=== PATIENT | male | born 1960 | race African-American/Black ===

== ENCOUNTER 2016-06-23 16:53 | Emergency (ER) | payer MEDICARE, OTHER ==
[~2016-06-23] VITALS: Ht 175.3 cm; Wt 76.0 kg
[~2016-06-23 16:53] MED LIST: ASCO500C PO; GLUCTES27 XX; NOVOLOGP2 SQ; OMPR20CCR PO; PROP20 PO; SM A81CH CHEW; VITA20002 PO; VITA250L PO; [UNRECOGNIZED DRUG - CODE] PO
[2016-06-23 17:00] VITALS: BP 127/71; PULSE 78; RESP 16; TEMP 98.6; O2SAT 97
--- NOTE | 2016-06-23 17:09 | PD ---
Physical Exam Narrative GENERAL: WD/WN in nad SKIN: Warm and dry. HEAD: Atraumatic. Normocephalic. No racoon's eyes no feliciano's sign. No bruising nor abrasion. EYES: Pupils equal and round. No scleral icterus. No injection or drainage. ENT: No nasal bleeding or discharge. Mucous membranes pink and moist. NECK: Trachea midline. No JVD. CARDIOVASCULAR: Regular rate and rhythm. RESPIRATORY: No accessory muscle use. Clear to auscultation. Breath sounds equal bilaterally. GASTROINTESTINAL: Abdomen soft, non-tender, nondistended. Hepatic and splenic margins not palpable. MUSCULOSKELETAL: Extremities without clubbing, cyanosis, or edema. No obvious deformities. NEUROLOGICAL: Awake and alert. No obvious cranial nerve deficits. Motor grossly within normal limits. Five out of 5 muscle strength in the arms and legs. Normal speech. PSYCHIATRIC: Appropriate mood and affect; insight and judgment normal. Data Data Last Documented VS Vital Signs Date Time Temp Pulse Resp B/P Pulse Ox O2 Delivery O2 Flow Rate FiO2 06/23/16 18:00 78 17 124/70 95 Room Air 06/23/16 17:00 98.6 Orders Electrocardiogram (06/23/16 17:04) Complete Blood Count With Diff (06/23/16 17:04) Comprehensive Metabolic Panel (06/23/16 17:04) Magnesium (Mg) (06/23/16 17:04) Ckmb (Isoenzyme) Profile (06/23/16 17:04) Troponin I (06/23/16 17:04) Act Partial Throm Time (Ptt) (06/23/16 17:04) Prothrombin Time / Inr (Pt) (06/23/16 17:04) Chest, Single Ap (06/23/16 17:04) Ct Brain W/O Iv Contrast(Rout) (06/23/16 17:04) Ecg Monitoring (06/23/16 17:04) Iv Access Insert/Monitor (06/23/16 17:04) Oximetry (06/23/16 17:04) Ondansetron Inj (Zofran Inj) (06/23/16 17:15) Sodium Chloride 0.9% Flush (Ns Flush) (06/23/16 17:15) Ct Facial Bones W/O Iv Cont (06/23/16 17:04) Ct Cerv Spine W/O Contrast (06/23/16 ) CKMB (06/23/16 17:15) CKMB% (06/23/16 17:15) Oxycodone-Acetamin 5-325 Mg (Percocet (06/23/16 19:15) Labs Laboratory Tests Test 06/23/16 17:15 White Blood Count 6.5 TH/MM3 Red Blood Count 3.89 MIL/MM3 Hemoglobin 12.1 GM/DL Hematocrit 36.4 % Mean Corpuscular Volume 93.6 FL Mean Corpuscular Hemoglobin 31.1 PG Mean Corpuscular Hemoglobin 33.3 % Concent Red Cell Distribution Width 15.5 % Platelet Count 120 TH/MM3 Mean Platelet Volume 10.3 FL Neutrophils (%) (Auto) 33.8 % Lymphocytes (%) (Auto) 39.8 % Monocytes (%) (Auto) 22.9 % Eosinophils (%) (Auto) 2.5 % Basophils (%) (Auto) 1.0 % Neutrophils # (Auto) 2.2 TH/MM3 Lymphocytes # (Auto) 2.6 TH/MM3 Monocytes # (Auto) 1.5 TH/MM3 Eosinophils # (Auto) 0.2 TH/MM3 Basophils # (Auto) 0.1 TH/MM3 CBC Comment DIFF FINAL Differential Comment Prothrombin Time 13.1 SEC Prothromb Time International 1.2 RATIO Ratio Activated Partial 34.4 SEC Thromboplast Time Sodium Level 139 MEQ/L Potassium Level 4.1 MEQ/L Chloride Level 107 MEQ/L Carbon Dioxide Level 23.3 MEQ/L Anion Gap 9 MEQ/L Blood Urea Nitrogen 15 MG/DL Creatinine 2.38 MG/DL Estimat Glomerular Filtration 34 ML/MIN Rate Random Glucose 104 MG/DL Calcium Level 8.2 MG/DL Magnesium Level 1.7 MG/DL Total Bilirubin 0.8 MG/DL Aspartate Amino Transf 84 U/L (AST/SGOT) Alanine Aminotransferase 34 U/L (ALT/SGPT) Alkaline Phosphatase 189 U/L Total Creatine Kinase 725 U/L Creatine Kinase MB 3.5 NG/ML Creatine Kinase MB % 0.5 % Troponin I LESS THAN 0.02 NG/ML Total Protein 6.9 GM/DL Albumin 2.5 GM/DL [facility] Supervised Visit with GARIMA: Yes Differential Diagnosis Patient care assumed from Howie Reid PA-C at 1710. Patient was on ambulance wall and now has a room in the emergency Department and I will be assuming primary care of this patient. Patient has had a syncopal episode after a coughing fit while smoking. No SOB, chest pain nor anemia. Imaging negative. Labs reassuring. He is feeling well at this time, requests discharge. Smoking cessation counseling. Discussed need for follow up with PCP. Diagnosis Primary Impression: Closed head injury Qualified Code: S09.90XA - Closed head injury, initial encounter Additional Impression: Syncope Disposition: 01 DISCHARGE HOME Condition: Stable Isaias De Leon MD Jun 23, 2016 17:09
[2016-06-23] MEDS ORDERED: ONDANSETRON HCL 4 MG/2 ML VIAL IVP ONE (17:15)
[2016-06-23] MEDS ORDERED: SODIUM CHLORIDE 0.9% FLUSH 5 ML FLUSH IVF PRN (17:15)
[2016-06-23 17:31] LABS: AUTOMATED NEUTROPHIL # 2.2 TH/MM3 (1.8-7.7); BASOPHIL # 0.1 TH/MM3 (0-0.2); EOSINOPHIL # 0.2 TH/MM3 (0-0.4); EOSINOPHIL % 2.5 % (0.0-4.0); HEMATOCRIT 36.4 % (39.0-51.0); HEMO FLAGS DIFF FINAL; LYMPH % 39.8 % (9.0-44.0); LYMPHOCYTE # 2.6 TH/MM3 (1.0-4.8); MEAN CELL VOLUME 93.6 FL (80.0-100.0); MEAN CORPUSCULAR HEMOGLOBIN 31.1 PG (27.0-34.0); MEAN CORPUSCULAR HGB CONC 33.3 % (32.0-36.0); MONO % 22.9 % (0.0-8.0); NEUT % 33.8 % (16.0-70.0); PLATELET COUNT 120 TH/MM3 (150-450); RED BLOOD COUNT 3.89 MIL/MM3 (4.50-5.90); RED CELL DISTRIBUTION WIDTH 15.5 % (11.6-17.2); WHITE BLOOD COUNT 6.5 TH/MM3 (4.0-11.0)
--- NOTE | 2016-06-23 17:31 | RADRPT ---
EXAM DATE/TIME: 06/23/2016 17:13 [facility] COMPARISON: CHEST SINGLE AP, January 09, 2016, 3:14. INDICATIONS : Palpitations MEDICAL HISTORY : Hypertension. Hepatitis C. Chronic obstructive pulmonary disease. Myocardial infarction. Coronary artery disease. SURGICAL HISTORY : None. ENCOUNTER: Initial ACUITY: 1 day PAIN SCORE: 0/10 LOCATION: Bilateral chest FINDINGS: A single view of the chest demonstrates the lungs to be symmetrically aerated without evidence of mas s, infiltrate or effusion. The cardiomediastinal contours are unremarkable. Osseous structures are intact. CONCLUSION: No acute disease. Domingo Nelson MD on June 23, 2016 at 17:29 Board Certified Radiologist. This report was verified electronically.
[2016-06-23 17:44] LABS: APTT (PATIENT) 34.4 SEC (24.3-30.1); INTERNATIONAL NORMALIZED RATIO 1.2 RATIO; PROTHROMBIN TIME - PATIENT 13.1 SEC (9.8-11.6)
--- NOTE | 2016-06-23 17:47 | RADRPT ---
EXAM DATE/TIME: 06/23/2016 17:25 [facility] COMPARISON: No previous studies available for comparison. INDICATIONS : Syncopal episode. RADIATION DOSE: 56.35 CTDIvol (mGy) IF STROKE ALERT - check box below MEDICAL HISTORY : Hypertension. SURGICAL HISTORY : None. ENCOUNTER: Initial ACUITY: 1 day PAIN SCALE: 0/10 LOCATION: cranial TECHNIQUE: Multiple contiguous axial images were obtained of the head. Using automated exposure control and adj ustment of the mA and/or kV according to patient size, radiation dose was kept as low as reasonably a chievable to obtain optimal diagnostic quality images. FINDINGS: CEREBRUM: The ventricles are normal for age. No evidence of midline shift, mass lesion, hemorrhage or acute in farction. No extra-axial fluid collections are seen. POSTERIOR FOSSA: The cerebellum and brainstem are intact. The 4th ventricle is midline. The cerebellopontine angle i s unremarkable. EXTRACRANIAL: The visualized portion of the orbits is intact. There is a posterior left parietal scalp injury. SKULL: The calvaria is intact. No evidence of skull fracture. CONCLUSION: 1. No intracranial abnormality. 2. Left posterior parietal scalp swelling. Domingo Nelson MD on June 23, 2016 at 17:45 Board Certified Radiologist. This report was verified electronically.
--- NOTE | 2016-06-23 17:49 | RADRPT ---
EXAM DATE/TIME: 06/23/2016 17:25 [facility] COMPARISON: No previous studies available for comparison. INDICATIONS : Trauma; fall. RADIATION DOSE: 54.68 CTDIvol (mGy) MEDICAL HISTORY : Hypertension. Renal failure, chronic. SURGICAL HISTORY : None. ENCOUNTER: Initial ACUITY: 1 day PAIN SCORE: 5/10 LOCATION: facial TECHNIQUE: Volumetric scanning of the facial bones was performed. Using automated exposure control and adjustme nt of the mA and/or kV according to patient size, radiation dose was kept as low as reasonably achiev able to obtain optimal diagnostic quality images. FINDINGS: ORBITS: The orbital and infraorbital osseous structures are intact. The retroconal structures have a normal configuration. No radiopaque foreign bodies are seen. NASAL BONE: The nasal bone and maxillary spine are intact ZYGOMATIC ARCHES: Symmetric without evidence of fracture. SINUSES: There is minimal bilateral maxillary, right frontal and right ethmoid sinus disease. NASAL CAVITY: The nasal septum is intact and midline. The lacrimal ducts are intact. SOFT TISSUES: No radiopaque foreign bodies seen. No soft-tissue swelling is seen. INTRACRANIAL: No intracranial air seen. CRIBIFORM PLATE: Grossly intact. CONCLUSION: 1. No fracture seen. 2. Mild sinus disease. Domingo Nelson MD on June 23, 2016 at 17:46 Board Certified Radiologist. This report was verified electronically.
[2016-06-23 18:00] VITALS: BP 124/70; PULSE 78; RESP 17; O2SAT 95
--- NOTE | 2016-06-23 18:00 | RADRPT ---
EXAM DATE/TIME: 06/23/2016 17:25 [facility] COMPARISON: CT CERVICAL SPINE W/O CONTRAST, May 14, 2015, 13:23. INDICATIONS : Trauma; fall. RADIATION DOSE: 23.64 CTDIvol (mGy) MEDICAL HISTORY : Hypertension. Renal failure, chronic. SURGICAL HISTORY : None. ENCOUNTER: Initial ACUITY: 1 day PAIN SCALE: 5/10 LOCATION: Neck TECHNIQUE: Volumetric scanning of the cervical spine was performed. Multiplanar reconstructions i n the sagittal, coronal and oblique axial planes were performed. Using automated exposure control a nd adjustment of the mA and/or kV according to patient size, radiation dose was kept as low as reason ably achievable to obtain optimal diagnostic quality images. FINDINGS: The craniovertebral junction is normal. The C1 ring is intact. There is some widening of the anteri or C1-C2 distance measuring 4 mm. Typically it measures 2 mm. However, this appearance is completel y unchanged from the prior examination. The dens is intact. The cervical vertebral bodies demonstra te some loss of height at C3 through this C6. This configuration is unchanged. There is sclerosis a t the C3 through C6 regions. This is unchanged. The cervical vertebral bodies are normally aligned. C2-C3: The disc space is grossly intact. Significant spinal stenosis is not appreciated. There is right-sided facet hypertrophy. The left-sided facet appears normal. C3-C4: The disc space is narrowed. There is minimal bulging. Significant stenosis is not appreciat ed. There is prominent anterior hypertrophic change and spurring. The neural foramina are grossly n ormal. C4-C5: The disc space is narrowed. There is mild posterior bulging and osteophytic ridging. There is prominent anterior hypertrophic change and spurring. The neural foramina are normal. Significant stenosis is not appreciated. C5-C6: The disc space is narrowed. A significant impression on the thecal sac is not seen. Promine nt anterior hypertrophic change and spurring is present. The neural foramina are normal. C6-C7: There is posterior osteophytic ridging causing a mild impression on the anterior left side of the thecal sac. There is narrowing of the left neural foramen. The right neural foramen appears in tact. C7-T1: Intact. CONCLUSION: Chronic change throughout the cervical spine as described above. These findings are stable. No new or acute abnormality is seen. Domingo Nelson MD on June 23, 2016 at 17:48 Board Certified Radiologist. This report was verified electronically.
[2016-06-23 18:03] LABS: ALKALINE PHOSPHATASE 189 U/L (45-117); ALT (GPT) 34 U/L (12-78); ANION GAP 9 MEQ/L (5-15); AST (GOT) 84 U/L (15-37); BICARBONATE 23.3 MEQ/L (21.0-32.0); BLOOD UREA NITROGEN 15 MG/DL (7-18); CHLORIDE 107 MEQ/L (98-107); CREATINE KINASE 725 U/L (39-308); GLOMERULAR FILTRATION RATE 34 ML/MIN (>89); MAGNESIUM 1.7 MG/DL (1.5-2.5); SODIUM (NA) 139 MEQ/L (136-145); TOTAL BILIRUBIN ADULT 0.8 MG/DL (0.2-1.0)
[2016-06-23 18:07] LABS: POTASSIUM 4.1 MEQ/L (3.5-5.1)
[2016-06-23 18:20] LABS: CKMB 3.5 NG/ML (0.5-3.6)
[2016-06-23] MEDS ORDERED: VITA500T4 PO (18:29)
[2016-06-23] MEDS ORDERED: [UNRECOGNIZED DRUG - CODE] TOPICAL (18:29)
[2016-06-23] MEDS ORDERED: PROP20TA3 PO (18:29)
[2016-06-23] MEDS ORDERED: ASPI1TAB69 PO (18:29)
[2016-06-23] MEDS ORDERED: MIRTA15 PO (18:29)
[2016-06-23] MEDS ORDERED: PERC5TAB12 PO (18:29)
[2016-06-23] MEDS ORDERED: VITATAB56 PO (18:29)
[2016-06-23] MEDS ORDERED: HYDR-3534 PO (18:29)
[2016-06-23] MEDS ORDERED: VITA500T PO (18:29)
[2016-06-23] MEDS ORDERED: ATOR40TA16 PO (18:29)
[2016-06-23] MEDS ORDERED: NATU400T PO (18:29)
[2016-06-23] MEDS ORDERED: MEGE40SU PO (18:29)
[2016-06-23] MEDS ORDERED: LISI10TA3 PO (18:29)
[2016-06-23] MEDS ORDERED: NOVOLOGP2 SQ (18:29)
[2016-06-23] MEDS ORDERED: OMEP20TA PO (18:29)
[2016-06-23] MEDS ORDERED: oxyCODONE/ACETAMINOPHEN 5 MG/325 MG TAB PO ONE (19:15)
--- NOTE | 2016-06-24 17:18 | EKG ---
Date Performed: 06/23/2016 Time Performed: 17:08:37 PTAGE: 55 years EKG: Sinus rhythm Compared to prior tracing no significant change NORMAL ECG PREVIOUS TRACING : 02/06/2016 07.18 DOCTOR: Jak Kovacs Interpretating Date/Time 06/24/2016 17:16:33
--- NOTE | 2016-06-28 11:08 | PD ---
HPI Chief Complaint: Syncope/Near-Syncope Time Seen by Provider: 11:07 Travel History International Travel<30 days: No Contact w/Intl Traveler<30days: No Traveled to known affect area: No History of Present Illness HPI 56-year-old Afro-[place] male brought in by ambulance status post syncopal episode with question of head injury and LOC. Patient states he was walking down the street, when he had a sudden onset coughing fit. The patient then woke up in the middle of the street with someone asked him if he was okay. Patient is complaining of a headache and has a large bruise to the back of his head. There is no open wound. Patient is complaining of headache and left jaw pain just below the ear. He denies dental injury. He has no complaints of pain in the neck or thorax or abdomen or extremities. Patient is a diabetic, and has renal insufficiency. Patient was not hypoglycemic per EMS. Patient has no history of seizure disorder. Patient has history of MRSA allergies to Cetirizine, and shellfish. The patient is seen in the ambulance lee and is awaiting bed placement. PFSH Past Medical History Hx Anticoagulant Therapy: Yes Cancer: No Cardiovascular Problems: Yes ([place]) Diabetes: Yes (IDDM) Patient Takes Glucophage: Yes Endocrine: Yes Gastrointestinal Disorders: Yes (GERD) GERD: Yes Genitourinary: No Hepatitis: Yes (C) Hiatal Hernia: No Hypertension: Yes Immune Disorder: No Musculoskeletal: Yes ( ARTHRITIS IN SHOULDERS & BACK & NECK) Neurologic: No Psychiatric: No Respiratory: Yes (SLEEP APNEA) Migraines: Yes Myocardial Infarction: Yes (X 2) Thyroid Disease: No Past Surgical History Abdominal Surgery: No AICD: No Body Medical Devices: AV FISTULA TO RUE, VAS CATH TO RIGHT CHEST Cardiac Surgery: No Ear Surgery: No Endocrine Surgery: No Genitourinary Surgery: No Joint Replacement: Yes (SCREW PLACED/REMOVED) Pacemaker: No Thoracic Surgery: No Other Surgery: Yes (AV FISTULA R ARM) Social History Alcohol Use: No Tobacco Use: Yes (1/2 PPD) Substance Use: Yes (POT) Allergies-Medications (Allergen,Severity, Reaction): Coded Allergies: Cetirizine (Verified Allergy, Severe, RASH, 03/05/16) Shellfish (Verified Allergy, Intermediate, 03/05/16) fish and shellfish *MDRO Multi-Drug Resistant Organism (Verified Allergy, Unknown, 8/9/16) MRSA 2006, 2012 & 2013 Reported Meds & Prescriptions Reported Meds & Active Scripts Active Reported Novolog Inj (Insulin Aspart) 1,000 Unit/10 Ml Vial 0 SQ DIRECTED Sliding Scale as directed. Lortab (Hydrocodone-Acetaminophen) 7.5-325 Mg Tab 1 Tab PO Q4H PRN Megestrol Liq (Megestrol Acetate) 40 Mg/Ml Susp 400 Mg PO BID Percocet (Oxycodone-Acetaminophen) 5-325 mg Tab 1 Tab PO Q4H PRN Mirtazapine 15 Mg Tab 15 Mg PO HS Vitamin E 400 Unit Tab 400 Units PO DAILY Vitamin D-400 (Cholecalciferol) 400 Unit Tab 800 Units PO BID Vitamin C (Ascorbic Acid) 500 Mg Tab 500 Mg PO DAILY Vitamin B-12 (Cyanocobalamin) 500 Mcg Tab 500 Mcg PO DAILY Propranolol (Propranolol HCl) 20 Mg Tab 20 Mg PO BID Protopic Topical (Tacrolimus Topical) 0.03 % Oint 1 Applic TOPICAL BID Lisinopril 10 Mg Tab 10 Mg PO BID ON HOLD Aspirin 81 Mg Tabdr 81 Mg PO DAILY ON HOLD Omeprazole 20 Mg Tab 20 Mg PO BID Atorvastatin (Atorvastatin Calcium) 40 Mg Tab 40 Mg PO HS Review of Systems Except as stated in HPI: all other systems reviewed are Neg General / Constitutional: No: Fever Eyes: No: Diploplia, Blurred Vision, Photophobia, Drainage, Redness, Foreign Body Sensation, Pain, Tearing, Blind Spots, Visual changes, Blindness HENT: Positive: Headaches, No: Vertigo, Lightheadedness, Sore Throat, Rhinitis , Rhinorrhea, Neck Stiffness, Neck Pain Cardiovascular: No: Chest Pain or Discomfort Respiratory: No: Cough, Shortness of Breath, Wheezing Gastrointestinal: No: Nausea, Vomiting, Diarrhea, Abdominal Pain Genitourinary: No: Dysuria Musculoskeletal: No: Pain Skin: No Rash Neurologic: Positive: Syncope (see history present illness), Headache (see history present illness), No: Weakness Psychiatric: No: Depression Endocrine: No: Polydipsia Hematologic/Lymphatic: No: Easy Bruising Physical Exam Narrative GENERAL: Patient appears in no acute distress. SKIN: Warm and dry. Normal color. Normal turgor. No diaphoresis. Patient has a large hematoma to the posterior scalp without abrasion or open wound. HEAD: Atraumatic. Normocephalic. See skin. EYES: Pupils equal and round. No scleral icterus. No injection or drainage. ENT: No nasal bleeding or discharge. Mucous membranes pink and moist. No obvious dental injury. Patient has tenderness with palpation at the left jaw above the ramus, without obvious deformity or crepitus appreciated. Patient has pain with trying to open his jaw fully. NECK: Trachea midline. No JVD. No bony tenderness or step-off. Neck is supple throughout range of motion. C-spine is cleared based on Nexus criteria. CARDIOVASCULAR: Regular rate and rhythm. RESPIRATORY: No accessory muscle use. Clear to auscultation. Breath sounds equal bilaterally. GASTROINTESTINAL: Abdomen soft, non-tender, nondistended. Hepatic and splenic margins not palpable. MUSCULOSKELETAL: Extremities without clubbing, cyanosis, or edema. No obvious deformities. NEUROLOGICAL: Awake and alert. No obvious cranial nerve deficits. Motor grossly within normal limits. Five out of 5 muscle strength in the arms and legs. Normal speech. PSYCHIATRIC: Appropriate mood and affect; insight and judgment normal. Data Data Orders Electrocardiogram (06/23/16 17:04) Complete Blood Count With Diff (06/23/16 17:04) Comprehensive Metabolic Panel (06/23/16 17:04) Magnesium (Mg) (06/23/16 17:04) Ckmb (Isoenzyme) Profile (06/23/16 17:04) Troponin I (06/23/16 17:04) Act Partial Throm Time (Ptt) (06/23/16 17:04) Prothrombin Time / Inr (Pt) (06/23/16 17:04) Chest, Single Ap (06/23/16 17:04) Ct Brain W/O Iv Contrast(Rout) (06/23/16 17:04) Ecg Monitoring (06/23/16 17:04) Iv Access Insert/Monitor (06/23/16 17:04) Oximetry (06/23/16 17:04) Ondansetron Inj (Zofran Inj) (06/23/16 17:15) Sodium Chloride 0.9% Flush (Ns Flush) (06/23/16 17:15) Ct Facial Bones W/O Iv Cont (06/23/16 17:04) Ct Cerv Spine W/O Contrast (06/23/16 ) CKMB (06/23/16 17:15) CKMB% (06/23/16 17:15) Oxycodone-Acetamin 5-325 Mg (Percocet (06/23/16 19:15) MDM Medical Decision Making Medical Screen Exam Complete: Yes Emergency Medical Condition: Yes Differential Diagnosis Syncopal episode. Vasovagal episode. Head injury. Possible jaw fracture. Narrative Course Patient is medically stable at time of exam. Labs ordered including CBC, CMP and cardiac panel per protocol, PT PTT and INR. Chest x-ray is ordered as well as head CT, CT of the maxillofacial bones, CT of the and cervical spine. IV access is ordered. Patient is awaiting medical bed placement. Patient is moved to [facility] upon and patient care is assumed by Dr. De Leon. Please see his note for disposition. Diagnosis Primary Impression: Closed head injury Qualified Code: S09.90XA - Closed head injury, initial encounter Additional Impression: Syncope Patient Instructions: General Instructions, Narcotic given in the ED, Syncope ( ED), Concussion (ED) Departure Forms: Tests/Procedures Disposition: 01 DISCHARGE HOME Condition: Stable Howie Reid Jun 28, 2016 11:08
== END 2016-06-23 19:30 | disposition home or self-care (01) ==
LOC: NEPA 16:53
DX: S09.90XA Unspecified injury of head, initial encounter (principal); R55 Syncope and collapse; X58.XXXA Exposure to other specified factors, initial encounter; Y93.01 Activity, walking, marching and hiking; Y92.410 Unspecified street and highway as the place of occurrence of the external cause
CPT/HCPCS: 70450; 70486; 71010; 72125; 80053; 82550; 82552; 83735; 84484; 85025; 85610; 85730; 93005

== ENCOUNTER 2017-03-03 05:34 | Inpatient (IN) | payer MEDICARE, OTHER ==
[~2017-03-03] VITALS: Ht 175.3 cm; Wt 77.5 kg
[2017-03-03] VITALS (7 sets, daily range): BP systolic 97–125; BP diastolic 55–78; PULSE 73–110; RESP 16–18; TEMP 98.2–99.5; O2SAT 97–99
[~2017-03-03 05:34] MED LIST changes: -ASCO500C PO; +ASPI1TAB69 PO; +ATOR40TA16 PO; -GLUCTES27 XX; +HYDR-3534 PO; +LISI10TA3 PO; +MEGE40SU PO; +MIRTA15 PO; +NATU400T PO; +OMEP20TA PO; -OMPR20CCR PO; +PERC5TAB12 PO; -PROP20 PO; +PROP20TA3 PO; -SM A81CH CHEW; -VITA20002 PO; -VITA250L PO; +VITA500T PO; +VITA500T4 PO; +VITATAB56 PO; -[UNRECOGNIZED DRUG - CODE] PO; +[UNRECOGNIZED DRUG - CODE] TOPICAL
[2017-03-03] MEDS ORDERED: CLINDAMYCIN INJ 900 MG in SODIUM CHLORIDE 0.9% INJ 100 ML IV ONE (06:00)
--- NOTE | 2017-03-03 06:04 | PD ---
HPI Chief Complaint: Hip Injury Time Seen by Provider: 05:58 Travel History International Travel<30 days: No Contact w/Intl Traveler<30days: No Traveled to known affect area: No History of Present Illness HPI 56-year-old male presents to the emergency department complaining of progressive worsening left buttock cheek pain and swelling 2 weeks. Patient denies fever chills. Patient has history of chronic kidney disease. Patient denies any injury or fall. Patient rates his pain as 10 over 10 in intensity. PFSH Past Medical History Narrative Medical [place] diabetes hypertension renal failure right AV fistula GERD hepatitis C tobacco use; nursing notes reviewed Hx Anticoagulant Therapy: Yes Cancer: No Cardiovascular Problems: Yes ([place]) Diabetes: Yes (IDDM) Patient Takes Glucophage: No Diminished Hearing: No Endocrine: Yes Gastrointestinal Disorders: Yes (GERD) GERD: Yes Genitourinary: No Hepatitis: Yes (C) Hiatal Hernia: No Hypertension: Yes Immune Disorder: No Musculoskeletal: Yes ( ARTHRITIS IN SHOULDERS & BACK & NECK) Neurologic: No Psychiatric: No Respiratory: Yes (SLEEP APNEA) Migraines: Yes Myocardial Infarction: Yes (X 2) Thyroid Disease: No Tetanus Vaccination: < 5 Years Past Surgical History Abdominal Surgery: No AICD: No Body Medical Devices: AV FISTULA TO RUE, VAS CATH TO RIGHT CHEST Cardiac Surgery: No Ear Surgery: No Endocrine Surgery: No Genitourinary Surgery: No Joint Replacement: Yes (SCREW PLACED/REMOVED in left knee) Pacemaker: No Thoracic Surgery: No Other Surgery: Yes (AV FISTULA R ARM) Social History Alcohol Use: No Tobacco Use: Yes (1/2 PPD) Substance Use: No Allergies-Medications (Allergen,Severity, Reaction): Coded Allergies: cetirizine (Unverified Allergy, Severe, RASH, 01/14/17) shellfish derived (Unverified Allergy, Intermediate, 01/14/17) fish and shellfish *MDRO Multi-Drug Resistant Organism (Verified Allergy, Unknown, 01/09/16) MRSA 2006, 2012 & 2013 Reported Meds & Prescriptions Reported Meds & Active Scripts Active Reported Novolog Inj (Insulin Aspart) 1,000 Unit/10 Ml Vial 0 SQ DIRECTED Sliding Scale as directed. Lortab (Hydrocodone-Acetaminophen) 7.5-325 Mg Tab 1 Tab PO Q4H PRN Megestrol Liq (Megestrol Acetate) 40 Mg/Ml Susp 400 Mg PO BID Percocet (Oxycodone-Acetaminophen) 5-325 mg Tab 1 Tab PO Q4H PRN Mirtazapine 15 Mg Tab 15 Mg PO HS Vitamin E 400 Unit Tab 400 Units PO DAILY Vitamin D-400 (Cholecalciferol) 400 Unit Tab 800 Units PO BID Vitamin C (Ascorbic Acid) 500 Mg Tab 500 Mg PO DAILY Vitamin B-12 (Cyanocobalamin) 500 Mcg Tab 500 Mcg PO DAILY Propranolol (Propranolol HCl) 20 Mg Tab 20 Mg PO BID Protopic Topical (Tacrolimus Topical) 0.03 % Oint 1 Applic TOPICAL BID Lisinopril 10 Mg Tab 10 Mg PO BID ON HOLD Aspirin 81 Mg Tabdr 81 Mg PO DAILY ON HOLD Omeprazole 20 Mg Tab 20 Mg PO BID Atorvastatin (Atorvastatin Calcium) 40 Mg Tab 40 Mg PO HS Review of Systems Except as stated in HPI: all other systems reviewed are Neg General / Constitutional: No: Fever, Chills HENT: No: Congestion Cardiovascular: No: Chest Pain or Discomfort Gastrointestinal: No: Nausea, Vomiting, Abdominal Pain Genitourinary: No: Flank Pain Musculoskeletal: Positive: Pain (left buttock) Skin: Positive Lumps, No Rash Neurologic: No: Weakness (left buttock) Psychiatric: No: Anxiety Hematologic/Lymphatic: No: Lymph Node Enlargement Physical Exam Narrative Well-developed well-developed well-nourished male in no acute distress no respiratory distress GENERAL: SKIN: Warm and dry. HEAD: Normocephalic. EYES: No scleral icterus. No injection or drainage. NECK: Supple, trachea midline. No JVD or lymphadenopathy. CARDIOVASCULAR: Regular rate and rhythm without murmurs, gallops, or rubs. RESPIRATORY: Breath sounds equal bilaterally. No accessory muscle use. GASTROINTESTINAL: Abdomen soft, non-tender, nondistended. Hepatic: MUSCULOSKELETAL: No cyanosis, or edema. BACK: Nontender without obvious deformity; left buttock cheek medial aspect induration center fluctuance with crepitus no eschar no pointing no spontaneous drainage; spares perineum. No CVA tenderness. Data Data Last Documented VS Vital Signs Date Time Temp Pulse Resp B/P (MAP) Pulse Ox O2 Delivery O2 Flow Rate FiO2 03/03/17 05:53 95 18 125/66 (85) 99 03/03/17 05:36 99.2 Orders Orders Basic Metabolic Panel (Bmp) (03/03/17 05:58) Complete Blood Count With Diff (03/03/17 05:58) Blood Culture (03/03/17 05:58) Wound Culture And Gram Stain (03/03/17 05:58) Iv Access Insert/Monitor (03/03/17 05:58) Clindamycin Inj (Cleocin Inj) (03/03/17 06:00) Ct Pelvis W Iv Contrast(Rout) (03/03/17 ) Lactic Acid (03/03/17 05:58) Ct Abd/Pel W/O Iv Contrast (03/03/17 ) Labs Laboratory Tests Test 03/03/17 06:15 White Blood Count 18.8 TH/MM3 Red Blood Count 4.21 MIL/MM3 Hemoglobin 12.6 GM/DL Hematocrit 38.0 % Mean Corpuscular Volume 90.3 FL Mean Corpuscular Hemoglobin 29.9 PG Mean Corpuscular Hemoglobin Concent 33.1 % Red Cell Distribution Width 14.1 % Platelet Count 216 TH/MM3 Mean Platelet Volume 7.8 FL Neutrophils (%) (Auto) 69.4 % Lymphocytes (%) (Auto) 12.4 % Monocytes (%) (Auto) 17.6 % Eosinophils (%) (Auto) 0.3 % Basophils (%) (Auto) 0.3 % Neutrophils # (Auto) 13.0 TH/MM3 Lymphocytes # (Auto) 2.3 TH/MM3 Monocytes # (Auto) 3.3 TH/MM3 Eosinophils # (Auto) 0.1 TH/MM3 Basophils # (Auto) 0.1 TH/MM3 CBC Comment AUTO DIFF Differential Comment AUTO DIFF CONFIRMED Blood Urea Nitrogen 25 MG/DL Creatinine 3.14 MG/DL Random Glucose 149 MG/DL Calcium Level 8.3 MG/DL Sodium Level 125 MEQ/L Potassium Level 4.9 MEQ/L Chloride Level 96 MEQ/L Carbon Dioxide Level 17.6 MEQ/L Anion Gap 11 MEQ/L Estimat Glomerular Filtration Rate 25 ML/MIN Lactic Acid Level 3.5 mmol/L [facility] Medical Decision Making Medical Screen Exam Complete: Yes Emergency Medical Condition: Yes Medical Record Reviewed: Yes Differential Diagnosis Cellulitis, abscess, fistula Narrative Course IV access obtained specimens collected and sent for resulting; patient administered clindamycin Care signed over to Dr Finney @ [id number] Liliam Mchugh MD Mar 03, 2017 06:04
[2017-03-03 06:24] LABS: BASOPHIL # 0.1 TH/MM3 (0-0.2); BASOPHIL % 0.3 % (0.0-2.0); EOSINOPHIL # 0.1 TH/MM3 (0-0.4); EOSINOPHIL % 0.3 % (0.0-4.0); LYMPH % 12.4 % (9.0-44.0); LYMPHOCYTE # 2.3 TH/MM3 (1.0-4.8); MEAN CELL VOLUME 90.3 FL (80.0-100.0); MEAN CORPUSCULAR HEMOGLOBIN 29.9 PG (27.0-34.0); MEAN CORPUSCULAR HGB CONC 33.1 % (32.0-36.0); MONO % 17.6 % (0.0-8.0); NEUT % 69.4 % (16.0-70.0); PLATELET COUNT 216 TH/MM3 (150-450); RED BLOOD COUNT 4.21 MIL/MM3 (4.50-5.90); RED CELL DISTRIBUTION WIDTH 14.1 % (11.6-17.2); WHITE BLOOD COUNT 18.8 TH/MM3 (4.0-11.0)
[2017-03-03 06:29] LABS: HEMO FLAGS AUTO DIFF
[2017-03-03 06:54] LABS: BICARBONATE 17.6 MEQ/L (21.0-32.0); POTASSIUM 4.9 MEQ/L (3.5-5.1)
[2017-03-03 07:00] LABS: SCAN/DIFF AUTO DIFF CONFIRMED
[2017-03-03] MEDS ORDERED: SODIUM CHLOR 0.9% 1000 ML INJ 1,000 ML IV ONE (07:15)
--- NOTE | 2017-03-03 07:29 | RADRPT ---
EXAM DATE/TIME: 03/03/2017 07:06 [facility] COMPARISON: No previous studies available for comparison. INDICATIONS : Left buttock pain. ORAL CONTRAST: No oral contrast ingested. RADIATION DOSE: 8.29 CTDIvol (mGy) MEDICAL HISTORY : Cardiovascular disease. Hypertension. Hepatitis C. SURGICAL HISTORY : None. ENCOUNTER: Initial ACUITY: 1 day PAIN SCALE: 5/10 LOCATION: Left pelvis TECHNIQUE: Volumetric scanning of the pelvis was performed. Using automated exposure control and adjustment of the mA and/or kV according to patient size, radiation dose was kept as low as reasonably achievable t o obtain optimal diagnostic quality images. DICOM format image data is available electronically for review and comparison. FINDINGS: BOWEL/MESENTERY: There is bilateral perirectal abscess seen within the posterior perineal soft tissues larger on the l eft measuring 6.2 x 7.2 cm. There is air and stool within the abscess bilaterally. The one on the lef t measures 6.2 x 7.0 cm. One on the right measures 2.6 x 4.9 cm. Small amount of pelvic ascites. BLADDER: There is no wall thickening or mass. There is air in the bladder. RETROPERITONEUM: There is no aneurysm or lymphadenopathy. REPRODUCTIVE: Within normal limits. INGUINAL: There is no lymphadenopathy or hernia. MUSCULOSKELETAL: Within normal limits for patient age. CONCLUSION: 1. Bilateral perirectal abscess these seen within the posterior soft tissue. The one of the left is l arger measuring 6.2 x 7.0 cm. 2. Small amount of pelvic ascites. 3. Air in the urinary bladder to be iatrogenic versus less likely infection or fistula formation. Cecil Tavares MD on March 03, 2017 at 7:23 Board Certified Radiologist. This report was verified electronically.
[2017-03-03] MEDS ORDERED: D5-1/2 NS + KCL 20 MEQ INJ 1,000 ML IV SCH (09:45)
--- NOTE | 2017-03-03 09:57 | PD ---
Physical Exam Narrative Received sign out from previous provider to follow up with CT scan and reevaluate. 56yo M with left sided buttock pain and swelling for 2 weeks. Pt saw a doctor 2 weeks ago but cant remember his name. Denies any fever, trauma, IVDA. Labs reviewed, leukocytosis at 18.8. Elevated lactic acid at 3.5. BUN/creatinine elevated at 25/3.14 which is mildly increased from baseline of creatinine of 2.38. CT pelvis showed bilateral perirectal abscess, larger on left with some air. Pt was given clindamycin by previous team. I gave him NS IVF. I discussed with colorectal surgeon Dr. Wong and he said that he knows him and to keep him NPO and give maintenance fluid and he will take him to the OR for I& D. I discussed with hospitalist Dr. Mills and pt is accepted to his service. Data Data Last Documented VS Vital Signs Date Time Temp Pulse Resp B/P (MAP) Pulse Ox O2 Delivery O2 Flow Rate FiO2 03/03/17 05:53 95 18 125/66 (85) 99 03/03/17 05:36 99.2 Orders Orders Basic Metabolic Panel (Bmp) (03/03/17 05:58) Complete Blood Count With Diff (03/03/17 05:58) Blood Culture (03/03/17 05:58) Wound Culture And Gram Stain (03/03/17 05:58) Iv Access Insert/Monitor (03/03/17 05:58) Clindamycin Inj (Cleocin Inj) (03/03/17 06:00) Lactic Acid (03/03/17 05:58) Ct Pelvis W/O Iv Contrast (03/03/17 ) Sodium Chlor 0.9% 1000 Ml Inj (Ns 1000 M (03/03/17 07:15) D5-1/2 Ns + Kcl 20 Meq Inj (D5-1/2 Ns + (03/03/17 09:45) NPO (03/03/17 09:37) Prothrombin Time / Inr (Pt) (03/03/17 09:39) Act Partial Throm Time (Ptt) (03/03/17 09:39) Type And Screen (03/03/17 09:39) Admit Order (Ed Use Only) (03/03/17 09:49) Labs Laboratory Tests Test 03/03/17 06:15 White Blood Count 18.8 TH/MM3 Red Blood Count 4.21 MIL/MM3 Hemoglobin 12.6 GM/DL Hematocrit 38.0 % Mean Corpuscular Volume 90.3 FL Mean Corpuscular Hemoglobin 29.9 PG Mean Corpuscular Hemoglobin Concent 33.1 % Red Cell Distribution Width 14.1 % Platelet Count 216 TH/MM3 Mean Platelet Volume 7.8 FL Neutrophils (%) (Auto) 69.4 % Lymphocytes (%) (Auto) 12.4 % Monocytes (%) (Auto) 17.6 % Eosinophils (%) (Auto) 0.3 % Basophils (%) (Auto) 0.3 % Neutrophils # (Auto) 13.0 TH/MM3 Lymphocytes # (Auto) 2.3 TH/MM3 Monocytes # (Auto) 3.3 TH/MM3 Eosinophils # (Auto) 0.1 TH/MM3 Basophils # (Auto) 0.1 TH/MM3 CBC Comment AUTO DIFF Differential Comment AUTO DIFF CONFIRMED Blood Urea Nitrogen 25 MG/DL Creatinine 3.14 MG/DL Random Glucose 149 MG/DL Calcium Level 8.3 MG/DL Sodium Level 125 MEQ/L Potassium Level 4.9 MEQ/L Chloride Level 96 MEQ/L Carbon Dioxide Level 17.6 MEQ/L Anion Gap 11 MEQ/L Estimat Glomerular Filtration Rate 25 ML/MIN Lactic Acid Level 3.5 mmol/L [facility] Supervised Visit with GARIMA: No Diagnosis Primary Impression: Perirectal abscess Admitting Information Admitting Physician Requests: Admit Octavia Finney DO Mar 03, 2017 09:57
[2017-03-03] MEDS ORDERED: ACETAMINOPHEN 325 MG TAB PO PRN ×2 (10:15→16:30)
[2017-03-03] MEDS ORDERED: MAGNESIUM HYDROXIDE SUSP 30 ML CUP PO PRN (10:15)
[2017-03-03] MEDS ORDERED: NALOXONE HCL 0.4 MG/ML AMP IV PUSH PRN (10:15)
[2017-03-03] MEDS ORDERED: LACTULOSE SYRUP 20 GM/30 ML CUP PO PRN (10:15)
[2017-03-03] MEDS ORDERED: MORPHINE SULFATE 4 MG/ML INJ IV PUSH PRN ×2 (10:15)
[2017-03-03] MEDS ORDERED: SODIUM CHLORIDE 0.9% FLUSH 10 ML FLUSH IV FLUSH PRN (10:15)
[2017-03-03] MEDS ORDERED: BISACODYL 10 MG SUPP RECTAL PRN (10:15)
[2017-03-03] MEDS ORDERED: SENNOSIDES 8.6 MG TAB PO PRN (10:15)
[2017-03-03] MEDS ORDERED: ONDANSETRON HCL 4 MG/2 ML VIAL IVP PRN (10:15)
[2017-03-03 10:32] LABS: APTT (PATIENT) 44.4 SEC (24.3-30.1); INTERNATIONAL NORMALIZED RATIO 1.5 RATIO; PROTHROMBIN TIME - PATIENT 16.7 SEC (9.8-11.6)
[2017-03-03] MEDS ORDERED: SODIUM CHLOR 0.9% 1000 ML INJ 1,000 ML IV SCH (11:00)
[2017-03-03] MEDS ORDERED: GLYCOPYRROLATE 1 MG/5 ML SYRINGE IV PUSH ONE (12:00)
[2017-03-03] MEDS ORDERED: NEOSTIGMINE 3 MG/3 ML SYR IV ONE (12:00)
[2017-03-03] MEDS ORDERED: LIDOCAINE HCL 1% PF 5 ML AMPULE OTHER ONE (12:00)
[2017-03-03] MEDS ORDERED: ONDANSETRON HCL 4 MG/2 ML VIAL IV PUSH ONE (12:00)
[2017-03-03] MEDS ORDERED: metroNIDAZOLE 500 MG INJ 100 ML IV SCH (12:00)
[2017-03-03] MEDS ORDERED: PROPOFOL 200 MG/20 ML AMP IV ONE (12:00)
[2017-03-03] MEDS ORDERED: MIDAZOLAM HCL 2 MG/2 ML VIAL IV ONE (12:00)
[2017-03-03] MEDS ORDERED: ceFAZolin INJ 1,000 MG VIAL IV ONE ×2 (12:00→15:40)
[2017-03-03] MEDS ORDERED: ESMOLOL HCL 100 MG/10 ML VIAL IV ONE (12:00)
[2017-03-03] MEDS ORDERED: SODIUM CHLORIDE 0.9% FLUSH 5 ML FLUSH IVF PRN (16:30)
[2017-03-03] MEDS ORDERED: POTASSIUM CHLOR 40 MEQ PREMIX 100 ML IV PRN (16:30)
[2017-03-03] MEDS ORDERED: BENZOCAINE 6 MG/MENTHOL 10 MG LOZENGE BUCCAL PRN (16:30)
[2017-03-03] MEDS ORDERED: POTASSIUM CHLOR 20 MEQ PREMIX 100 ML IV PRN (16:30)
[2017-03-03] MEDS ORDERED: ACETAMINOPHEN/HYDROcodone 325 MG/5 MG TAB PO PRN ×2 (16:30)
[2017-03-03] MEDS ORDERED: NALOXONE HCL 0.4 MG/ML AMP IV PRN (16:30)
[2017-03-03] MEDS ORDERED: ENALAPRILAT 1.25 MG/ML VIAL IV PRN (16:30)
[2017-03-03] MEDS ORDERED: ONDANSETRON HCL 4 MG/2 ML VIAL IV PRN (16:30)
[2017-03-03] MEDS ORDERED: KETOROLAC TROMETHAMINE 30 MG/ML (IVP) VIAL IVP PRN (16:30)
[2017-03-03] MEDS: PCA - TOTAL MG MORPHINE DELIVERED PER SHIFT SCH ×2 (16:30→23:34)
[2017-03-03] MEDS ORDERED: ENALAPRILAT 2.5 MG/2 ML VIAL IV PRN (16:30)
[2017-03-03] MEDS ORDERED: MORPHINE SULFATE 30 MG/30 ML PCA IV SCH (16:30)
[2017-03-03] MEDS ORDERED: Post-op Orders (for Pharmacy) MISC XX ONE (16:30)
[2017-03-03] MEDS ORDERED: SUGAMMADEX SODIUM 200 MG/2 ML VIAL IV PUSH ONE ×2 (16:31)
--- NOTE | 2017-03-03 16:35 | HHI.PR ---
Immediate Post Op Note Procedure Date: Mar 03, 2017 Pre Op Diagnosis: Rectal abscess Post Op Diagnosis: same Surgeon: Howie Wong Technical Agronomist(s): None Procedure: EUA, drainage horseshoe abscess Findings: Large horseshow abscess. extending up to pelvis floor on left Very little tissue Complications: None Specimen(s) removed: Pus Estimated blood loss: 50cc Anesthesia: General Drains: Other IVF Patient to: PACU Patient Condition: Good Howie Wong MD Mar 03, 2017 16:35
[2017-03-03] MEDS: D5-NS + KCL 20 MEQ INJ 1,000 ML IV SCH ×2 (17:00→23:31)
--- NOTE | 2017-03-03 17:28 | HHI.HP ---
HPI Service [facility] Primary Care Physician Domingo Batres, Admission Diagnosis Perirectal abscess Diagnoses: Chief Complaint: left side buttock pain Travel History International Travel<30 Days: No Contact w/Intl Traveler <30 Da: No Traveled to Known Affected Are: No Sepsis Criteria SIRS Criteria (2 or more): Heart rate over 90, WBC > 35897, < 4000 or > 10% bands Sepsis Criteria (SIRS+source): Infect source susp/known Severe Sepsis (+one): Organ Dysfunction, Lactate >2 Criteria Outcome: Meets severe sepsis criteria History of Present Illness This is a 56-year-old male with past medical history significant for insulin- dependent diabetes mellitus, hypertension who presents to [facility] complaining of left-sided buttock pain and swelling for 2 weeks. The patient is status post surgical station and drainage and cannot give very good history at this moment. History obtained from medical records. The patient states that he saw 2 weeks ago but he could not remember his name. The patient however denies any fevers or chills, patient as per records has history of chronic kidney disease, denies any injury or fall. Denies any chest pain, short of breath, denies nausea, denies vomiting, denies abdominal pain, denies dysuria. Review of Systems As per history of present illness, other systems reviewed by me and negative. 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 Sleep apnea ID 2 Past Surgical History AV fistula to right upper extremity, Vas-Cath to the right chest. Patient had a screws placed and removed in the left knee Bilateral cataract surgery. Reported Medications Reported Meds & Active Scripts Active Reported Novolog Inj (Insulin Aspart) 1,000 Unit/10 Ml Vial 0 SQ DIRECTED Sliding Scale as directed. Percocet (Oxycodone-Acetaminophen) 5-325 mg Tab 1 Tab PO Q4H PRN Mirtazapine 15 Mg Tab 15 Mg PO HS Vitamin D-400 (Cholecalciferol) 400 Unit Tab 800 Units PO BID Vitamin B-12 (Cyanocobalamin) 500 Mcg Tab 500 Mcg PO DAILY Propranolol (Propranolol HCl) 20 Mg Tab 20 Mg PO BID Protopic Topical 0.03% (Tacrolimus Topical 0.03%) 0.03 % Oint 1 Applic TOPICAL BID Lisinopril 10 Mg Tab 10 Mg PO BID ON HOLD Omeprazole 20 Mg Tab 20 Mg PO BID Atorvastatin (Atorvastatin Calcium) 40 Mg Tab 40 Mg PO HS Allergies: Coded Allergies: cetirizine (Unverified Allergy, Severe, RASH, 01/14/17) shellfish derived (Unverified Allergy, Intermediate, 01/14/17) fish and shellfish *MDRO Multi-Drug Resistant Organism (Verified Allergy, Unknown, 01/09/16) MRSA 2006, 2012 & 2013 Active Ordered Medications Current Medications Medications (Trade) Dose Ordered Sig/Damir Route Start Time Stop Time Status Last Admin (Estrellita-Colace) 1 tab BID PO 03/03/17 21:00 (Milk Of Magnesia Liq) 30 ml Q12H PRN PO 03/03/17 10:15 (Senokot) 17.2 mg Q12H PRN PO 03/03/17 10:15 (Dulcolax Supp) 10 mg DAILY PRN RECTAL 03/03/17 10:15 (Lactulose Liq) 30 ml DAILY PRN PO 03/03/17 10:15 Ciprofloxacin/ Dextrose 200 ml @ 200 mls/hr Q24H IV 03/03/17 11:00 Potassium Chloride/Dextrose/ Sod Cl 1,000 ml @ 175 mls/hr Q5H43M IV 03/03/17 17:00 03/03/17 17:00 (NS Flush) 2 ml UNSCH PRN IVF 03/03/17 16:30 (NS Flush) 2 ml BID IVF 03/03/17 21:00 Cefazolin Sodium 1000 mg/Sodium Chloride 100 ml @ 200 mls/hr Q8H IV 03/04/17 00:00 03/04/17 16:29 Metronidazole 100 ml @ 200 mls/hr Q8H IV 03/03/17 22:00 03/04/17 14:29 ([place] 5-325 Mg) 1 tab Q4H PRN PO 03/03/17 16:30 ([place] 5-325 Mg) 2 tab Q4H PRN PO 03/03/17 16:30 (Tylenol) 650 mg Q4H PRN PO 03/03/17 16:30 (Protonix Inj) 40 mg DAILY IVP 03/04/17 09:00 (Protonix) 40 mg DAILY PO 03/04/17 09:00 (Zofran Inj) 4 mg Q6H PRN IV 03/03/17 16:30 (Vasotec Inj) 1.25 mg Q4H PRN IV 03/03/17 16:30 (Vasotec Inj) 2.5 mg Q6H PRN IV 03/03/17 16:30 (Chloraseptic Jorge) 1 lozenge UNSCH PRN BUCCAL 03/03/17 16:30 Potassium Chloride 100 ml @ 50 mls/hr UNSCH PRN IV 03/03/17 16:30 Potassium Chloride 100 ml @ 25 mls/hr UNSCH PRN IV 03/03/17 16:30 (Narcan Inj) 0.4 mg UNSCH PRN IV 03/03/17 16:30 (Morphine 1 Mg/ ml PHOTO MASK INSPECTOR) 30 mg UNSCH IV 03/03/17 16:30 03/03/17 17:17 PHOTO MASK INSPECTOR Dosage Infused (Pha) 1 Q8HR .XX 03/03/17 16:30 Family History Patient states his mother from a cancer, but he cannot recall what the primary origin of the cancer was. Social History The patient states his smokes half a pack per day. Denies alcohol or illicit substance use. Physical Exam Vital Signs Vital Signs Date Time Temp Pulse Resp B/P (MAP) Pulse Ox O2 Delivery O2 Flow Rate FiO2 03/03/17 17:17 16 03/03/17 12:00 98.4 73 16 97/55 (69) 97 03/03/17 11:25 03/03/17 11:14 99.5 83 18 110/60 (77) 98 03/03/17 05:53 95 18 125/66 (85) 99 03/03/17 05:36 99.2 110 18 125/74 (91) 97 Physical Exam GENERAL: This is a well-nourished, well-developed patient, in no apparent distress. SKIN: No rashes, ecchymoses or lesions. Cool and dry. HEAD: Atraumatic. Normocephalic. No temporal or scalp tenderness. EYES: Pupils equal round and reactive. Extraocular motions intact. No scleral icterus. No injection or drainage. ENT: Nose without bleeding, purulent drainage or septal hematoma. Throat without erythema, tonsillar hypertrophy or exudate. Uvula midline. Airway patent. Patient has several teeth missing. NECK: Trachea midline. No JVD or lymphadenopathy. Supple, nontender, no meningeal signs. CARDIOVASCULAR: Regular rate and rhythm without murmurs, gallops, or rubs. RESPIRATORY: Clear to auscultation. Breath sounds equal bilaterally. No wheezes , rales, or rhonchi. GASTROINTESTINAL: Abdomen soft, non-tender, nondistended. No hepato-splenomegaly , or palpable masses. No guarding. MUSCULOSKELETAL: Extremities without clubbing, cyanosis, or edema. No joint tenderness, effusion, or edema noted. No calf tenderness. Negative Homans sign bilaterally. NEUROLOGICAL: Awake and alert. Cranial nerves II through XII intact. Motor and sensory grossly within normal limits. Five out of 5 muscle strength in all muscle groups. Normal speech. There is a dressing covering the incision and drainage in the left buttock which has some serous drainage. Laboratory Laboratory Tests Test 03/03/17 06:15 03/03/17 10:05 White Blood Count 18.8 Red Blood Count 4.21 Hemoglobin 12.6 Hematocrit 38.0 Mean Corpuscular Volume 90.3 Mean Corpuscular Hemoglobin 29.9 Mean Corpuscular Hemoglobin Concent 33.1 Red Cell Distribution Width 14.1 Platelet Count 216 Mean Platelet Volume 7.8 Neutrophils (%) (Auto) 69.4 Lymphocytes (%) (Auto) 12.4 Monocytes (%) (Auto) 17.6 Eosinophils (%) (Auto) 0.3 Basophils (%) (Auto) 0.3 Neutrophils # (Auto) 13.0 Lymphocytes # (Auto) 2.3 Monocytes # (Auto) 3.3 Eosinophils # (Auto) 0.1 Basophils # (Auto) 0.1 CBC Comment AUTO DIFF Differential Comment AUTO DIFF CONFIRMED Blood Urea Nitrogen 25 Creatinine 3.14 Random Glucose 149 Calcium Level 8.3 Sodium Level 125 Potassium Level 4.9 Chloride Level 96 Carbon Dioxide Level 17.6 Anion Gap 11 Estimat Glomerular Filtration Rate 25 Lactic Acid Level 3.5 Prothrombin Time 16.7 Prothromb Time International Ratio 1.5 Activated Partial Thromboplast Time 44.4 Date/Time Source Procedure Growth Status 03/03/17 06:15 Blood Peripheral Aerobic Blood Culture Pending Received 03/03/17 06:15 Blood Peripheral Anaerobic Blood Culture Pending Received Result Diagram: 03/03/17 0615 03/03/17 0615 Imaging Last Impressions Pelvis CT 03/03/17 0000 Signed Impressions: Service Date/Time: Friday, March 03, 2017 07:06 - CONCLUSION: 1. Bilateral perirectal abscess these seen within the posterior soft tissue. The one of the left is larger measuring 6.2 x 7.0 cm. 2. Small amount of pelvic ascites. 3. Air in the urinary bladder to be iatrogenic versus less likely infection or fistula formation. Cecil Tavares MD Reviewed by me. Septic Shock Reassessment Heart: Regular rate and rhythm Lungs: Clear Skin: Warm Peripheral Pulses: Bounding Right Radial Bounding Left Radial Capillary Refill: <2 seconds Caprini VTE Risk Assessment Caprini VTE Risk Assessment: No/Low Risk (score <= 1) Caprini Risk Assessment Model Point Value = 1 Point Value = 2 Point Value = 3 Point Value = 5 Age 41-60 Minor surgery BMI > 25 kg/m2 Swollen legs Varicose veins or History of unexplained or recurrent spontaneous Oral contraceptives or hormone replacement Sepsis (< 1 month) Serious lung disease, including pneumonia (< 1 month) Abnormal pulmonary function Acute myocardial infarction Congestive heart failure (< 1 month) History of inflammatory bowel disease Medical patient at bed rest Age 61-74 Arthroscopic surgery Major open surgery (> 45 min) Laparoscopic surgery (> 45 min) Malignancy Confined to bed (> 72 hours) Immobilizing plaster cast Central venous access Age >= 75 History of VTE Family history of VTE Factor V Leiden Prothrombin [id number] Lupus anticoagulant Anticardiolipin antibodies Elevated serum homocysteine Heparin-induced thrombocytopenia Other congenital or acquired thrombophilia Stroke (< 1 month) Elective arthroplasty Hip, pelvis, or leg fracture Acute spinal cord injury (< 1 month) Prophylaxis Regimen Total Risk Factor Score Risk Level Prophylaxis Regimen 0-1 Low Early ambulation 2 Moderate Order ONE of the following: *Sequential Compression Device (SCD) *Heparin 5000 units SQ BID 3-4 Higher Order ONE of the following medications: *Heparin 5000 units SQ TID *Enoxaparin/Lovenox 40 mg SQ daily (WT < 150 kg, CrCl > 30 mL/min) *Enoxaparin/Lovenox 30 mg SQ daily (WT < 150 kg, CrCl > 10-29 mL/min) *Enoxaparin/Lovenox 30 mg SQ BID (WT < 150 kg, CrCl > 30 mL/min) AND/OR *Sequential Compression Device (SCD) 5 or more Highest Order ONE of the following medications: *Heparin 5000 units SQ TID (Preferred with Epidurals) *Enoxaparin/Lovenox 40 mg SQ daily (WT < 150 kg, CrCl > 30 mL/min) *Enoxaparin/Lovenox 30 mg SQ daily (WT < 150 kg, CrCl > 10-29 mL/min) *Enoxaparin/Lovenox 30 mg SQ BID (WT < 150 kg, CrCl > 30 mL/min) AND *Sequential Compression Device (SCD) Assessment and Plan Problem List: (1) Severe sepsis ICD Code: A41.9 - Sepsis, unspecified organism; R65.20 - Severe sepsis without septic shock Status: Acute Plan: Severe sepsis present on admission patient with leukocytosis, tachycardia Patient is status post I&D by colorectal surgery. Admitted to the medical floor Placed the patient on IV ciprofloxacin and IV Flagyl, the patient was given IV clindamycin emergency department IV fluids Monitor vital signs and CBC (2) Left buttock abscess ICD Code: L02.31 - Abscess of left buttock Status: Acute Plan: As above. (3) Diabetes mellitus ICD Code: E11.9 - Type 2 diabetes mellitus without complications Status: Chronic Plan: I will place the patient on SSI with insulin NovoLog and monitor Accu- Cheks per Blood sugar seems to be stable. (4) Hypertension ICD Code: I10 - Essential (primary) hypertension Status: Chronic Plan: BP stable. Keep off antihypertensive medications for now. Will resume his blood pressure started trending up. (5) Hyperlipidemia ICD Code: E78.5 - Hyperlipidemia Status: Chronic Plan: Continue statin (6) Hyponatremia ICD Code: E87.1 - Hypo-osmolality and hyponatremia Plan: Likely due to hypovolemic hyponatremia. Started on IV fluids in the form of normal saline and monitor BMP. (7) VIJAYA (acute kidney injury) ICD Code: N17.9 - Acute kidney failure, unspecified Plan: Likely prerenal azotemia. Will give IV fluids and monitor BMP. (8) CKD (chronic kidney disease), stage III ICD Code: N18.3 - Chronic kidney disease, stage 3 (moderate) Plan: Upper review of records the patient has a paced and creatinine of 2.3. Creatinine on admission is 3.14, suspect prerenal azotemia from dehydration, sepsis, possible ATN. I will give IV fluids and monitor BUN/creatinine, avoid nephrotoxins, monitor strict I's and O's. Assessment and Plan GI prophylaxis: Continue PPI that the patient second for GERD at home. DVT prophylaxis: Patient is low risk, will place on SCDs. Code Status Full code Discussed Condition With Patient, ED physician. Physician Certification 2 Midnight Certification Type: Admission for Inpatient Services Order for Inpatient Services The services are ordered in accordance with Medicare regulations or non- Medicare payer requirements, as applicable. In the case of services not specified as inpatient-only, they are appropriately provided as inpatient services in accordance with the 2-midnight benchmark. Estimated LOS (days): 2 days is the estimated time the patient will need to remain in the hospital, assuming treatment plan goals are met and no additional complications. Post-Hospital Plan: Not yet determined Problem Qualifiers (1) Diabetes mellitus: (2) Hypertension: Qualified Codes: I10 - Essential (primary) hypertension (3) Hyperlipidemia: Qualified Codes: E78.5 - Hyperlipidemia, unspecified Tre Aleman MD Mar 03, 2017 17:28
[2017-03-03] MEDS: CIPROFLOXACIN 400 MG PREMIX 200 ML IV SCH (18:10)
[2017-03-03] MEDS ORDERED: DO NOT ADM ANY ANTICOAGULANT DRUGS PRN (18:30)
[2017-03-03] MEDS: ATORVASTATIN 40 MG TAB PO SCH (20:42)
[2017-03-03] MEDS: PROPRANOLOL HCL 20 MG TAB PO SCH (20:42)
[2017-03-03] MEDS: MIRTAZAPINE 15 MG TAB PO SCH (20:42)
[2017-03-03] MEDS: DOCUSATE SODIUM 50 MG/SENNA 8.6 MG TAB PO SCH (20:43)
[2017-03-03] MEDS: SODIUM CHLORIDE 0.9% FLUSH 5 ML FLUSH IVF SCH (20:55)
[2017-03-03] MEDS ORDERED: NON-FORMULARY DRUG (Omeprazole 20 MG) PO SCH (21:00)
[2017-03-03] MEDS ORDERED: TACROLIMUS TOPICAL SCH (21:00)
[2017-03-03] MEDS ORDERED: SODIUM CHLORIDE 0.9% FLUSH 10 ML FLUSH IV FLUSH SCH (21:00)
[2017-03-03] MEDS ORDERED: TACROLIMUS 0.03% TOPICAL SCH (21:00)
[2017-03-03] MEDS: metroNIDAZOLE 500 MG INJ 100 ML IV SCH (23:30)
[2017-03-04] VITALS (7 sets, daily range): BP systolic 95–112; BP diastolic 58–72; PULSE 75–83; RESP 14–19; TEMP 97.1–99.5; O2SAT 94–97
[2017-03-04] MEDS: metroNIDAZOLE 500 MG INJ 100 ML IV SCH ×2 (05:24→16:15)
[2017-03-04] MEDS: PCA - TOTAL MG MORPHINE DELIVERED PER SHIFT SCH ×3 (05:27→22:08)
[2017-03-04 07:55] LABS: AUTOMATED NEUTROPHIL # 10.6 TH/MM3 (1.8-7.7); BASOPHIL # 0.1 TH/MM3 (0-0.2); BASOPHIL % 0.3 % (0.0-2.0); EOSINOPHIL # 0.1 TH/MM3 (0-0.4); EOSINOPHIL % 0.7 % (0.0-4.0); HEMATOCRIT 27.4 % (39.0-51.0); LYMPH % 16.7 % (9.0-44.0); LYMPHOCYTE # 2.7 TH/MM3 (1.0-4.8); MEAN CELL VOLUME 89.5 FL (80.0-100.0); MEAN CORPUSCULAR HEMOGLOBIN 29.7 PG (27.0-34.0); MEAN CORPUSCULAR HGB CONC 33.2 % (32.0-36.0); MONO % 17.5 % (0.0-8.0); NEUT % 64.8 % (16.0-70.0); PLATELET COUNT 182 TH/MM3 (150-450); RED BLOOD COUNT 3.06 MIL/MM3 (4.50-5.90); WHITE BLOOD COUNT 16.4 TH/MM3 (4.0-11.0)
[2017-03-04 08:06] LABS: HEMO FLAGS AUTO DIFF
--- NOTE | 2017-03-04 08:12 | EKG ---
Date Performed: 03/03/2017 Time Performed: 14:48:45 PTAGE: 56 years EKG: Sinus rhythm LOW QRS VOLTAGE IN EXTREMITY LEADS BORDERLINE ECG Compared to prior tracing no significant change PREVIOUS TRACING : 06/23/2016 17.08 DOCTOR: Doris Prather Interpretating Date/Time 03/04/2017 08:10:47
[2017-03-04 08:31] LABS: BICARBONATE 16.8 MEQ/L (21.0-32.0); CALCIUM-PROTEIN CORRECTED 8.1 MG/DL (8.5-10.1); POTASSIUM 5.1 MEQ/L (3.5-5.1); TOTAL BILIRUBIN ADULT 1.3 MG/DL (0.2-1.0)
[2017-03-04] MEDS ORDERED: D5-NS + KCL 20 MEQ INJ 1,000 ML IV SCH (08:45)
[2017-03-04] MEDS: D5-NS + KCL 20 MEQ INJ 1,000 ML IV SCH ×2 (08:52→12:10)
[2017-03-04] MEDS: PANTOPRAZOLE SODIUM 40 MG VIAL IVP SCH (08:54)
[2017-03-04] MEDS: PROPRANOLOL HCL 20 MG TAB PO SCH ×2 (08:54→21:00)
[2017-03-04] MEDS: PANTOPRAZOLE SOD 40 MG DELAYED RELEASE TAB PO SCH (08:54)
[2017-03-04 08:55] LABS: BANDS 17 % (0-6); DOHLE BODIES PRESENT (NONE SEEN); NEUTROPHIL # MANUAL DIFF 14.1 TH/MM3 (1.8-7.7); POLYS (SEG NEUTROPHILS) 69 % (16-70); WBC DIFF SAMPLE 100
[2017-03-04] MEDS: DOCUSATE SODIUM 50 MG/SENNA 8.6 MG TAB PO SCH ×2 (08:55→22:08)
[2017-03-04 08:56] LABS: CRENATED RBCS 1+ (NORMAL)
[2017-03-04 08:57] LABS: SCAN/DIFF FINAL DIFF MANUAL
[2017-03-04] MEDS: SODIUM CHLORIDE 0.9% FLUSH 5 ML FLUSH IVF SCH ×2 (09:00→22:10)
[2017-03-04] MEDS ORDERED: INFLUENZA VIRUS VACCINE (QUADRIVALENT) 0.5 ML SYR IM ONE (10:00)
[2017-03-04] MEDS ORDERED: PNEUMOCOCCAL POLYVALENT INJ 25 MCG/0.5 ML SYR IM ONE (10:00)
[2017-03-04] MEDS: CIPROFLOXACIN 400 MG PREMIX 200 ML IV SCH (10:19)
[2017-03-04] MEDS ORDERED: SODIUM CHLOR 0.9% 1000 ML INJ 1,000 ML IV SCH (15:30)
[2017-03-04] MEDS: VANCOMYCIN INJ 1,000 MG in SODIUM CHLOR 0.9% 250 ML INJ 250 ML IV SCH (16:00)
[2017-03-04] MEDS ORDERED: PIPERACIL-TAZO 2.25 GM PREMIX 50 ML IV SCH (16:00)
[2017-03-04] MEDS: PIPERACIL-TAZO 2.25 GM PREMIX 50 ML IV SCH (17:00)
--- NOTE | 2017-03-04 18:09 | HHI.PR ---
Subjective Remarks C/R Surg POD # 1 afebrile, VSS little appet UO good Objective - Vital Signs Date Time Temp Pulse Resp B/P (MAP) Pulse Ox O2 Delivery O2 Flow Rate FiO2 03/04/17 14:00 18 03/04/17 12:00 98.2 75 108/72 (84) 95 03/03/17 17:30 Room Air Result Diagram: 03/04/17 0704 03/04/17 0704 Objective Remarks PE alert Abd - soft, wound clean, irrigated, repacked A/P Assessment and Plan Imp: stable post-op OOB irrigate wounds, repack reg diet hep lock IVF Howie Wong MD Mar 04, 2017 18:09
[2017-03-04] MEDS ORDERED: RESP: ALBUTEROL 2.5 MG/IPRATROPIUM 0.5 MG NEB (PRN) NEB (18:15)
[2017-03-04] MEDS ORDERED: RESP: ALBUTEROL 2.5 MG/IPRATROPIUM 0.5 MG NEB (SCH) NEB ONE (18:15)
[2017-03-04] MEDS: RESP: ALBUTEROL 2.5 MG/IPRATROPIUM 0.5 MG NEB (SCH) NEB (20:00)
--- NOTE | 2017-03-04 20:26 | RADRPT ---
EXAM DATE/TIME: 03/04/2017 19:36 [facility] COMPARISON: CHEST SINGLE AP, June 23, 2016, 17:13. INDICATIONS : Wheezing. MEDICAL HISTORY : Cardiovascular disease. Hypertension. Hepatitis C. SURGICAL HISTORY : None. ENCOUNTER: Subsequent ACUITY: 2 weeks PAIN SCORE: 0/10 LOCATION: Bilateral chest FINDINGS: A single view of the chest demonstrates the lungs to be symmetrically aerated without evidence of mas s, infiltrate or effusion. The cardiomediastinal contours are unremarkable. Osseous structures are intact. CONCLUSION: No acute disease. Domingo Nelson MD on March 04, 2017 at 20:25 Board Certified Radiologist. This report was verified electronically.
[2017-03-04] MEDS: INSULIN DETEMIR 100 UNITS/ML VIAL SQ SCH (22:08)
[2017-03-04] MEDS: MIRTAZAPINE 15 MG TAB PO SCH (22:08)
[2017-03-04] MEDS: ATORVASTATIN 40 MG TAB PO SCH (22:08)
[2017-03-04] MEDS: predniSONE 50 MG TAB PO SCH (22:10)
--- NOTE | 2017-03-04 23:13 | HHI.PR ---
Subjective Remarks late entry - patient seen at 18:[address] Wong at bedside changing packing of wound patient c/o pain in buttocks denies fevers/chills denies cp/sob Objective Vitals Vital Signs Date Time Temp Pulse Resp B/P (MAP) Pulse Ox O2 Delivery O2 Flow Rate FiO2 03/04/17 22:08 18 03/04/17 16:00 97.1 82 14 112/65 (81) 94 03/04/17 14:00 18 03/04/17 12:00 98.2 75 16 108/72 (84) 95 03/04/17 08:00 98.9 80 16 105/65 (78) 97 03/04/17 05:27 18 03/04/17 04:35 99.5 83 17 95/72 (80) 96 03/04/17 00:20 99.3 81 19 102/68 (79) 97 03/04/17 00:00 80 03/03/17 23:34 17 I/O 03/03/17 03/03/17 03/03/17 03/04/17 03/04/17 03/04/17 07:00 15:00 23:00 07:00 15:00 23:00 Intake Total 1106 ml 400 ml 25 ml 100 ml 1260 ml Output Total 225 ml 450 ml Balance 1106 ml 175 ml -425 ml 100 ml 1260 ml Intake Oral 25 ml 960 ml IV Total 1106 ml 100 ml 300 ml Other 400 ml Output Urine Total 150 ml 450 ml Estimated Blood Loss 75 ml # Voids 4 # Bowel Movements 1 Result Diagram: 03/04/17 0704 03/04/17 0704 Imaging Last Impressions Pelvis CT 03/03/17 0000 Signed Impressions: Service Date/Time: Friday, March 03, 2017 07:06 - CONCLUSION: 1. Bilateral perirectal abscess these seen within the posterior soft tissue. The one of the left is larger measuring 6.2 x 7.0 cm. 2. Small amount of pelvic ascites. 3. Air in the urinary bladder to be iatrogenic versus less likely infection or fistula formation. Cecil Tavares MD Objective Remarks AAox3 BL expiratory wheezing on lung exam S1S2 RRR, no MRG Wounds being packed - no purulent discharge observed abdomen is soft, non tender, non distended Procedures Incision and drainage of perirectal abscesses under anesthesia. Medications and IVs Current Medications Medications (Trade) Dose Ordered Sig/Damir Route Start Time Stop Time Status Last Admin (Estrellita-Colace) 1 tab BID PO 03/03/17 21:00 03/04/17 22:08 (Milk Of Magnesia Liq) 30 ml Q12H PRN PO 03/03/17 10:15 (Senokot) 17.2 mg Q12H PRN PO 03/03/17 10:15 (Lactulose Liq) 30 ml DAILY PRN PO 03/03/17 10:15 (NS Flush) 2 ml UNSCH PRN IVF 03/03/17 16:30 (NS Flush) 2 ml BID IVF 03/03/17 21:00 ([place] 5-325 Mg) 1 tab Q4H PRN PO 03/03/17 16:30 ([place] 5-325 Mg) 2 tab Q4H PRN PO 03/03/17 16:30 (Tylenol) 650 mg Q4H PRN PO 03/03/17 16:30 (Protonix Inj) 40 mg DAILY IVP 03/04/17 09:00 03/04/17 08:54 (Protonix) 40 mg DAILY PO 03/04/17 09:00 03/04/17 08:54 (Zofran Inj) 4 mg Q6H PRN IV 03/03/17 16:30 (Vasotec Inj) 1.25 mg Q4H PRN IV 03/03/17 16:30 (Vasotec Inj) 2.5 mg Q6H PRN IV 03/03/17 16:30 (Chloraseptic Jorge) 1 lozenge UNSCH PRN BUCCAL 03/03/17 16:30 Potassium Chloride 100 ml @ 50 mls/hr UNSCH PRN IV 03/03/17 16:30 Potassium Chloride 100 ml @ 25 mls/hr UNSCH PRN IV 03/03/17 16:30 (Narcan Inj) 0.4 mg UNSCH PRN IV 03/03/17 16:30 (Morphine 1 Mg/ ml [employer]) 30 mg UNSCH IV 03/03/17 16:30 03/03/17 17:17 [employer] Dosage Infused (Pha) 1 Q8HR .XX 03/03/17 16:30 03/04/17 22:08 (Lipitor) 40 mg HS PO 03/03/17 21:00 03/04/17 22:08 (Remeron) 15 mg HS PO 03/03/17 21:00 03/04/17 22:08 (Inderal) 20 mg BID PO 03/03/17 21:00 03/04/17 08:54 Patient Own Medication PT OWN MED: PROTOPIC(TACROLIMIS) CREAM APPLY TOP BID BID TOPICAL 03/03/17 21:00 Future Hold Vancomycin HCl 1000 mg/Sodium Chloride 250 ml @ 250 mls/hr Q12H IV 03/04/17 16:00 Sodium Chloride 1,000 ml @ 100 mls/hr Q10H IV 03/04/17 15:30 (Levemir Inj) 5 units Q12HR SQ 03/04/17 21:00 03/04/17 22:08 Piperacillin Sod/ Tazobactam Sod 50 ml @ 100 mls/hr Q8H IV 03/04/17 17:00 (Duoneb Neb) 1 ampule Q4HR WHILE AWAKE NEB NEB 03/04/17 20:00 03/04/17 20:00 (Duoneb Neb) 1 ampule Q2HR NEB PRN NEB 03/04/17 18:15 (Deltasone) 50 mg DAILY PO 03/04/17 18:15 03/04/17 22:10 Urinary Catheter: No Vascular Central Line Catheter: No A/P Problem List: (1) Severe sepsis ICD Code: A41.9 - Sepsis, unspecified organism; R65.20 - Severe sepsis without septic shock Status: Acute Plan: Severe sepsis present on admission patient with leukocytosis, tachycardia Patient is status post I&D by colorectal surgery. Admitted to the medical floor Placed the patient on IV ciprofloxacin and IV Flagyl, the patient was given IV clindamycin emergency department IV fluids Monitor vital signs and CBC 03/04 sepsis improving with improving leukocytosis. Blood cultures growing gram positive cocci in pairs and clusters. Wound cultures growing gram negative rods. Consult ID, Will DC Ciprofloxacin and Cefazolin and start IV zosyn and Vancomycin. (2) Left buttock abscess ICD Code: L02.31 - Abscess of left buttock Status: Acute Plan: As above. Wound care as per Dr Wong. (3) Diabetes mellitus ICD Code: E11.9 - Type 2 diabetes mellitus without complications Status: Chronic Plan: Blood sugars elevated and uncontrolled. 03/04 Dc IV fluids with D5. Will start on Levemir and continue SSI with insulin Novolog. (4) Hypertension ICD Code: I10 - Essential (primary) hypertension Status: Chronic Plan: BP stable. Keep off antihypertensive medications for now. Will resume his blood pressure started trending up. (5) Hyperlipidemia ICD Code: E78.5 - Hyperlipidemia Status: Chronic Plan: Continue statin (6) Hyponatremia ICD Code: E87.1 - Hypo-osmolality and hyponatremia Plan: Likely due to hypovolemic hyponatremia. Started on IV fluids in the form of normal saline and monitor BMP. 10 Sodium is improving and trending up from 125 to 130. (7) VIJAYA (acute kidney injury) ICD Code: N17.9 - Acute kidney failure, unspecified Plan: Likely prerenal azotemia. Creatinine trending down. Continue IV fluids and monitor BMP. (8) CKD (chronic kidney disease), stage III ICD Code: N18.3 - Chronic kidney disease, stage 3 (moderate) Plan: Upper review of records the patient has a paced and creatinine of 2.3. Creatinine on admission is 3.14, suspect prerenal azotemia from dehydration, sepsis, possible ATN. I will give IV fluids and monitor BUN/creatinine, avoid nephrotoxins, monitor strict I's and O's. (9) Hypocalcemia ICD Code: E83.51 - Hypocalcemia Plan: Replace with IV Calcium Chloride. Monitor Calcium levels. Problem Qualifiers (1) Diabetes mellitus: Qualified Codes: E11.8 - Type 2 diabetes mellitus with unspecified complications (2) Hypertension: Qualified Codes: I10 - Essential (primary) hypertension (3) Hyperlipidemia: Qualified Codes: E78.5 - Hyperlipidemia, unspecified Tre Aleman MD Mar 04, 2017 23:13
[2017-03-05] VITALS (7 sets, daily range): BP systolic 89–115; BP diastolic 51–78; PULSE 65–91; RESP 17–20; TEMP 96–98.2; O2SAT 95–98
[2017-03-05] MEDS: PIPERACIL-TAZO 2.25 GM PREMIX 50 ML IV SCH ×2 (00:27→09:00)
[2017-03-05] MEDS: VANCOMYCIN INJ 1,000 MG in SODIUM CHLOR 0.9% 250 ML INJ 250 ML IV SCH (03:24)
[2017-03-05] MEDS: PCA - TOTAL MG MORPHINE DELIVERED PER SHIFT SCH (06:00)
[2017-03-05] MEDS: RESP: ALBUTEROL 2.5 MG/IPRATROPIUM 0.5 MG NEB (SCH) NEB ×4 (07:56→21:02)
[2017-03-05 08:05] LABS: AUTOMATED NEUTROPHIL # 15.5 TH/MM3 (1.8-7.7); BASOPHIL % 0.1 % (0.0-2.0); HEMATOCRIT 29.5 % (39.0-51.0); HEMO FLAGS DIFF FINAL; LYMPH % 2.9 % (9.0-44.0); LYMPHOCYTE # 0.5 TH/MM3 (1.0-4.8); MEAN CELL VOLUME 90.4 FL (80.0-100.0); MEAN CORPUSCULAR HEMOGLOBIN 29.6 PG (27.0-34.0); MEAN CORPUSCULAR HGB CONC 32.8 % (32.0-36.0); MONO % 2.1 % (0.0-8.0); NEUT % 94.9 % (16.0-70.0); PLATELET COUNT 195 TH/MM3 (150-450); RED BLOOD COUNT 3.26 MIL/MM3 (4.50-5.90); RED CELL DISTRIBUTION WIDTH 14.1 % (11.6-17.2); WHITE BLOOD COUNT 16.3 TH/MM3 (4.0-11.0)
[2017-03-05 08:34] LABS: BICARBONATE 15.7 MEQ/L (21.0-32.0)
[2017-03-05 08:37] LABS: CALCIUM-PROTEIN CORRECTED 8.1 MG/DL (8.5-10.1); POTASSIUM 6.6 MEQ/L (3.5-5.1); TOTAL BILIRUBIN ADULT 1.2 MG/DL (0.2-1.0)
[2017-03-05] MEDS: SODIUM CHLORIDE 0.9% FLUSH 5 ML FLUSH IVF SCH ×2 (08:58→21:31)
[2017-03-05] MEDS: predniSONE 50 MG TAB PO SCH (08:59)
[2017-03-05] MEDS: PANTOPRAZOLE SODIUM 40 MG VIAL IVP SCH (08:59)
[2017-03-05] MEDS: PANTOPRAZOLE SOD 40 MG DELAYED RELEASE TAB PO SCH (08:59)
[2017-03-05] MEDS: DOCUSATE SODIUM 50 MG/SENNA 8.6 MG TAB PO SCH ×2 (09:00→21:28)
[2017-03-05] MEDS: PROPRANOLOL HCL 20 MG TAB PO SCH ×2 (09:00→21:24)
[2017-03-05] MEDS: INSULIN DETEMIR 100 UNITS/ML VIAL SQ SCH ×2 (09:00→21:34)
--- NOTE | 2017-03-05 09:53 | PD.CONS ---
History of Present Illness Service Infectious disease Consult Requested By Dr Mills Reason for Consult Evaluate patient with positive blood culture, perirectal abscess Primary Care Physician Domingo Batres, Diagnoses: History of Present Illness Patient seen and examined. Records reviewed. Patient is a 56-year-old male, presented to the hospital for further evaluation of worsening pain in his buttocks. Patient stated his problems started about 2 weeks ago when he started having some problem with hemorrhoids. He felt several lumps and he's had previous problem with hemorrhoids.. Lately he noted a lump on his left buttock and it started getting worse. He saw his primary care doctor, and some workup was ordered, however patient couldn't stand the pain, so he presented to the hospital for further evaluation and treatment. He also had some vomiting. He had some subjective fevers, and some chills. He has not had any respiratory complaint, abdominal pain, diarrhea or constipation. He also denies any urinary complaints. Patient since admission has not had any fever. His WBC is elevated. Colorectal surgery saw the patient , and patient underwent surgery for IND of buttock abscess, perirectal abscess. He had 2 blood cultures done on admission, and 1 blood culture is growing coag -negative staph. Culture from surgery has Escherichia coli, AFB and fungal cultures are still pending. Patient still complains of pain in the left buttock mostly, but it's better compared to when he first presented. Infectious disease consultation has been requested to evaluate the patient. Review of Systems Constitutional: DENIES: Fever, Chills Eyes: DENIES: Eye pain Ears, nose, mouth, throat: DENIES: Nasal discharge, Oral lesions, Throat pain, Ear Pain, Running Nose Respiratory: DENIES: Cough, Shortness of breath Cardiovascular: DENIES: Chest pain Gastrointestinal: DENIES: Abdominal pain, Diarrhea, Nausea, Vomiting, Difficulty Swallowing Genitourinary: DENIES: Hematuria, Dysuria Musculoskeletal: DENIES: Joint pain, Joint Swelling Integumentary: DENIES: Rash Hematologic/lymphatic: DENIES: Bruising Immunologic/allergic: DENIES: Urticaria Neurologic: DENIES: Headache, Localized weakness Psychiatric: DENIES: Confusion, Hallucinations Past Family Social History Allergies: Coded Allergies: Penicillins (Verified Allergy, Severe, Throat closes up, 03/05/17) cetirizine (Unverified Allergy, Severe, RASH, 01/14/17) shellfish derived (Unverified Allergy, Intermediate, 01/14/17) fish and shellfish Past Medical History CAD Diabetes Hypertension Chronic kidney disease, was on HD at one point GERD Tobacco use Arthritis in shoulders back and neck. Sleep apnea [place] 2 hemorrhoids Past Surgical History AV fistula to right upper extremity, Vas-Cath to the right chest. Patient had a screws placed and removed in the left knee Bilateral cataract surgery. Reported Medications I attest that I obtained, updated or reviewed the home and current medications. Reported Meds & Active Scripts Active Reported Novolog Inj (Insulin Aspart) 1,000 Unit/10 Ml Vial 0 SQ DIRECTED Sliding Scale as directed. Percocet 5-325 mg Tab 1 Tab PO Q4H PRN Mirtazapine 15 Mg Tab 15 Mg PO HS Vitamin D-400 400 Unit Tab 800 Units PO BID Vitamin B-12 500 Mcg Tab 500 Mcg PO DAILY Propranolol 20 Mg Tab 20 Mg PO BID Protopic Topical 0.03% (Tacrolimus Topical 0.03%) 0.03 % Oint 1 Applic TOPICAL BID Lisinopril 10 Mg Tab 10 Mg PO BID Omeprazole 20 Mg Tab 20 Mg PO BID Atorvastatin 40 Mg Tab 40 Mg PO HS Active Ordered Medications Tylenol prn [place] prn Albuterol prn Lipitor Vasotec prn Levemir Lactulose prn Zosyn IV vancomycin IV MOM prn magnesium Morphine prn Zofran prn Protonix Potassium Prednisone Inderal Pericolace prn Senokot prn Na bicarb Family History Patient states his mother from a cancer Social History Smokes 1/2 ppd Denies ETOH abuse Denies illicit drugs Physical Exam Vital Signs Vital Signs Date Time Temp Pulse Resp B/P (MAP) Pulse Ox O2 Delivery O2 Flow Rate FiO2 03/05/17 08:00 96.0 65 18 89/55 (66) 95 03/05/17 07:58 98 21 03/05/17 06:00 18 03/05/17 04:30 98.2 77 18 95/51 (66) 95 03/05/17 00:35 97.9 77 17 101/60 (74) 97 03/04/17 22:08 18 03/04/17 20:00 97.9 76 18 101/58 (72) 95 03/04/17 16:00 97.1 82 14 112/65 (81) 94 03/04/17 14:00 18 03/04/17 12:00 98.2 75 16 108/72 (84) 95 Physical Exam GENERAL: Patient is a well-nourished, well-developed male, awake and alert, not in respiratory distress. SKIN: Warm and dry. No generalized rash, no ecchymoses and no evidence of embolic lesions. HEAD: Atraumatic. Normocephalic. No temporal wasting, or tenderness. EYES: Ada conjunctiva. No petechia or hemorrhage. Pupils equal, round and reactive to light. Extraocular movements full and intact. No scleral icterus. No injection or drainage. EARS, NOSE AND THROAT: Nose without bleeding or purulent nasal discharge. No sinus tenderness. Mucous membranes pink and moist. He is edentulous, no oral lesions noted. NECK: Trachea midline. Supple and not tender, no meningeal signs CARDIOVASCULAR: Regular rate and rhythm. No murmurs, rubs or gallops heard RESPIRATORY: Clear to auscultation. Breath sounds equal bilaterally. No rales , wheezing or rhonchi ABDOMEN: Soft, non-tender, nondistended. Bowel sounds present and normoactive. No guarding. No rebound. No organomegaly. BACK: Has 2 incisions one in each buttock, with packing, the one on the L still with significant induration and erythema as well as tenderness EXTREMITIES: No clubbing, cyanosis, or edema. No joint effusion, has good ROM. No calf tenderness. Well perfused and warm. AVF R arm with good thrill NEUROLOGICAL: Awake and alert. Cranial nerves grossly intact. Motor grossly within normal limits. PSYCHIATRIC: Normal affect, calm and cooperative. LINE: No evidence of infection Laboratory Laboratory Tests Test 03/05/17 07:33 White Blood Count 16.3 Red Blood Count 3.26 Hemoglobin 9.7 Hematocrit 29.5 Mean Corpuscular Volume 90.4 Mean Corpuscular Hemoglobin 29.6 Mean Corpuscular Hemoglobin Concent 32.8 Red Cell Distribution Width 14.1 Platelet Count 195 Mean Platelet Volume 7.4 Neutrophils (%) (Auto) 94.9 Lymphocytes (%) (Auto) 2.9 Monocytes (%) (Auto) 2.1 Eosinophils (%) (Auto) 0.0 Basophils (%) (Auto) 0.1 Neutrophils # (Auto) 15.5 Lymphocytes # (Auto) 0.5 Monocytes # (Auto) 0.3 Eosinophils # (Auto) 0.0 Basophils # (Auto) 0.0 CBC Comment DIFF FINAL Differential Comment Blood Urea Nitrogen 21 Creatinine 2.71 Random Glucose 261 Total Protein 5.9 Albumin 1.6 Calcium Level 7.4 Phosphorus Level 2.7 Magnesium Level 2.0 Alkaline Phosphatase 122 Aspartate Amino Transf (AST/SGOT) 28 Alanine Aminotransferase (ALT/SGPT) 9 Total Bilirubin 1.2 Sodium Level 131 Potassium Level 6.6 Chloride Level 109 Carbon Dioxide Level 15.7 Anion Gap 6 Estimat Glomerular Filtration Rate 30 Protein Corrected Calcium 8.1 Date/Time Source Procedure Growth Status 03/03/17 06:15 Blood Peripheral Aerobic Blood Culture - Preliminary NO GROWTH IN 1 DAY Resulted 03/03/17 06:15 Blood Peripheral Anaerobic Blood Culture - Preliminary NO GROWTH IN 1 DAY Resulted 03/03/17 00:00 Wound Buttock Fungal Smear - Final NO FUNGAL ELEMENTS SEEN. Resulted 03/03/17 00:00 Wound Buttock Fungal Culture Pending Resulted Result Diagram: 03/05/17 0733 03/05/17 0733 Imaging RADIOLOGY STUDIES/FILMS REVIEWED Last Impressions Chest X-Ray 03/04/17 0000 Signed Impressions: Service Date/Time: Saturday, March 04, 2017 19:36 - CONCLUSION: No acute disease. Domingo Nelson MD Pelvis CT 03/03/17 0000 Signed Impressions: Service Date/Time: Friday, March 03, 2017 07:06 - CONCLUSION: 1. Bilateral perirectal abscess these seen within the posterior soft tissue. The one of the left is larger measuring 6.2 x 7.0 cm. 2. Small amount of pelvic ascites. 3. Air in the urinary bladder to be iatrogenic versus less likely infection or fistula formation. Cecil Tavares MD Assessment and Plan Assessment and Plan IMPRESSION [place] buttock abscess, rectal abscess S/P I and D One (+) BC C/W contamination CKD States severe reaction to PCN (throat swelling and difficulty breathing), has tolerated several doses of Zosyn RECOMMENDATION Change Abx to Levaquin and Flagyl No Rx needed for the (+) BC Wound care per CRS Monitor response to Rx Should be able to change to oral Abx when ready for D/C, and plan art least 14 days Abx on discharge I will follow along with you Thank you for this consultation Emi Henning MD Mar 05, 2017 09:53
[2017-03-05] MEDS ORDERED: DEXTROSE 50% IN WATER 50 ML VIAL(D50) IV PUSH PRN (10:00)
[2017-03-05] MEDS ORDERED: GLUCAGON 1 MG/ML VIAL OTHER PRN (10:00)
[2017-03-05] MEDS ORDERED: INSULIN HUMAN REGULAR 1,000 UNITS/10 ML VIAL IV PUSH ONE (10:00)
[2017-03-05] MEDS ORDERED: SODIUM CHLOR 0.9% 1000 ML INJ 1,000 ML IV ONE (10:00)
[2017-03-05] MEDS ORDERED: metroNIDAZOLE 500 MG INJ 100 ML IV SCH ×2 (11:00→17:00)
[2017-03-05] MEDS ORDERED: SODIUM BICARBONATE 8.4% INJ 75 MEQ in SODIUM CHLOR 0.45% 1000 ML INJ 1,000 ML IV SCH (11:00)
[2017-03-05] MEDS ORDERED: CALCIUM GLUCONATE INJ 2 GM in SODIUM CHLORIDE 0.9% INJ 100 ML IV ONE (11:00)
[2017-03-05] MEDS ORDERED: LEVOFLOXACIN 750 MG PREMIX INJ 150 ML IV SCH ×2 (11:00→16:00)
--- NOTE | 2017-03-05 11:14 | RADRPT ---
EXAM DATE/TIME: 03/05/2017 10:07 [place] COMPARISON: CT PELVIS W/O CONTRAST, March 03, 2017, 7:06. INDICATIONS : Increased BUN/creatinine. MEDICAL HISTORY : Myocardial infarction. Arthritis. Hepatitis C. Migraines. Coronary artery disease. Hyperlipidemia. HT N. COPD. GERD. Sleep apnea. Renal disease. Diabetes. MRSA. Anticoagulant therapy. SURGICAL HISTORY : Reattached retina. Dialysis. Orthopedic surgery, left knee. AV Fistula right arm. ENCOUNTER: Initial ACUITY: 1 day PAIN SCORE: 3/10 LOCATION: Bilateral flank MEASUREMENTS: RIGHT KIDNEY: 9.5 x 4.1 x 4.7 cm LEFT KIDNEY: 9.3 x 5.3 x 4.8 cm FINDINGS: RIGHT KIDNEY: Renal cortex is normal in thickness and echotexture. No hydronephrosis, stone, or mass. LEFT KIDNEY: Renal cortex is normal in thickness and echotexture. No hydronephrosis, stone, or mass. BLADDER: Decompressed with Rodgers catheter present. Free fluid is noted in the pelvis CONCLUSION: Kidneys are unremarkable. Bladder is decompressed with Rodgers. There is free fluid in the pelvis. Domingo Britton MD on March 05, 2017 at 11:11 Board Certified Radiologist. This report was verified electronically.
[2017-03-05] MEDS: INSULIN ASPART 1,000 UNITS/10 ML VIAL SQ SCH ×2 (12:00→18:31)
[2017-03-05] MEDS: INSULIN ASPART SUPPLEMENTAL SCALE SQ SCH ×3 (12:00→21:23)
--- NOTE | 2017-03-05 13:02 | HHI.PR ---
Subjective Remarks denies cp/sob denies fevers/chills Objective Vitals Vital Signs Date Time Temp Pulse Resp B/P (MAP) Pulse Ox O2 Delivery O2 Flow Rate FiO2 03/05/17 08:00 96.0 65 18 89/55 (66) 95 03/05/17 07:58 98 21 03/05/17 06:00 18 03/05/17 04:30 98.2 77 18 95/51 (66) 95 03/05/17 00:35 97.9 77 17 101/60 (74) 97 03/04/17 22:08 18 03/04/17 20:00 97.9 76 18 101/58 (72) 95 03/04/17 16:00 97.1 82 14 112/65 (81) 94 03/04/17 14:00 18 I/O 03/04/17 03/04/17 03/04/17 03/05/17 03/05/17 03/05/17 07:00 15:00 23:00 07:00 15:00 23:00 Intake Total 25 ml 100 ml 1260 ml 480 ml Output Total 450 ml 775 ml Balance -425 ml 100 ml 1260 ml -295 ml Intake Oral 25 ml 960 ml 480 ml IV Total 100 ml 300 ml Output Urine Total 450 ml 775 ml # Voids 4 1 # Bowel Movements 1 Result Diagram: 03/05/1773203/05/17 0733 Objective Remarks AAox3 BL expiratory wheezing on lung exam S1S2 RRR, no MRG Wounds being packed - no purulent discharge observed abdomen is soft, non tender, non distended Procedures Incision and drainage of perirectal abscesses under anesthesia. A/P Problem List: (1) Severe sepsis ICD Code: A41.9 - Sepsis, unspecified organism; R65.20 - Severe sepsis without septic shock Status: Acute Plan: Severe sepsis present on admission patient with leukocytosis, tachycardia Patient is status post I&D by colorectal surgery. Admitted to the medical floor Placed the patient on IV ciprofloxacin and IV Flagyl, the patient was given IV clindamycin emergency department IV fluids Monitor vital signs and CBC 03/05 Stable WBC. Blood cultures growing gram positive cocci in pairs and clusters. Wound cultures growing gram negative rods. Appreciate ID recommendations. Switched antibiotics to po levaquin and Flagyl. (2) Left buttock abscess ICD Code: L02.31 - Abscess of left buttock Status: Acute Plan: As above. sp Wound packed nby Dr Wong (3) Diabetes mellitus ICD Code: E11.9 - Type 2 diabetes mellitus without complications Status: Chronic Plan: Blood sugars elevated and uncontrolled. 03/05 Will start on Basal bolus therapy with insulin Levemir and insulin Novolog. (4) Hypertension ICD Code: I10 - Essential (primary) hypertension Status: Chronic Plan: BP stable. Antihypertensive medications not started since bp stable. Continue to monitor bp off antihypertensive medications. (5) Hyperlipidemia ICD Code: E78.5 - Hyperlipidemia Status: Chronic Plan: Continue statin (6) Hyponatremia ICD Code: E87.1 - Hypo-osmolality and hyponatremia Plan: Likely due to hypovolemic hyponatremia. Started on IV fluids in the form of normal saline and monitor BMP. 03/05 sodium slowly trending up. 134 today. (7) VIJAYA (acute kidney injury) ICD Code: N17.9 - Acute kidney failure, unspecified Plan: Likely prerenal azotemia. Creatinine trending down. Continue IV fluids and monitor BMP. 03/05 Continue to monitor bun/creatinine, will consult nephrology - renal us shows unremarkable kidneys. (8) CKD (chronic kidney disease), stage III ICD Code: N18.3 - Chronic kidney disease, stage 3 (moderate) Plan: Upper review of records the patient has a paced and creatinine of 2.3. Creatinine on admission is 3.14, suspect prerenal azotemia from dehydration, sepsis, possible ATN. I will give IV fluids and monitor BUN/creatinine, avoid nephrotoxins, monitor strict I's and O's. (9) Hypocalcemia ICD Code: E83.51 - Hypocalcemia Plan: Replace with IV Calcium Chloride. Monitor Calcium levels. 03/05 corrected calcium still low at 8.1. Will replace with IV calcium chloride (10) Hyperkalemia ICD Code: E87.5 - Hyperkalemia Status: Acute Plan: K 6.6. Likely due to VIJAYA and hyperglycemia. Ordered D5 + insulin IV. EKG reviewed by me shows normal sinus rythm and no changes consistent with hyperkalemia. Continue to monitor bmp (11) Metabolic acidosis ICD Code: E87.2 - Acidosis Plan: Due to VIJAYA 0 will start on 1/2 ns + sodium bicarbonate. Assessment and Plan Gi prophylaxis - PPI DVT prophylaxis - SCD's Problem Qualifiers (1) Diabetes mellitus: Qualified Codes: E11.8 - Type 2 diabetes mellitus with unspecified complications (2) Hypertension: Qualified Codes: I10 - Essential (primary) hypertension (3) Hyperlipidemia: Qualified Codes: E78.5 - Hyperlipidemia, unspecified Tre Aleman MD Mar 05, 2017 13:02
--- NOTE | 2017-03-05 13:54 | PD.CONS ---
HPI Service Nephrology Consult Requested By Dr. Mills Reason for Consult Chronic kidney disease Primary Care Physician Domingo Batres, DO History of Present Illness Patient is a 56-year-old male with history of chronic kidney disease and he had acute injury last year and developed renal failure requiring hemodialysis however he did recover his kidney functions came off the dialysis he has underlying hepatitis C, liver dysfunction, diabetes and hypertension, he was in the office a few months ago and his GFR was above 40, upon this admission he has acute kidney injury and his GFR was less and today he developed hyperkalemia as well, with a GFR of 30 he is passing urine creatinine is around 2.7, potassium was 6.6 this was treated with calcium, D50 insulin and he is on vancomycin and Zosyn for perirectal/buttock abscesses Review of Systems Constitutional: COMPLAINS OF: Fatigue Gastrointestinal: COMPLAINS OF: Nausea Musculoskeletal: COMPLAINS OF: Joint pain, Back pain Psychiatric: COMPLAINS OF: Anxiety Past Family Social History Allergies: Coded Allergies: Penicillins (Verified Allergy, Severe, Throat closes up, 03/05/17) cetirizine (Unverified Allergy, Severe, RASH, 01/14/17) shellfish derived (Unverified Allergy, Intermediate, 01/14/17) fish and shellfish Past Medical History Acute renal failure Chronic kidney disease Diabetes Hypertension Hepatitis C Chronic liver disease Past Surgical History He has AV fistula right arm Eye surgery Left knee surgery Reported Medications Reported Meds & Active Scripts Active Reported Novolog Inj (Insulin Aspart) 1,000 Unit/10 Ml Vial 0 SQ DIRECTED Sliding Scale as directed. Percocet (Oxycodone-Acetaminophen) 5-325 mg Tab 1 Tab PO Q4H PRN Mirtazapine 15 Mg Tab 15 Mg PO HS Vitamin D-400 (Cholecalciferol) 400 Unit Tab 800 Units PO BID Vitamin B-12 (Cyanocobalamin) 500 Mcg Tab 500 Mcg PO DAILY Propranolol (Propranolol HCl) 20 Mg Tab 20 Mg PO BID Protopic Topical 0.03% (Tacrolimus Topical 0.03%) 0.03 % Oint 1 Applic TOPICAL BID Lisinopril 10 Mg Tab 10 Mg PO BID ON HOLD Omeprazole 20 Mg Tab 20 Mg PO BID Atorvastatin (Atorvastatin Calcium) 40 Mg Tab 40 Mg PO HS Active Ordered Medications Current Medications Medications (Trade) Dose Ordered Sig/Damir Route Start Time Stop Time Status Last Admin (Estrellita-Colace) 1 tab BID PO 03/03/17 21:00 03/05/17 09:00 (Milk Of Magnesia Liq) 30 ml Q12H PRN PO 03/03/17 10:15 (Senokot) 17.2 mg Q12H PRN PO 03/03/17 10:15 (Lactulose Liq) 30 ml DAILY PRN PO 03/03/17 10:15 (NS Flush) 2 ml UNSCH PRN IVF 03/03/17 16:30 (NS Flush) 2 ml BID IVF 03/03/17 21:00 ([place] 5-325 Mg) 1 tab Q4H PRN PO 03/03/17 16:30 ([place] 5-325 Mg) 2 tab Q4H PRN PO 03/03/17 16:30 (Tylenol) 650 mg Q4H PRN PO 03/03/17 16:30 (Protonix Inj) 40 mg DAILY IVP 03/04/17 09:00 03/05/17 08:59 (Protonix) 40 mg DAILY PO 03/04/17 09:00 03/05/17 08:59 (Zofran Inj) 4 mg Q6H PRN IV 03/03/17 16:30 (Vasotec Inj) 1.25 mg Q4H PRN IV 03/03/17 16:30 (Vasotec Inj) 2.5 mg Q6H PRN IV 03/03/17 16:30 (Chloraseptic Jorge) 1 lozenge UNSCH PRN BUCCAL 03/03/17 16:30 Potassium Chloride 100 ml @ 50 mls/hr UNSCH PRN IV 03/03/17 16:30 Potassium Chloride 100 ml @ 25 mls/hr UNSCH PRN IV 03/03/17 16:30 (Narcan Inj) 0.4 mg UNSCH PRN IV 03/03/17 16:30 (Morphine 1 Mg/ ml ENVIRONMENTAL HEALTH MANAGER) 30 mg UNSCH IV 03/03/17 16:30 03/03/17 17:17 ENVIRONMENTAL HEALTH MANAGER Dosage Infused (Pha) 1 Q8HR .XX 03/03/17 16:30 03/05/17 06:00 (Lipitor) 40 mg HS PO 03/03/17 21:00 03/04/17 22:08 (Remeron) 15 mg HS PO 03/03/17 21:00 03/04/17 22:08 (Inderal) 20 mg BID PO 03/03/17 21:00 03/04/17 08:54 Patient Own Medication PT OWN MED: PROTOPIC(TACROLIMIS) CREAM APPLY TOP BID BID TOPICAL 03/03/17 21:00 Future Hold (Duoneb Neb) 1 ampule Q4HR WHILE AWAKE NEB NEB 03/04/17 20:00 03/05/17 11:37 (Duoneb Neb) 1 ampule Q2HR NEB PRN NEB 03/04/17 18:15 (Deltasone) 50 mg DAILY PO 03/04/17 18:15 03/05/17 08:59 Sodium Bicarbonate 75 meq/Sodium Chloride 1,075 ml @ 100 mls/hr [id number] IV 03/05/17 11:00 Levofloxacin/ Dextrose 150 ml @ 100 mls/hr Q48H IV 03/05/17 11:00 Metronidazole 100 ml @ 100 mls/hr Q8H IV 03/05/17 11:00 (D50w (Vial) Inj) 50 ml UNSCH PRN IV PUSH 03/05/17 10:00 (Glucagon Inj) 1 mg UNSCH PRN OTHER 03/05/17 10:00 (NovoLOG SUPPLEMENTAL SCALE) 1 ACHS SLIDING SCALE SQ 03/05/17 12:00 (Levemir Inj) 10 units Q12HR SQ 03/05/17 21:00 (NovoLOG INJ) 3 units TIDAC SQ 03/05/17 12:00 Family History Noncontributory Social History Used to smoke half pack per day for several years stopped, history of alcohol use in the past Physical Exam Vital Signs Vital Signs Date Time Temp Pulse Resp B/P (MAP) Pulse Ox O2 Delivery O2 Flow Rate FiO2 03/05/17 08:00 96.0 65 18 89/55 (66) 95 03/05/17 07:58 98 21 03/05/17 06:00 18 03/05/17 04:30 98.2 77 18 95/51 (66) 95 03/05/17 00:35 97.9 77 17 101/60 (74) 97 03/04/17 22:08 18 03/04/17 20:00 97.9 76 18 101/58 (72) 95 03/04/17 16:00 97.1 82 14 112/65 (81) 94 03/04/17 14:00 18 Physical Exam GENERAL: Well-nourished, well-developed patient. SKIN: Warm and dry. HEAD: Normocephalic. EYES: No scleral icterus. No injection or drainage. NECK: Supple, trachea midline. No JVD or lymphadenopathy. CARDIOVASCULAR: Regular rate and rhythm without murmurs, gallops, or rubs. RESPIRATORY: Breath sounds equal bilaterally. No accessory muscle use. GASTROINTESTINAL: Abdomen soft, non-tender, nondistended. EXTREMITIES: No cyanosis, or edema. AV fistula right NEUROLOGICAL: Awake, alert, and oriented x 3. Non-focal. Laboratory Laboratory Tests Test 03/05/17 07:33 White Blood Count 16.3 Red Blood Count 3.26 Hemoglobin 9.7 Hematocrit 29.5 Mean Corpuscular Volume 90.4 Mean Corpuscular Hemoglobin 29.6 Mean Corpuscular Hemoglobin Concent 32.8 Red Cell Distribution Width 14.1 Platelet Count 195 Mean Platelet Volume 7.4 Neutrophils (%) (Auto) 94.9 Lymphocytes (%) (Auto) 2.9 Monocytes (%) (Auto) 2.1 Eosinophils (%) (Auto) 0.0 Basophils (%) (Auto) 0.1 Neutrophils # (Auto) 15.5 Lymphocytes # (Auto) 0.5 Monocytes # (Auto) 0.3 Eosinophils # (Auto) 0.0 Basophils # (Auto) 0.0 CBC Comment DIFF FINAL Differential Comment Blood Urea Nitrogen 21 Creatinine 2.71 Random Glucose 261 Total Protein 5.9 Albumin 1.6 Calcium Level 7.4 Phosphorus Level 2.7 Magnesium Level 2.0 Alkaline Phosphatase 122 Aspartate Amino Transf (AST/SGOT) 28 Alanine Aminotransferase (ALT/SGPT) 9 Total Bilirubin 1.2 Sodium Level 131 Potassium Level 6.6 Chloride Level 109 Carbon Dioxide Level 15.7 Anion Gap 6 Estimat Glomerular Filtration Rate 30 Protein Corrected Calcium 8.1 Date/Time Source Procedure Growth Status 03/03/17 06:15 Blood Peripheral Aerobic Blood Culture - Preliminary NO GROWTH IN 2 DAYS Resulted 03/03/17 06:15 Blood Peripheral Anaerobic Blood Culture - Preliminary NO GROWTH IN 2 DAYS Resulted 03/03/17 00:00 Wound Buttock Fungal Smear - Final NO FUNGAL ELEMENTS SEEN. Resulted 03/03/17 00:00 Wound Buttock Fungal Culture Pending Resulted Result Diagram: 03/05/17 0733 03/05/17 0733 Imaging Last Impressions Chest X-Ray 03/04/17 0000 Signed Impressions: Service Date/Time: Saturday, March 04, 2017 19:36 - CONCLUSION: No acute disease. Domingo Nelson MD Pelvis CT 03/03/17 0000 Signed Impressions: Service Date/Time: Friday, March 03, 2017 07:06 - CONCLUSION: 1. Bilateral perirectal abscess these seen within the posterior soft tissue. The one of the left is larger measuring 6.2 x 7.0 cm. 2. Small amount of pelvic ascites. 3. Air in the urinary bladder to be iatrogenic versus less likely infection or fistula formation. Cecil Tavares MD Assessment and Plan Problem List: (1) VIJAYA (acute kidney injury) ICD Codes: N17.9 - Acute kidney failure, unspecified Plan: This is gradually improving hydrate, avoid nephrotoxin and GFR is around 30 Avoid high potassium foods Controlled diabetes Avoid dye studies Follow BMP (2) CKD (chronic kidney disease), stage III ICD Codes: N18.3 - Chronic kidney disease, stage 3 (moderate) Plan: Patient has resolved acute renal failure and off dialysis (3) Left buttock abscess ICD Codes: L02.31 - Abscess of left buttock Status: Acute Plan: On vancomycin and Zosyn (4) Hypertension ICD Codes: I10 - Essential (primary) hypertension Status: Chronic Plan: Continue to monitor (5) Diabetes mellitus ICD Codes: E11.9 - Type 2 diabetes mellitus without complications Status: Chronic Plan: Monitor blood glucose (6) Acidosis, metabolic ICD Codes: E87.2 - Acidosis Plan: Started on bicarbonate drip he has anion gap 6 It is mainly on non-anion gap acidosis Lactic acid was elevated at 3.5 (7) Hyperkalemia ICD Codes: E87.5 - Hyperkalemia Plan: Patient potassium intake should be limited he has been treated for hyperkalemia Problem Qualifiers (1) Hypertension: Qualified Codes: I10 - Essential (primary) hypertension (2) Diabetes mellitus: Qualified Codes: E11.8 - Type 2 diabetes mellitus with unspecified complications Silverio Mcfarlane MD Mar 05, 2017 13:54
--- NOTE | 2017-03-05 14:13 | EKG ---
Date Performed: 03/05/2017 Time Performed: 09:28:15 PTAGE: 56 years EKG: Sinus rhythm NORMAL ECG PREVIOUS TRACING : 03/03/2017 14.48 DOCTOR: Kamran Koehler Interpretating Date/Time 03/05/2017 14:11:07
[2017-03-05] MEDS ORDERED: PANTOPRAZOLE SODIUM 40 MG VIAL IVP PRN (16:30)
[2017-03-05] MEDS ORDERED: ALUMINUM/MAGNESIUM/SIMETH 30 ML CUP PO PRN (17:30)
--- NOTE | 2017-03-05 19:37 | HHI.PR ---
Subjective Remarks C/R Surg POD # 2 afebrile, VSS appet better UO good Objective - Vital Signs Date Time Temp Pulse Resp B/P (MAP) Pulse Ox O2 Delivery O2 Flow Rate FiO2 03/05/17 16:00 96.3 76 20 115/78 (90) 96 03/05/17 07:58 21 03/03/17 17:30 Room Air Result Diagram: 03/05/17 0733 03/05/17 0733 Objective Remarks PE alert Abd - soft, wound clean, irrigated, repacked A/P Assessment and Plan Imp: OOB irrigate wounds, repack reg diet hep lock IVF dc plans Howie Wong MD Mar 05, 2017 19:37
[2017-03-05] MEDS: ATORVASTATIN 40 MG TAB PO SCH (21:24)
[2017-03-05] MEDS: MIRTAZAPINE 15 MG TAB PO SCH (21:25)
[2017-03-06] VITALS (7 sets, daily range): BP systolic 99–122; BP diastolic 61–75; PULSE 65–79; RESP 16–21; TEMP 96.1–97.2; O2SAT 98–100
--- NOTE | 2017-03-06 06:26 | MP ---
cc: MISHA WADE M.D. DATE OF PROCEDURE March 03, 2017 PREOPERATIVE DIAGNOSIS Very large ischial rectal abscesses. PROCEDURE Exam under anesthesia with drainage of large ischiorectal horseshoe abscess. POSTOPERATIVE DIAGNOSIS Very large ischial rectal abscesses. SURGEON Dr. Wade PROCEDURE The patient was placed in the supine position. After adequate general anesthesia his legs were placed in the [place] stirrups and supported appropriately. The perineum was then prepped with Betadine solution and draped in the usual sterile fashion. Initially a rectal exam was performed identifying a fairly empty rectum. The anal canal was dilated and a half-meadows retractor inserted. There did appear to be an opening in the posterior midline consistent with an internal opening. The left ischiorectal space was extremely hard and distended, indurated. The right retroperitoneal space posteriorly was also hard and indurated. First a radial incision was made over the left ischiorectal space entering a very large cavity full of copious amounts of foul-smelling pus. The incision was opened and extended so that digitalization of the cavity could be undertaken and extended for quite a distance along the rectum, up toward the pubis and pelvic floor. A counterincision was then made over the right ischiorectal space posteriorly and a similar cavity was entered in the ischiorectal space draining additional purulent fluid. These two spaces connected posteriorly in the region of the midline crypt. The cavities were irrigated copiously with normal saline. Adequate hemostasis was achieved. After further debridement of some necrotic fat, hemostasis was achieved, both cavities packed loosely with large Kerlix dressings and fluff dressings externally. The patient tolerated the procedure quite well and was brought to the recovery room in stable condition. MD DAVIDE Matta/TANYA /7:40 PM /6:17 AM
--- NOTE | 2017-03-06 07:49 | HHI.PR ---
Subjective Remarks C/R Surg POD # 3 afebrile, VSS appet better UO good Objective - Vital Signs Date Time Temp Pulse Resp B/P (MAP) Pulse Ox O2 Delivery O2 Flow Rate FiO2 03/06/17 04:00 96.5 79 16 106/64 (78) 98 03/05/17 07:58 21 03/03/17 17:30 Room Air Result Diagram: 03/05/17 0733 03/05/17 0733 Objective Remarks PE alert Abd - soft, wound clean, irrigated, repacked A/P Assessment and Plan Imp: OOB irrigate wounds, repack reg diet hep lock PAUL brody dc plans Howie Wong MD Mar 06, 2017 07:49
[2017-03-06] MEDS: RESP: ALBUTEROL 2.5 MG/IPRATROPIUM 0.5 MG NEB (SCH) NEB ×3 (07:55→20:00)
[2017-03-06] MEDS: INSULIN DETEMIR 100 UNITS/ML VIAL SQ SCH ×2 (09:00→20:32)
[2017-03-06] MEDS: PANTOPRAZOLE SOD 40 MG DELAYED RELEASE TAB PO SCH (09:00)
[2017-03-06] MEDS: PROPRANOLOL HCL 20 MG TAB PO SCH ×2 (09:00→20:06)
[2017-03-06] MEDS: SODIUM CHLORIDE 0.9% FLUSH 5 ML FLUSH IVF SCH ×2 (09:00→20:05)
[2017-03-06] MEDS ORDERED: predniSONE 20 MG TAB PO SCH (09:00)
[2017-03-06] MEDS ORDERED: PANTOPRAZOLE SODIUM 40 MG VIAL IVP PRN (09:00)
[2017-03-06] MEDS: DOCUSATE SODIUM 50 MG/SENNA 8.6 MG TAB PO SCH ×2 (09:22→20:03)
[2017-03-06] MEDS: INSULIN ASPART 1,000 UNITS/10 ML VIAL SQ SCH ×3 (09:28→17:12)
[2017-03-06] MEDS: INSULIN ASPART SUPPLEMENTAL SCALE SQ SCH ×4 (09:28→20:33)
[2017-03-06 11:18] LABS: AUTOMATED NEUTROPHIL # 23.8 TH/MM3 (1.8-7.7); BASOPHIL # 0.1 TH/MM3 (0-0.2); BASOPHIL % 0.2 % (0.0-2.0); EOSINOPHIL % 0.1 % (0.0-4.0); HEMATOCRIT 31.6 % (39.0-51.0); HEMO FLAGS DIFF FINAL; LYMPH % 7.4 % (9.0-44.0); MEAN CELL VOLUME 90.8 FL (80.0-100.0); MEAN CORPUSCULAR HEMOGLOBIN 29.7 PG (27.0-34.0); MEAN CORPUSCULAR HGB CONC 32.7 % (32.0-36.0); MONO % 4.8 % (0.0-8.0); NEUT % 87.5 % (16.0-70.0); PLATELET COUNT 218 TH/MM3 (150-450); RED BLOOD COUNT 3.48 MIL/MM3 (4.50-5.90); RED CELL DISTRIBUTION WIDTH 14.3 % (11.6-17.2); WHITE BLOOD COUNT 27.2 TH/MM3 (4.0-11.0)
[2017-03-06 11:49] LABS: ALKALINE PHOSPHATASE 163 U/L (45-117); ALT (GPT) 10 U/L (12-78); ANION GAP 9 MEQ/L (5-15); AST (GOT) 30 U/L (15-37); BICARBONATE 18.3 MEQ/L (21.0-32.0); BLOOD UREA NITROGEN 22 MG/DL (7-18); CHLORIDE 107 MEQ/L (98-107); GLOMERULAR FILTRATION RATE 31 ML/MIN (>89); POTASSIUM 5.7 MEQ/L (3.5-5.1); SODIUM (NA) 134 MEQ/L (136-145); TOTAL BILIRUBIN ADULT 0.9 MG/DL (0.2-1.0)
--- NOTE | 2017-03-06 13:14 | HHI.NPPN ---
Subjective History of Present Illness Hx of CKD DM, Estrellita rectal abscess Additional Remarks c/o severe heart burn Review of Systems General Constitutional: Fatigue Gastrointestinal Gastrointestinal: Heartburn Objective Data Data Vital Signs Date Time Temp Pulse Resp B/P (MAP) Pulse Ox O2 Delivery O2 Flow Rate FiO2 03/06/17 11:18 99 03/06/17 08:58 96.7 73 20 99/62 (74) 98 03/06/17 04:00 96.5 79 16 106/64 (78) 98 03/06/17 00:00 96.9 77 17 108/75 (86) 98 03/05/17 21:03 96 03/05/17 20:00 97.0 91 18 103/64 (77) 98 03/05/17 16:00 96.3 76 20 115/78 (90) 96 -: 03/06/17 1031 03/06/17 1031 Microbiology 03/05/17 Aerobic Blood Culture - Preliminary, Resulted NO GROWTH IN 1 DAY 03/05/17 Anaerobic Blood Culture - Preliminary, Resulted NO GROWTH IN 1 DAY 03/05/17 Aerobic Blood Culture - Preliminary, Resulted NO GROWTH IN 1 DAY 03/05/17 Anaerobic Blood Culture - Preliminary, Resulted NO GROWTH IN 1 DAY Physical Exam General Appearance: Well Developed Throat Throat Exam: Oral Mucosa [place] & Moist Neck Neck Exam: Neck Supple Pulmonary Resp Exam: Clear Bilaterally, Breath Sounds Equal Cardiology CV Exam: Regular, Normal Sinus Rhythm Gastrointestinal/Abdomen GI Exam: Soft, Bowel Sounds Present Extremeties Extremities Exam: No Edema Assessment/Plan Problem List: (1) VIJAYA (acute kidney injury) ICD Codes: N17.9 - Acute kidney failure, unspecified Plan: Cr 2.5 K 5.7 stop Prednisone he is diabetic with infection and CKD I do not see an indication for this c/o severe heart burn stop K supplements give Kayexalate Avoid high potassium foods Control diabetes Avoid dye studies Follow BMP (2) CKD (chronic kidney disease), stage III ICD Codes: N18.3 - Chronic kidney disease, stage 3 (moderate) Plan: Patient has resolved acute renal failure and off dialysis (3) Left buttock abscess ICD Codes: L02.31 - Abscess of left buttock Status: Acute Plan: On vancomycin and Zosyn (4) Hypertension ICD Codes: I10 - Essential (primary) hypertension Status: Chronic Plan: Continue to monitor (5) Diabetes mellitus ICD Codes: E11.9 - Type 2 diabetes mellitus without complications Status: Chronic Plan: Monitor blood glucose (6) Acidosis, metabolic ICD Codes: E87.2 - Acidosis Plan: Started on bicarbonate drip he has anion gap 6 It is mainly on non-anion gap acidosis Lactic acid was elevated at 3.5 (7) Hyperkalemia ICD Codes: E87.5 - Hyperkalemia Plan: Patient potassium intake should be limited he has been treated for hyperkalemia Problem Qualifiers (1) Hypertension: Qualified Codes: I10 - Essential (primary) hypertension (2) Diabetes mellitus: Qualified Codes: E11.8 - Type 2 diabetes mellitus with unspecified complications Silverio Mcfarlane MD Mar 06, 2017 13:14
[2017-03-06] MEDS ORDERED: SODIUM POLYSTYRENE SULFONATE SUSP 15 GM/60 ML CUP PO ONE (13:15)
--- NOTE | 2017-03-06 17:15 | HHI.PR ---
Subjective Remarks Denies fevers and chills Denies cp/sob K still elevated Objective Vitals Vital Signs Date Time Temp Pulse Resp B/P (MAP) Pulse Ox O2 Delivery O2 Flow Rate FiO2 03/06/17 16:54 96.1 68 19 113/69 (84) 100 03/06/17 12:31 97.2 65 19 122/72 (89) 98 03/06/17 11:18 99 03/06/17 08:58 96.7 73 20 99/62 (74) 98 03/06/17 04:00 96.5 79 16 106/64 (78) 98 03/06/17 00:00 96.9 77 17 108/75 (86) 98 03/05/17 21:03 96 03/05/17 20:00 97.0 91 18 103/64 (77) 98 I/O 03/05/17 03/05/17 03/05/17 03/06/17 03/06/17 03/06/17 07:00 15:00 23:00 07:00 15:00 23:00 Intake Total 480 ml 750 ml 1620 ml 200 ml Output Total 775 ml Balance -295 ml 750 ml 1620 ml 200 ml Intake Oral 480 ml 1000 ml 200 ml IV Total 750 ml 620 ml Output Urine Total 775 ml # Voids 1 3 2 Result Diagram: 03/06/17 1031 03/06/17 1031 Imaging Last Impressions Renal Ultrasound 03/05/17 0000 Signed Impressions: Service Date/Time: Sunday, March 05, 2017 10:07 - CONCLUSION: Kidneys are unremarkable. Bladder is decompressed with Rodgers. There is free fluid in the pelvis. Domingo Britton MD Chest X-Ray 03/04/17 0000 Signed Impressions: Service Date/Time: Saturday, March 04, 2017 19:36 - CONCLUSION: No acute disease. Domingo Nelson MD Pelvis CT 03/03/17 0000 Signed Impressions: Service Date/Time: Friday, March 03, 2017 07:06 - CONCLUSION: 1. Bilateral perirectal abscess these seen within the posterior soft tissue. The one of the left is larger measuring 6.2 x 7.0 cm. 2. Small amount of pelvic ascites. 3. Air in the urinary bladder to be iatrogenic versus less likely infection or fistula formation. Cecil Tavares MD Objective Remarks AAox3 BL expiratory wheezing on lung exam S1S2 RRR, no MRG wound in buttock with dressing C/D/I abdomen is soft, non tender, non distended Procedures Incision and drainage of perirectal abscesses under anesthesia. Medications and IVs Current Medications Medications (Trade) Dose Ordered Sig/Damir Route Start Time Stop Time Status Last Admin (Estrellita-Colace) 1 tab BID PO 03/03/17 21:00 03/06/17 20:03 (Milk Of Magnesia Liq) 30 ml Q12H PRN PO 03/03/17 10:15 (Senokot) 17.2 mg Q12H PRN PO 03/03/17 10:15 (NS Flush) 2 ml UNSCH PRN IVF 03/03/17 16:30 (NS Flush) 2 ml BID IVF 03/03/17 21:00 03/06/17 20:05 ([place] 5-325 Mg) 1 tab Q4H PRN PO 03/03/17 16:30 ([place] 5-325 Mg) 2 tab Q4H PRN PO 03/03/17 16:30 (Tylenol) 650 mg Q4H PRN PO 03/03/17 16:30 (Protonix) 40 mg DAILY PO 03/04/17 09:00 03/05/17 08:59 (Zofran Inj) 4 mg Q6H PRN IV 03/03/17 16:30 (Vasotec Inj) 1.25 mg Q4H PRN IV 03/03/17 16:30 (Vasotec Inj) 2.5 mg Q6H PRN IV 03/03/17 16:30 (Chloraseptic Jorge) 1 lozenge UNSCH PRN BUCCAL 03/03/17 16:30 (Lipitor) 40 mg HS PO 03/03/17 21:00 03/06/17 20:04 (Remeron) 15 mg HS PO 03/03/17 21:00 03/06/17 20:01 (Inderal) 20 mg BID PO 03/03/17 21:00 03/05/17 21:24 Patient Own Medication PT OWN MED: PROTOPIC(TACROLIMIS) CREAM APPLY TOP BID BID TOPICAL 03/03/17 21:00 Future Hold (Duoneb Neb) 1 ampule Q4HR WHILE AWAKE NEB NEB 03/04/17 20:00 03/06/17 11:16 (Duoneb Neb) 1 ampule Q2HR NEB PRN NEB 03/04/17 18:15 (D50w (Vial) Inj) 50 ml UNSCH PRN IV PUSH 03/05/17 10:00 (Glucagon Inj) 1 mg UNSCH PRN OTHER 03/05/17 10:00 (NovoLOG SUPPLEMENTAL SCALE) 1 ACHS SLIDING SCALE SQ 03/05/17 12:00 03/06/17 20:33 (Protonix Inj) 40 mg DAILY PRN IVP 03/06/17 09:00 (Mag-Al Plus Susp Liq) 30 ml Q6H PRN PO 03/05/17 17:30 03/05/17 18:30 (NovoLOG INJ) 5 units TIDAC SQ 03/06/17 17:00 03/06/17 17:12 (Levemir Inj) 15 units Q12HR SQ 03/06/17 21:00 A/P Problem List: (1) Severe sepsis ICD Code: A41.9 - Sepsis, unspecified organism; R65.20 - Severe sepsis without septic shock Status: Acute (2) Left buttock abscess ICD Code: L02.31 - Abscess of left buttock Status: Acute (3) Diabetes mellitus ICD Code: E11.9 - Type 2 diabetes mellitus without complications Status: Chronic (4) Hypertension ICD Code: I10 - Essential (primary) hypertension Status: Chronic (5) Hyperlipidemia ICD Code: E78.5 - Hyperlipidemia Status: Chronic (6) Hyponatremia ICD Code: E87.1 - Hypo-osmolality and hyponatremia (7) VIJAYA (acute kidney injury) ICD Code: N17.9 - Acute kidney failure, unspecified (8) CKD (chronic kidney disease), stage III ICD Code: N18.3 - Chronic kidney disease, stage 3 (moderate) (9) Hypocalcemia ICD Code: E83.51 - Hypocalcemia Assessment and Plan (1) Severe sepsis ICD Code: A41.9 - Sepsis, unspecified organism; R65.20 - Severe sepsis without septic shock Status: Acute Plan: Severe sepsis present on admission patient with leukocytosis, tachycardia Patient is status post I&D by colorectal surgery. Admitted to the medical floor Placed the patient on IV ciprofloxacin and IV Flagyl, the patient was given IV clindamycin emergency department IV fluids Monitor vital signs and CBC 03/05 Stable WBC. Blood cultures growing gram positive cocci in pairs and clusters. Wound cultures growing gram negative rods. Appreciate ID recommendations. Switched antibiotics to po levaquin and Flagyl. 03/06 Worsening leukocytosis however patient looks stable clinically. Antibiotics discontinued as per Dr Wong. Will keep monitoring for fever and signs of infection and repeat a cbc. Continue to monitor cbc. Also discussed with ID. (2) Left buttock abscess Plan: As above. sp Wound care as per Dr Wong (3) Diabetes mellitus Plan: Blood sugars elevated and uncontrolled. 03/05 Will start on Basal bolus therapy with insulin Levemir and insulin Novolog. 03/06 Blood sugars ans still very elevated in the 200's. Will increase Levemir dose to 15 mg SQ BID and increase insulin novolog from 3 units TIDAC. (4) Hypertension ICD Code: I10 - Essential (primary) hypertension Status: Chronic Plan: BP stable. Antihypertensive medications not started since bp stable. Continue to monitor bp off antihypertensive medications. (5) Hyperlipidemia ICD Code: E78.5 - Hyperlipidemia Status: Chronic Plan: Continue statin (6) Hyponatremia ICD Code: E87.1 - Hypo-osmolality and hyponatremia Plan: Likely due to hypovolemic hyponatremia. Started on IV fluids in the form of normal saline and monitor BMP. 03/05 sodium slowly trending up. 134 today. 03/06 NA 135 (7) VIJAYA (acute kidney injury) ICD Code: N17.9 - Acute kidney failure, unspecified Plan: Likely prerenal azotemia. Creatinine trending down. Continue IV fluids and monitor BMP. 03/05 Continue to monitor bun/creatinine, will consult nephrology - renal us shows unremarkable kidneys. 03/06 Creatinine trending down today 1.5. Appreciate nephrology recommendations. (8) CKD (chronic kidney disease), stage III ICD Code: N18.3 - Chronic kidney disease, stage 3 (moderate) Plan: Uppon review of records the patient has a paced and creatinine of 2.3. Creatinine on admission is 3.14, suspect prerenal azotemia from dehydration, sepsis, possible ATN. I will give IV fluids and monitor BUN/creatinine, avoid nephrotoxins, monitor strict I's and O's. (9) Hypocalcemia ICD Code: E83.51 - Hypocalcemia Plan: Replace with IV Calcium Chloride. Monitor Calcium levels. 10/ corrected calcium still low at 8.1. Will replace with IV calcium chloride 10.5 Resolved. Continue ot monitor and replace as needed. (10) Hyperkalemia ICD Code: E87.5 - Hyperkalemia Status: Acute Plan: K 6.6. Likely due to VIJAYA and hyperglycemia. Ordered D5 + insulin IV. EKG reviewed by me shows normal sinus rythm and no changes consistent with hyperkalemia. Continue to monitor bmp 10/5 K still elevated but improving. Kayexalate ordered by nephrology. Continue IV fluids. (11) Metabolic acidosis ICD Code: E87.2 - Acidosis Plan: Due to VIJAYA - Improving, continue 1/2 NS + sodium bicarbonate. Assessment and Plan Gi prophylaxis - PPI DVT prophylaxis - SCD's Problem Qualifiers (1) Diabetes mellitus: Qualified Codes: E11.8 - Type 2 diabetes mellitus with unspecified complications (2) Hypertension: Qualified Codes: I10 - Essential (primary) hypertension (3) Hyperlipidemia: Qualified Codes: E78.5 - Hyperlipidemia, unspecified Tre Aleman MD Mar 06, 2017 17:15
[2017-03-06 18:07] LABS: AUTOMATED NEUTROPHIL # 19.4 TH/MM3 (1.8-7.7); BASOPHIL % 0.1 % (0.0-2.0); HEMO FLAGS DIFF FINAL; LYMPH % 6.6 % (9.0-44.0); LYMPHOCYTE # 1.5 TH/MM3 (1.0-4.8); MEAN CORPUSCULAR HEMOGLOBIN 30.4 PG (27.0-34.0); MEAN CORPUSCULAR HGB CONC 33.8 % (32.0-36.0); NEUT % 88.3 % (16.0-70.0); PLATELET COUNT 202 TH/MM3 (150-450); RED BLOOD COUNT 3.23 MIL/MM3 (4.50-5.90); RED CELL DISTRIBUTION WIDTH 14.3 % (11.6-17.2)
[2017-03-06 18:32] LABS: ALT (GPT) 13 U/L (12-78); ANION GAP 7 MEQ/L (5-15); AST (GOT) 33 U/L (15-37); BICARBONATE 18.7 MEQ/L (21.0-32.0); BLOOD UREA NITROGEN 24 MG/DL (7-18); CHLORIDE 109 MEQ/L (98-107); GLOMERULAR FILTRATION RATE 35 ML/MIN (>89); POTASSIUM 5.5 MEQ/L (3.5-5.1); SODIUM (NA) 135 MEQ/L (136-145)
[2017-03-06 18:35] LABS: ALKALINE PHOSPHATASE 145 U/L (45-117); TOTAL BILIRUBIN ADULT 0.8 MG/DL (0.2-1.0)
[2017-03-06] MEDS: MIRTAZAPINE 15 MG TAB PO SCH (20:01)
[2017-03-06] MEDS: ATORVASTATIN 40 MG TAB PO SCH (20:04)
[2017-03-07] VITALS (8 sets, daily range): BP systolic 98–109; BP diastolic 58–71; PULSE 69–81; RESP 15–21; TEMP 96.3–97.9; O2SAT 96–100
[2017-03-07 07:01] LABS: AUTOMATED NEUTROPHIL # 17.8 TH/MM3 (1.8-7.7); BASOPHIL % 0.1 % (0.0-2.0); EOSINOPHIL % 0.1 % (0.0-4.0); HEMATOCRIT 32.7 % (39.0-51.0); HEMO FLAGS DIFF FINAL; LYMPH % 11.3 % (9.0-44.0); LYMPHOCYTE # 2.5 TH/MM3 (1.0-4.8); MEAN CELL VOLUME 90.7 FL (80.0-100.0); MEAN CORPUSCULAR HEMOGLOBIN 29.6 PG (27.0-34.0); MEAN CORPUSCULAR HGB CONC 32.6 % (32.0-36.0); MONO % 8.5 % (0.0-8.0); PLATELET COUNT 253 TH/MM3 (150-450); RED CELL DISTRIBUTION WIDTH 14.5 % (11.6-17.2); WHITE BLOOD COUNT 22.2 TH/MM3 (4.0-11.0)
[2017-03-07] MEDS: INSULIN DETEMIR 100 UNITS/ML VIAL SQ SCH ×2 (09:00→20:51)
--- NOTE | 2017-03-07 09:32 | HHI.IDPN ---
Subjective Subjective Remarks Patient is a 56-year-old male, presented to the hospital for further evaluation of worsening pain in his buttocks. Patient stated his problems started about 2 weeks ago when he started having some problem with hemorrhoids. He felt several lumps and he's had previous problem with hemorrhoids.. Lately he noted a lump on his left buttock and it started getting worse. He saw his primary care doctor, and some workup was ordered, however patient couldn't stand the pain, so he presented to the hospital for further evaluation and treatment. He also had some vomiting. He had some subjective fevers, and some chills. He has not had any respiratory complaint, abdominal pain, diarrhea or constipation. He also denies any urinary complaints. Patient since admission has not had any fever. His WBC is elevated. Colorectal surgery saw the patient , and patient underwent surgery for IND of buttock abscess, perirectal abscess. He had 2 blood cultures done on admission, and 1 blood culture is growing coag -negative staph. Culture from surgery has Escherichia coli, AFB and fungal cultures are still pending. Patient still complains of pain in the left buttock mostly, but it's better compared to when he first presented. 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 Sleep apnea [place] 2 hemorrhoids Allergies: Coded Allergies: Penicillins (Verified Allergy, Severe, Throat closes up, 03/05/17) cetirizine (Unverified Allergy, Severe, RASH, 01/14/17) shellfish derived (Unverified Allergy, Intermediate, 01/14/17) fish and shellfish Objective . Vital Signs Date Time Temp Pulse Resp B/P (MAP) Pulse Ox O2 Delivery O2 Flow Rate FiO2 03/07/17 08:31 96.3 79 19 98/58 (71) 99 03/07/17 07:45 100 03/07/17 06:00 96.7 69 15 109/71 (84) 100 03/07/17 00:00 97.8 81 21 109/70 (83) 98 03/06/17 20:00 96.7 74 21 102/61 (75) 100 03/06/17 16:54 96.1 68 19 113/69 (84) 100 03/06/17 12:31 97.2 65 19 122/72 (89) 98 03/06/17 11:18 99 . Laboratory Tests Test 03/06/17 10:31 03/06/17 17:26 03/07/17 06:23 White Blood Count 27.2 TH/MM3 22.0 TH/MM3 22.2 TH/MM3 Red Blood Count 3.48 MIL/MM3 3.23 MIL/MM3 3.60 MIL/MM3 Hemoglobin 10.3 GM/DL 9.8 GM/DL 10.7 GM/DL Hematocrit 31.6 % 29.0 % 32.7 % Mean Corpuscular Volume 90.8 FL 90.0 FL 90.7 FL Mean Corpuscular Hemoglobin 29.7 PG 30.4 PG 29.6 PG Mean Corpuscular Hemoglobin Concent 32.7 % 33.8 % 32.6 % Red Cell Distribution Width 14.3 % 14.3 % 14.5 % Platelet Count 218 TH/MM3 202 TH/MM3 253 TH/MM3 Mean Platelet Volume 7.7 FL 7.7 FL 7.4 FL Neutrophils (%) (Auto) 87.5 % 88.3 % 80.0 % Lymphocytes (%) (Auto) 7.4 % 6.6 % 11.3 % Monocytes (%) (Auto) 4.8 % 5.0 % 8.5 % Eosinophils (%) (Auto) 0.1 % 0.0 % 0.1 % Basophils (%) (Auto) 0.2 % 0.1 % 0.1 % Neutrophils # (Auto) 23.8 TH/MM3 19.4 TH/MM3 17.8 TH/MM3 Lymphocytes # (Auto) 2.0 TH/MM3 1.5 TH/MM3 2.5 TH/MM3 Monocytes # (Auto) 1.3 TH/MM3 1.1 TH/MM3 1.9 TH/MM3 Eosinophils # (Auto) 0.0 TH/MM3 0.0 TH/MM3 0.0 TH/MM3 Basophils # (Auto) 0.1 TH/MM3 0.0 TH/MM3 0.0 TH/MM3 CBC Comment DIFF FINAL DIFF FINAL DIFF FINAL Differential Comment Laboratory Tests Test 03/06/17 10:31 03/06/17 17:26 Blood Urea Nitrogen 22 MG/DL 24 MG/DL Creatinine 2.57 MG/DL 2.33 MG/DL Random Glucose 208 MG/DL 193 MG/DL Total Protein 6.5 GM/DL 6.3 GM/DL Albumin 2.0 GM/DL 1.9 GM/DL Calcium Level 8.5 MG/DL 8.2 MG/DL Alkaline Phosphatase 163 U/L 145 U/L Aspartate Amino Transf (AST/SGOT) 30 U/L 33 U/L Alanine Aminotransferase (ALT/SGPT) 10 U/L 13 U/L Total Bilirubin 0.9 MG/DL 0.8 MG/DL Sodium Level 134 MEQ/L 135 MEQ/L Potassium Level 5.7 MEQ/L 5.5 MEQ/L Chloride Level 107 MEQ/L 109 MEQ/L Carbon Dioxide Level 18.3 MEQ/L 18.7 MEQ/L Anion Gap 9 MEQ/L 7 MEQ/L Estimat Glomerular Filtration Rate 31 ML/MIN 35 ML/MIN Microbiology Date/Time Source Procedure Growth Status 03/05/17 16:25 Blood Peripheral Aerobic Blood Culture - Preliminary NO GROWTH IN 1 DAY Resulted 03/05/17 16:25 Blood Peripheral Anaerobic Blood Culture - Preliminary NO GROWTH IN 1 DAY Resulted 03/05/17 16:12 Blood Peripheral Aerobic Blood Culture - Preliminary NO GROWTH IN 1 DAY Resulted 03/05/17 16:12 Blood Peripheral Anaerobic Blood Culture - Preliminary NO GROWTH IN 1 DAY Resulted Imaging Renal Ultrasound 03/05/17 0000 Signed Impressions: Service Date/Time: Sunday, March 05, 2017 10:07 - CONCLUSION: Kidneys are unremarkable. Bladder is decompressed with Rodgers. There is free fluid in the pelvis. Domingo Britton MD Chest X-Ray 03/04/17 Signed Impressions: Service Date/Time: Saturday, March 04, 2017 19:36 - CONCLUSION: No acute disease. Domingo Nelson MD Pelvis CT 03/03/17 Signed Impressions: Service Date/Time: Friday, March 03, 2017 07:06 - CONCLUSION: 1. Bilateral perirectal abscess these seen within the posterior soft tissue. The one of the left is larger measuring 6.2 x 7.0 cm. 2. Small amount of pelvic ascites. 3. Air in the urinary bladder to be iatrogenic versus less likely infection or fistula formation. Cecil Tavares MD Physical Exam GENERAL: awake and alert, not in respiratory distress. SKIN: Warm and dry. No generalized rash HEAD: Atraumatic. Normocephalic. No temporal wasting, or tenderness. EYES: [place] conjunctiva. No petechia or hemorrhage. Pupils equal, round and reactive to light. Extraocular movements full and intact. No scleral icterus. No injection or drainage. EARS, NOSE AND THROAT: Nose without bleeding or purulent nasal discharge. No sinus tenderness. Mucous membranes pink and moist. He is edentulous, no oral lesions noted. NECK: Trachea midline. Supple and not tender, no meningeal signs CARDIOVASCULAR: Regular rate and rhythm. No murmurs, rubs or gallops heard RESPIRATORY: Clear to auscultation. Breath sounds equal bilaterally. No rales , wheezing or rhonchi ABDOMEN: Soft, non-tender, nondistended. Bowel sounds present and normoactive. No guarding. No rebound. No organomegaly. BACK: Has 2 incisions one in each buttock, with packing, the one on the L with improving induration and erythema EXTREMITIES: No clubbing, cyanosis, or edema. No calf tenderness. Well perfused and warm. AVF R arm with good thrill NEUROLOGICAL: Grossly non-focal PSYCHIATRIC: Normal affect, calm and cooperative. LINE: No evidence of infection Assessment & Plan Remarks IMPRESSION Mckinley buttock abscess, rectal abscess S/P I and D One (+) BC C/W contamination CKD States severe reaction to PCN (throat swelling and difficulty breathing), has tolerated several doses of Zosyn Leukocytosis RECOMMENDATION Patient not on Abx currently Wound care per CRS D/W Dr Mills D/C plans per CRS and med team I will sign off Please reconsult if with any new ID issue or question Emi Henning MD Mar 07, 2017 09:32
[2017-03-07] MEDS: PANTOPRAZOLE SOD 40 MG DELAYED RELEASE TAB PO SCH (10:17)
[2017-03-07] MEDS: PROPRANOLOL HCL 20 MG TAB PO SCH ×2 (10:17→20:49)
[2017-03-07] MEDS: DOCUSATE SODIUM 50 MG/SENNA 8.6 MG TAB PO SCH ×2 (10:18→20:51)
[2017-03-07] MEDS: INSULIN ASPART 1,000 UNITS/10 ML VIAL SQ SCH ×3 (10:18→17:00)
[2017-03-07] MEDS: INSULIN ASPART SUPPLEMENTAL SCALE SQ SCH ×3 (10:19→20:57)
--- NOTE | 2017-03-07 12:26 | HHI.NPPN ---
Subjective History of Present Illness Hx of CKD DM, Estrellita rectal abscess Additional Remarks doing better Review of Systems General Constitutional: Fatigue Gastrointestinal Gastrointestinal: Heartburn Objective Data Data Vital Signs Date Time Temp Pulse Resp B/P (MAP) Pulse Ox O2 Delivery O2 Flow Rate FiO2 03/07/17 08:31 96.3 79 19 98/58 (71) 99 03/07/17 07:45 100 03/07/17 06:00 96.7 69 15 109/71 (84) 100 03/07/17 00:00 97.8 81 21 109/70 (83) 98 03/06/17 20:00 96.7 74 21 102/61 (75) 100 03/06/17 16:54 96.1 68 19 113/69 (84) 100 03/06/17 12:31 97.2 65 19 122/72 (89) 98 -: 03/07/17 0623 03/06/17 1726 Physical Exam General Appearance: Well Developed Throat Throat Exam: Oral Mucosa [place] & Moist Neck Neck Exam: Neck Supple Pulmonary Resp Exam: Clear Bilaterally, Breath Sounds Equal Cardiology CV Exam: Regular, Normal Sinus Rhythm Gastrointestinal/Abdomen GI Exam: Soft, Bowel Sounds Present Extremeties Extremities Exam: No Edema Assessment/Plan Problem List: (1) VIJAYA (acute kidney injury) ICD Codes: N17.9 - Acute kidney failure, unspecified Plan: Cr 2.3 K 5.5 some improvement still gets heart pedroza Avoid high potassium foods give another Kayexalate Control diabetes Avoid dye studies Follow BMP dc plans (2) CKD (chronic kidney disease), stage III ICD Codes: N18.3 - Chronic kidney disease, stage 3 (moderate) Plan: Patient has resolved acute renal failure and off dialysis (3) Left buttock abscess ICD Codes: L02.31 - Abscess of left buttock Status: Acute Plan: On vancomycin and Zosyn (4) Hypertension ICD Codes: I10 - Essential (primary) hypertension Status: Chronic Plan: Continue to monitor (5) Diabetes mellitus ICD Codes: E11.9 - Type 2 diabetes mellitus without complications Status: Chronic Plan: Monitor blood glucose (6) Acidosis, metabolic ICD Codes: E87.2 - Acidosis Plan: Started on bicarbonate drip he has anion gap 6 It is mainly on non-anion gap acidosis Lactic acid was elevated at 3.5 (7) Hyperkalemia ICD Codes: E87.5 - Hyperkalemia Status: Acute Plan: Patient potassium intake should be limited he has been treated for hyperkalemia Problem Qualifiers (1) Hypertension: Qualified Codes: I10 - Essential (primary) hypertension (2) Diabetes mellitus: Qualified Codes: E11.8 - Type 2 diabetes mellitus with unspecified complications Silverio Mcfarlane MD Mar 07, 2017 12:26
[2017-03-07] MEDS ORDERED: SODIUM POLYSTYRENE SULFONATE SUSP 15 GM/60 ML CUP PO ONE (12:45)
--- NOTE | 2017-03-07 12:48 | HHI.PR ---
Subjective Remarks C/R Surg POD # 3 afebrile, VSS appet better UO good Objective - Vital Signs Date Time Temp Pulse Resp B/P (MAP) Pulse Ox O2 Delivery O2 Flow Rate FiO2 03/07/17 08:31 96.3 79 19 98/58 (71) 99 03/05/17 07:58 21 03/03/17 17:30 Room Air Result Diagram: 03/07/17 0623 03/06/17 7596 Objective Remarks PE alert Abd - soft, wound clean, probed deep, no drainage A/P Assessment and Plan Imp: OOB irrigate wounds, repack reg diet hep lock IVF dc brody dc plans ?WBC Howie Wong MD Mar 07, 2017 12:48
[2017-03-07] MEDS: RESP: ALBUTEROL 2.5 MG/IPRATROPIUM 0.5 MG NEB (SCH) NEB ×2 (15:24→19:13)
--- NOTE | 2017-03-07 15:52 | HHI.PR ---
Subjective Remarks Late entry - patient on 03/07/17 at 3:45 pm patient denies cp/sob denies diarrhea denies fevers/chills stable vital signs - afebrile Objective Vitals Vital Signs Date Time Temp Pulse Resp B/P (MAP) Pulse Ox O2 Delivery O2 Flow Rate FiO2 03/07/17 15:24 99 21 03/07/17 12:53 97.2 73 19 109/66 (80) 100 03/07/17 08:31 96.3 79 19 98/58 (71) 99 03/07/17 07:45 100 03/07/17 06:00 96.7 69 15 109/71 (84) 100 03/07/17 00:00 97.8 81 21 109/70 (83) 98 03/06/17 20:00 96.7 74 21 102/61 (75) 100 03/06/17 16:54 96.1 68 19 113/69 (84) 100 I/O 03/06/17 03/06/17 03/06/17 03/07/17 03/07/17 03/07/17 07:00 15:00 23:00 07:00 15:00 23:00 Intake Total 200 ml 1320 ml 240 ml Output Total 4 ml Balance 200 ml 1316 ml 240 ml Intake Oral 200 ml 1320 ml 240 ml Output Urine Total 4 ml # Voids 2 4 1 # Bowel Movements 4 1 Result Diagram: 03/07/17 0623 03/06/17 1726 Objective Remarks AAox3 BL expiratory wheezing on lung exam S1S2 RRR, no MRG wound in buttock with dressing C/D/I abdomen is soft, non tender, non distended Procedures Incision and drainage of perirectal abscesses under anesthesia. A/P Problem List: (1) Severe sepsis ICD Code: A41.9 - Sepsis, unspecified organism; R65.20 - Severe sepsis without septic shock Status: Acute (2) Left buttock abscess ICD Code: L02.31 - Abscess of left buttock Status: Acute (3) Diabetes mellitus ICD Code: E11.9 - Type 2 diabetes mellitus without complications Status: Chronic (4) Hypertension ICD Code: I10 - Essential (primary) hypertension Status: Chronic (5) Hyperlipidemia ICD Code: E78.5 - Hyperlipidemia Status: Chronic (6) Hyponatremia ICD Code: E87.1 - Hypo-osmolality and hyponatremia (7) VIJAYA (acute kidney injury) ICD Code: N17.9 - Acute kidney failure, unspecified (8) CKD (chronic kidney disease), stage III ICD Code: N18.3 - Chronic kidney disease, stage 3 (moderate) (9) Hypocalcemia ICD Code: E83.51 - Hypocalcemia (10) Hyperkalemia ICD Code: E87.5 - Hyperkalemia Status: Acute (11) Metabolic acidosis ICD Code: E87.2 - Acidosis Assessment and Plan (1) Severe sepsis ICD Code: A41.9 - Sepsis, unspecified organism; R65.20 - Severe sepsis without septic shock Status: Acute Plan: Severe sepsis present on admission patient with leukocytosis, tachycardia Patient is status post I&D by colorectal surgery. Admitted to the medical floor Placed the patient on IV ciprofloxacin and IV Flagyl, the patient was given IV clindamycin emergency department IV fluids Monitor vital signs and CBC 03/05 Stable WBC. Blood cultures growing gram positive cocci in pairs and clusters. Wound cultures growing gram negative rods. Appreciate ID recommendations. Switched antibiotics to po levaquin and Flagyl. 03/06 Worsening leukocytosis however patient looks stable clinically. Antibiotics discontinued as per Dr Wong. Will keep monitoring for fever and signs of infection and repeat a cbc. Continue to monitor cbc. Also discussed with ID. 03/07 Leukocytosis likely reactive and trending down. Continue to monitor off antibiotics. Continue to monitor cbc. (2) Left buttock abscess Plan: As above. sp Wound care as per Dr Wong (3) Diabetes mellitus Plan: Blood sugars elevated and uncontrolled. 03/05 Will start on Basal bolus therapy with insulin Levemir and insulin Novolog. 03/06 Blood sugars ans still very elevated in the 200's. Will increase Levemir dose to 15 mg SQ BID and increase insulin novolog from 3 units TIDAC. 03/07 Blood sugar control improving. continue management as above. (4) Hypertension Plan: BP stable. Antihypertensive medications not started since bp stable. Continue to monitor bp off antihypertensive medications. (5) Hyperlipidemia Plan: Continue statin (6) Hyponatremia Plan: Likely due to hypovolemic hyponatremia. Started on IV fluids in the form of normal saline and monitor BMP. 03/05 sodium slowly trending up. 134 today. 03/06 NA 135 - Resolved (7) VIJAYA (acute kidney injury) Plan: Likely prerenal azotemia. Creatinine trending down. Continue IV fluids and monitor BMP. 10/4 Continue to monitor bun/creatinine, will consult nephrology - renal us shows unremarkable kidneys. 10/5 Creatinine trending down today 1.5. Appreciate nephrology recommendations. 10/6 Creatinine at baseline - VIJAYA resolved. (8) CKD (chronic kidney disease), stage III ICD Code: N18.3 - Chronic kidney disease, stage 3 (moderate) Plan: Uppon review of records the patient has a paced and creatinine of 2.3. Creatinine on admission is 3.14, suspect prerenal azotemia from dehydration, sepsis, possible ATN. I will give IV fluids and monitor BUN/creatinine, avoid nephrotoxins, monitor strict I's and O's. (9) Hypocalcemia Plan: Replace with IV Calcium Chloride. Monitor Calcium levels. / corrected calcium still low at 8.1. Will replace with IV calcium chloride 10.5 Resolved. Continue to monitor and replace as needed. (10) Hyperkalemia Plan: K 6.6. Likely due to VIJAYA and hyperglycemia. Ordered D5 + insulin IV. EKG reviewed by me shows normal sinus rythm and no changes consistent with hyperkalemia. Continue to monitor bmp 10/5 K still elevated but improving. Kayexalate ordered by nephrology. Continue IV fluids. 10/6 Potassium improving but still elevated at 5.5 yesterday. Sp Kayexalate. Repeat BMP. (11) Metabolic acidosis ICD Code: E87.2 - Acidosis Plan: Due to VIJAYA - Improving, continue 1/2 NS + sodium bicarbonate. Assessment and Plan Gi prophylaxis - PPI DVT prophylaxis - SCD's Discharge Planning Pending nephrology clearance - DC plannning. May Dc once hyperkalemia resolves. Problem Qualifiers (1) Diabetes mellitus: Qualified Codes: E11.8 - Type 2 diabetes mellitus with unspecified complications (2) Hypertension: Qualified Codes: I10 - Essential (primary) hypertension (3) Hyperlipidemia: Qualified Codes: E78.5 - Hyperlipidemia, unspecified Tre Aleman MD Mar 07, 2017 15:52
[2017-03-07 17:30] LABS: AUTOMATED NEUTROPHIL # 11.2 TH/MM3 (1.8-7.7); BASOPHIL % 0.1 % (0.0-2.0); EOSINOPHIL # 0.1 TH/MM3 (0-0.4); EOSINOPHIL % 0.4 % (0.0-4.0); HEMATOCRIT 34.7 % (39.0-51.0); LYMPH % 22.8 % (9.0-44.0); LYMPHOCYTE # 4.1 TH/MM3 (1.0-4.8); MEAN CELL VOLUME 91.1 FL (80.0-100.0); MEAN CORPUSCULAR HEMOGLOBIN 29.6 PG (27.0-34.0); MEAN CORPUSCULAR HGB CONC 32.5 % (32.0-36.0); MONO % 14.1 % (0.0-8.0); NEUT % 62.6 % (16.0-70.0); PLATELET COUNT 265 TH/MM3 (150-450); RED BLOOD COUNT 3.81 MIL/MM3 (4.50-5.90); RED CELL DISTRIBUTION WIDTH 14.3 % (11.6-17.2); WHITE BLOOD COUNT 17.9 TH/MM3 (4.0-11.0)
[2017-03-07 17:32] LABS: HEMO FLAGS AUTO DIFF
[2017-03-07 17:52] LABS: ALKALINE PHOSPHATASE 166 U/L (45-117); ALT (GPT) 20 U/L (12-78); ANION GAP 10 MEQ/L (5-15); AST (GOT) 52 U/L (15-37); BICARBONATE 17.5 MEQ/L (21.0-32.0); BLOOD UREA NITROGEN 22 MG/DL (7-18); CHLORIDE 109 MEQ/L (98-107); GLOMERULAR FILTRATION RATE 37 ML/MIN (>89); POTASSIUM 4.1 MEQ/L (3.5-5.1); SODIUM (NA) 136 MEQ/L (136-145); TOTAL BILIRUBIN ADULT 0.8 MG/DL (0.2-1.0)
[2017-03-07 18:01] LABS: ACANTHOCYTES 1+ (NORMAL)
[2017-03-07 18:02] LABS: PLATELET ESTIMATE SMEAR NORMAL (NORMAL); PLATELET MORPHOLOGY NORMAL (NORMAL); SCAN/DIFF AUTO DIFF CONFIRMED
[2017-03-07] MEDS: ATORVASTATIN 40 MG TAB PO SCH (20:51)
[2017-03-07] MEDS: MIRTAZAPINE 15 MG TAB PO SCH (20:51)
[2017-03-07] MEDS: SODIUM CHLORIDE 0.9% FLUSH 5 ML FLUSH IVF SCH (20:52)
[2017-03-08] VITALS: BP 96/69; PULSE 74; RESP 15; TEMP 97.7; O2SAT 99
[2017-03-08 04:00] VITALS: BP 101/57; PULSE 80; RESP 20; TEMP 97.5; O2SAT 96
[2017-03-08 06:15] LABS: AUTOMATED NEUTROPHIL # 6.3 TH/MM3 (1.8-7.7); BASOPHIL % 0.2 % (0.0-2.0); EOSINOPHIL # 0.1 TH/MM3 (0-0.4); EOSINOPHIL % 0.8 % (0.0-4.0); HEMATOCRIT 31.2 % (39.0-51.0); HEMO FLAGS DIFF FINAL; LYMPH % 32.9 % (9.0-44.0); LYMPHOCYTE # 3.9 TH/MM3 (1.0-4.8); MEAN CELL VOLUME 90.1 FL (80.0-100.0); MEAN CORPUSCULAR HEMOGLOBIN 29.6 PG (27.0-34.0); MEAN CORPUSCULAR HGB CONC 32.9 % (32.0-36.0); MONO % 13.6 % (0.0-8.0); NEUT % 52.5 % (16.0-70.0); PLATELET COUNT 213 TH/MM3 (150-450); RED BLOOD COUNT 3.46 MIL/MM3 (4.50-5.90); RED CELL DISTRIBUTION WIDTH 14.5 % (11.6-17.2)
[2017-03-08 06:25] LABS: ANION GAP 10 MEQ/L (5-15); AST (GOT) 49 U/L (15-37); BICARBONATE 18.3 MEQ/L (21.0-32.0); BLOOD UREA NITROGEN 23 MG/DL (7-18); CHLORIDE 109 MEQ/L (98-107); GLOMERULAR FILTRATION RATE 36 ML/MIN (>89); MAGNESIUM 1.7 MG/DL (1.5-2.5); POTASSIUM 4.4 MEQ/L (3.5-5.1); SODIUM (NA) 137 MEQ/L (136-145)
[2017-03-08 06:26] LABS: ALT (GPT) 20 U/L (12-78)
[2017-03-08 06:28] LABS: ALKALINE PHOSPHATASE 134 U/L (45-117); TOTAL BILIRUBIN ADULT 0.7 MG/DL (0.2-1.0)
[2017-03-08 08:00] VITALS: BP 112/69; PULSE 73; RESP 18; TEMP 98.2; O2SAT 98
[2017-03-08] MEDS: RESP: ALBUTEROL 2.5 MG/IPRATROPIUM 0.5 MG NEB (SCH) NEB ×3 (08:00→16:00)
[2017-03-08] MEDS: INSULIN ASPART SUPPLEMENTAL SCALE SQ SCH ×2 (08:00→12:44)
[2017-03-08] MEDS: INSULIN ASPART 1,000 UNITS/10 ML VIAL SQ SCH ×2 (08:00→12:42)
[2017-03-08] MEDS: INSULIN DETEMIR 100 UNITS/ML VIAL SQ SCH (09:00)
[2017-03-08] MEDS: DOCUSATE SODIUM 50 MG/SENNA 8.6 MG TAB PO SCH (09:00)
[2017-03-08] MEDS: PROPRANOLOL HCL 20 MG TAB PO SCH (09:00)
[2017-03-08] MEDS: SODIUM CHLORIDE 0.9% FLUSH 5 ML FLUSH IVF SCH (09:00)
[2017-03-08] MEDS: PANTOPRAZOLE SOD 40 MG DELAYED RELEASE TAB PO SCH (09:25)
--- NOTE | 2017-03-08 09:42 | HHI.NPPN ---
Subjective History of Present Illness 56-year-old male with history of chronic kidney disease and he had acute injury last year and developed renal failure requiring hemodialysis however he did recover his kidney functions came off the dialysis he has underlying hepatitis C, liver dysfunction, diabetes and hypertension, now admitted with rectal abscess. Additional Remarks Patient is alert, no SOB, has mild rectal pain. Review of Systems General Constitutional: Fatigue Gastrointestinal Gastrointestinal: Heartburn Objective Data Data Vital Signs Date Time Temp Pulse Resp B/P (MAP) Pulse Ox O2 Delivery O2 Flow Rate FiO2 03/08/17 04:00 97.5 80 20 101/57 (72) 96 03/08/17 00:00 97.7 74 15 96/69 (78) 99 03/07/17 20:00 97.6 79 16 103/65 (78) 96 03/07/17 16:58 97.9 73 19 107/67 (80) 98 03/07/17 15:24 99 21 03/07/17 12:53 97.2 73 19 109/66 (80) 100 -: 03/08/17 0555 03/08/17 0555 Physical Exam General Appearance: No Acute Distress, Comfortable Throat Throat Exam: Oral Mucosa [place] & Moist Neck Neck Exam: Neck Supple Pulmonary Resp Exam: Clear Bilaterally, Breath Sounds Equal Cardiology CV Exam: Regular, Normal Sinus Rhythm Gastrointestinal/Abdomen GI Exam: Soft, Non-Tender, Bowel Sounds Present, Distended Extremeties Extremities Exam: No Edema Neurologic Neuro Exam: Alert, Awake, Oriented Psychiatric Psych Exam: Appropriate Responses Assessment/Plan Problem List: (1) VIJAYA (acute kidney injury) ICD Codes: N17.9 - Acute kidney failure, unspecified Plan: Patient has chronic kidney disease, and develop VIJAYA and Hyperkalemia. K is now normal and Creatinine is 2.2, at his baseline. (2) CKD (chronic kidney disease), stage III ICD Codes: N18.3 - Chronic kidney disease, stage 3 (moderate) Plan: Patient has resolved acute renal failure and off dialysis (3) Left buttock abscess ICD Codes: L02.31 - Abscess of left buttock Status: Acute Plan: On vancomycin and Zosyn (4) Hypertension ICD Codes: I10 - Essential (primary) hypertension Status: Chronic Plan: Continue to monitor (5) Diabetes mellitus ICD Codes: E11.9 - Type 2 diabetes mellitus without complications Status: Chronic Plan: Monitor blood glucose (6) Acidosis, metabolic ICD Codes: E87.2 - Acidosis Plan: Started on bicarbonate drip he has anion gap 6 It is mainly on non-anion gap acidosis Lactic acid was elevated at 3.5 (7) Hyperkalemia ICD Codes: E87.5 - Hyperkalemia Status: Acute Plan: Patient potassium intake should be limited he has been treated for hyperkalemia Problem Qualifiers (1) Hypertension: Qualified Codes: I10 - Essential (primary) hypertension (2) Diabetes mellitus: Qualified Codes: E11.8 - Type 2 diabetes mellitus with unspecified complications Flores Gallegos MD Mar 08, 2017 09:42
--- NOTE | 2017-03-08 11:22 | HHI.PR ---
Subjective Remarks Perirectal abscess, s/p I & D Comfortable Objective Vital Signs Date Time Temp Pulse Resp B/P (MAP) Pulse Ox O2 Delivery O2 Flow Rate FiO2 03/08/17 08:00 98.2 73 18 112/69 (83) 98 03/08/17 04:00 97.5 80 20 101/57 (72) 96 03/08/17 00:00 97.7 74 15 96/69 (78) 99 03/07/17 20:00 97.6 79 16 103/65 (78) 96 03/07/17 16:58 97.9 73 19 107/67 (80) 98 03/07/17 15:24 99 21 03/07/17 12:53 97.2 73 19 109/66 (80) 100 I/O 03/07/17 03/07/17 03/07/17 03/08/17 03/08/17 03/08/17 07:00 15:00 23:00 07:00 15:00 23:00 Intake Total 240 ml 740 ml Balance 240 ml 740 ml Intake Oral 240 ml 740 ml # Voids 1 8 # Bowel Movements 1 6 Result Diagram: 03/08/17 0555 03/08/17 0555 Objective Remarks Wounds clean Assessment and Plan Assessment and Plan OK for d/c per CRS when ok with Medicine and Nephrology Ciprofloxacin and Flagyl for 5 days at discharge Visiting Nurse for dressing change - face to face completed Followup with Dr. Wong in 1 week Autumn Shen MD Mar 08, 2017 11:21
[2017-03-08] MEDS ORDERED: METR-1 PO (11:24)
[2017-03-08] MEDS ORDERED: CIPR500T2 PO (11:24)
--- NOTE | 2017-03-08 11:25 | HHI.FF ---
Face to Face Verification Diagnosis: (1) Perirectal abscess (2) Acute kidney injury Home Health Nursing Order: Wound care and dressing changes (Wet to dry to bilateral buttocks daily) I have seen patient Sarkis Mejia on 03/08/17. My clinical findings support the need for the requested home health care services because: Deconditioned w/ increased weakness Limited ability to care for self I certify that my clinical findings support that this patient is homebound because: Post-op weakness Autumn Shen MD Mar 08, 2017 11:25
[2017-03-08 12:00] VITALS: BP 101/67; PULSE 75; RESP 18; TEMP 97.3; O2SAT 98
[2017-03-08] MEDS ORDERED: PERC5TAB12 PO (14:42)
[2017-03-08] MEDS ORDERED: LEVEMIR SQ (14:42)
--- NOTE | 2017-03-08 14:45 | HHI.PR ---
Subjective Remarks This is a 56-year-old male with past medical history significant for insulin- dependent diabetes mellitus, hypertension who presents to [facility] complaining of left-sided buttock pain and swelling for 2 weeks. The patient is status post surgical station and drainage and cannot give very good history at this moment. History obtained from medical records. The patient states that he saw 2 weeks ago but he could not remember his name. The patient however denies any fevers or chills, patient as per records has history of chronic kidney disease, denies any injury or fall. Denies any chest pain, short of breath, denies nausea, denies vomiting, denies abdominal pain, denies dysuria. Patient stable seen in his bedroom, and discussed with Nurse as per Nephrology specialist okay to discharge and follow with Doctor Silverio Mcfarlane in one week. Objective Vital Signs Date Time Temp Pulse Resp B/P (MAP) Pulse Ox O2 Delivery O2 Flow Rate FiO2 03/08/17 12:00 97.3 75 18 101/67 (78) 98 03/08/17 08:00 98.2 73 18 112/69 (83) 98 03/08/17 04:00 97.5 80 20 101/57 (72) 96 03/08/17 00:00 97.7 74 15 96/69 (78) 99 03/07/17 20:00 97.6 79 16 103/65 (78) 96 03/07/17 16:58 97.9 73 19 107/67 (80) 98 03/07/17 15:24 99 21 I/O 03/07/17 03/07/17 03/07/17 03/08/17 03/08/17 03/08/17 07:00 15:00 23:00 07:00 15:00 23:00 Intake Total 240 ml 740 ml Balance 240 ml 740 ml Intake Oral 240 ml 740 ml # Voids 1 8 # Bowel Movements 1 6 Result Diagram: 03/08/17 0555 03/08/17 0555 Imaging Last Impressions Renal Ultrasound 03/05/17 0000 Signed Impressions: Service Date/Time: Sunday, March 05, 2017 10:07 - CONCLUSION: Kidneys are unremarkable. Bladder is decompressed with Rodgers. There is free fluid in the pelvis. Domingo Britton MD Chest X-Ray 03/04/17 0000 Signed Impressions: Service Date/Time: Saturday, March 04, 2017 19:36 - CONCLUSION: No acute disease. Domingo Nelson MD Pelvis CT 03/03/17 0000 Signed Impressions: Service Date/Time: Friday, March 03, 2017 07:06 - CONCLUSION: 1. Bilateral perirectal abscess these seen within the posterior soft tissue. The one of the left is larger measuring 6.2 x 7.0 cm. 2. Small amount of pelvic ascites. 3. Air in the urinary bladder to be iatrogenic versus less likely infection or fistula formation. Cecil Tavares MD Procedures Incision and drainage of perirectal abscesses under anesthesia. Other Results Laboratory Tests Test 03/03/17 06:15 03/03/17 10:05 03/04/17 07:04 03/05/17 07:33 Lactic Acid Level 3.5 mmol/L Prothrombin Time 16.7 SEC Prothromb Time International Ratio 1.5 RATIO Activated Partial Thromboplast Time 44.4 SEC Differential Total Cells Counted 100 Neutrophils % (Manual) 69 % Band Neutrophils % 17 % Lymphocytes % 8 % Monocytes % 6 % Neutrophils # (Manual) 14.1 TH/MM3 Toxic Granulation Dohle Bodies PRESENT Crenated Cell 1+ Protein Corrected Calcium 8.1 MG/DL Test 03/07/17 16:39 03/08/17 05:55 Platelet Estimate NORMAL Platelet Morphology Comment NORMAL Acanthocytes 1+ White Blood Count 12.0 TH/MM3 Red Blood Count 3.46 MIL/MM3 Hemoglobin 10.3 GM/DL Hematocrit 31.2 % Mean Corpuscular Volume 90.1 FL Mean Corpuscular Hemoglobin 29.6 PG Mean Corpuscular Hemoglobin Concent 32.9 % Red Cell Distribution Width 14.5 % Platelet Count 213 TH/MM3 Mean Platelet Volume 7.2 FL Neutrophils (%) (Auto) 52.5 % Lymphocytes (%) (Auto) 32.9 % Monocytes (%) (Auto) 13.6 % Eosinophils (%) (Auto) 0.8 % Basophils (%) (Auto) 0.2 % Neutrophils # (Auto) 6.3 TH/MM3 Lymphocytes # (Auto) 3.9 TH/MM3 Monocytes # (Auto) 1.6 TH/MM3 Eosinophils # (Auto) 0.1 TH/MM3 Basophils # (Auto) 0.0 TH/MM3 CBC Comment DIFF FINAL Differential Comment Blood Urea Nitrogen 23 MG/DL Creatinine 2.29 MG/DL Random Glucose 137 MG/DL Total Protein 6.0 GM/DL Albumin 1.9 GM/DL Calcium Level 8.4 MG/DL Phosphorus Level 3.1 MG/DL Magnesium Level 1.7 MG/DL Alkaline Phosphatase 134 U/L Aspartate Amino Transf (AST/SGOT) 49 U/L Alanine Aminotransferase (ALT/SGPT) 20 U/L Total Bilirubin 0.7 MG/DL Sodium Level 137 MEQ/L Potassium Level 4.4 MEQ/L Chloride Level 109 MEQ/L Carbon Dioxide Level 18.3 MEQ/L Anion Gap 10 MEQ/L Estimat Glomerular Filtration Rate 36 ML/MIN Objective Remarks GENERAL: Alert and Oriented x 3, NO acute distress. SKIN: Warm and dry. HEAD: Atraumatic. Normocephalic. EYES: Pupils equal and round. No scleral icterus. No injection or drainage. ENT: No nasal bleeding or discharge. Mucous membranes pink and moist. NECK: Trachea midline. No JVD. CARDIOVASCULAR: Regular rate and rhythm. RESPIRATORY: Decreased breath sounds bilateral, no wheezing or crackles. GASTROINTESTINAL: Abdomen soft, non-tender, nondistended. Hepatic and splenic margins not palpable. MUSCULOSKELETAL: Extremities without clubbing, cyanosis, or edema. No obvious deformities. NEUROLOGICAL: Awake and alert. No obvious cranial nerve deficits. PSYCHIATRIC: Appropriate mood and affect; insight and judgment normal. Medications and IVs Current Medications Medications (Trade) Dose Ordered Sig/Damir Route Start Time Stop Time Status Last Admin (Estrellita-Colace) 1 tab BID PO 03/03/17 21:00 03/07/17 10:18 (Milk Of Juan Liq) 30 ml Q12H PRN PO 03/03/17 10:15 (Senokot) 17.2 mg Q12H PRN PO 03/03/17 10:15 (NS Flush) 2 ml UNSCH PRN IVF 03/03/17 16:30 (NS Flush) 2 ml BID IVF 03/03/17 21:00 03/08/17 09:00 (Trevett 5-325 Mg) 1 tab Q4H PRN PO 03/03/17 16:30 (Trevett 5-325 Mg) 2 tab Q4H PRN PO 03/03/17 16:30 (Tylenol) 650 mg Q4H PRN PO 03/03/17 16:30 (Protonix) 40 mg DAILY PO 03/04/17 09:00 03/08/17 09:25 (Zofran Inj) 4 mg Q6H PRN IV 03/03/17 16:30 (Vasotec Inj) 1.25 mg Q4H PRN IV 03/03/17 16:30 (Vasotec Inj) 2.5 mg Q6H PRN IV 03/03/17 16:30 (Chloraseptic Jorge) 1 lozenge UNSCH PRN BUCCAL 03/03/17 16:30 (Lipitor) 40 mg HS PO 03/03/17 21:00 03/07/17 20:51 (Remeron) 15 mg HS PO 03/03/17 21:00 03/06/17 20:01 (Inderal) 20 mg BID PO 03/03/17 21:00 03/07/17 10:17 Patient Own Medication PT OWN MED: PROTOPIC(TACROLIMIS) CREAM APPLY TOP BID BID TOPICAL 03/03/17 21:00 Future Hold (Duoneb Neb) 1 ampule Q4HR WHILE AWAKE NEB NEB 03/04/17 20:00 03/07/17 15:24 (Duoneb Neb) 1 ampule Q2HR NEB PRN NEB 03/04/17 18:15 (D50w (Vial) Inj) 50 ml UNSCH PRN IV PUSH 03/05/17 10:00 (Glucagon Inj) 1 mg UNSCH PRN OTHER 03/05/17 10:00 (NovoLOG SUPPLEMENTAL SCALE) 1 ACHS SLIDING SCALE SQ 03/05/17 12:00 03/08/17 12:44 (Protonix Inj) 40 mg DAILY PRN IVP 03/06/17 09:00 (Mag-Al Plus Susp Liq) 30 ml Q6H PRN PO 03/05/17 17:30 03/05/17 18:30 (NovoLOG INJ) 5 units TIDAC SQ 03/06/17 17:00 03/08/17 12:42 (Levemir Inj) 15 units Q12HR SQ 03/06/17 21:00 A/P Assessment and Plan 1. Severe Sepsis, had Leukocytosis and tachycardia, status post I and D by Colorectal Surgery, on IV Ciprofloxacin and IV Flagyl also given Clindamycin in Emergency department, IV fluids given, stable blood cultures growing gram positive cocci in pairs and clusters, wound cultures growing gram negative rods. as per ID recommended Levaquin and Flagyl by mouth, scripts in chart. 2. Left Buttock Abscess status post I and D by Doctor 3. Diabetes Mellitus II, will continue Levemir for basal insulin and continue sliding scale. 4. Hypertension stable on antihypertensives. 5. Hyperlipidemia on Statins. 6. Acute Kidney Injury on chronic kidney disease Stage III Nephrology specialist following, today recommended to discharge and follow by Doctor Silverio Mcfarlane, 7. Hypercalcemia replaced 8. Hyperkalemia Improved recommended by Nephrology for discharge and follow. Assessment and Plan Gi prophylaxis - PPI DVT prophylaxis - SCD's Discharge Planning Okay by Nephrology to discharge today Home with [facility] Ty Quarles MD Mar 08, 2017 14:45
--- NOTE | 2017-03-08 14:56 | HHI.DS ---
Discharge Summary Admission Date Mar 03, 2017 at 09:51 Discharge Date: Mar 08, 2017 Admitting Diagnosis Perirectal abscess (1) Severe sepsis ICD Code: A41.9 - Sepsis, unspecified organism; R65.20 - Severe sepsis without septic shock Diagnosis: Principal Status: Acute (2) Left buttock abscess ICD Code: L02.31 - Abscess of left buttock Diagnosis: Principal Status: Acute (3) Diabetes mellitus ICD Code: E11.9 - Type 2 diabetes mellitus without complications Diagnosis: Principal Status: Chronic (4) Hypertension ICD Code: I10 - Essential (primary) hypertension Diagnosis: Principal Status: Chronic (5) Hyperlipidemia ICD Code: E78.5 - Hyperlipidemia Diagnosis: Secondary Status: Chronic (6) Hyponatremia ICD Code: E87.1 - Hypo-osmolality and hyponatremia Diagnosis: Principal (7) VIJAYA (acute kidney injury) ICD Code: N17.9 - Acute kidney failure, unspecified Diagnosis: Principal (8) CKD (chronic kidney disease), stage III ICD Code: N18.3 - Chronic kidney disease, stage 3 (moderate) Diagnosis: Principal (9) Hypocalcemia ICD Code: E83.51 - Hypocalcemia Diagnosis: Principal (10) Hyperkalemia ICD Code: E87.5 - Hyperkalemia Diagnosis: Principal Status: Acute (11) Metabolic acidosis ICD Code: E87.2 - Acidosis Diagnosis: Principal Procedures Incision and drainage of perirectal abscesses under anesthesia. Brief History - From Admission This is a 56-year-old male with past medical history significant for insulin- dependent diabetes mellitus, hypertension who presents to [facility] complaining of left-sided buttock pain and swelling for 2 weeks. The patient is status post surgical station and drainage and cannot give very good history at this moment. History obtained from medical records. The patient states that he saw 2 weeks ago but he could not remember his name. The patient however denies any fevers or chills, patient as per records has history of chronic kidney disease, denies any injury or fall. Denies any chest pain, short of breath, denies nausea, denies vomiting, denies abdominal pain, denies dysuria. CBC/BMP: 03/08/17 0555 03/08/17 0555 Significant Findings Laboratory Tests Test 03/06/17 10:31 03/06/17 17:26 03/07/17 06:23 03/07/17 16:39 White Blood Count 27.2 TH/MM3 (4.0-11.0) 22.0 TH/MM3 (4.0-11.0) 22.2 TH/MM3 (4.0-11.0) 17.9 TH/MM3 (4.0-11.0) Red Blood Count 3.48 MIL/MM3 (4.50-5.90) 3.23 MIL/MM3 (4.50-5.90) 3.60 MIL/MM3 (4.50-5.90) 3.81 MIL/MM3 (4.50-5.90) Hemoglobin 10.3 GM/DL (13.0-17.0) 9.8 GM/DL (13.0-17.0) 10.7 GM/DL (13.0-17.0) 11.3 GM/DL (13.0-17.0) Hematocrit 31.6 % (39.0-51.0) 29.0 % (39.0-51.0) 32.7 % (39.0-51.0) 34.7 % (39.0-51.0) Neutrophils (%) (Auto) 87.5 % (16.0-70.0) 88.3 % (16.0-70.0) 80.0 % (16.0-70.0) Lymphocytes (%) (Auto) 7.4 % (9.0-44.0) 6.6 % (9.0-44.0) Neutrophils # (Auto) 23.8 TH/MM3 (1.8-7.7) 19.4 TH/MM3 (1.8-7.7) 17.8 TH/MM3 (1.8-7.7) 11.2 TH/MM3 (1.8-7.7) Monocytes # (Auto) 1.3 TH/MM3 (0-0.9) 1.1 TH/MM3 (0-0.9) 1.9 TH/MM3 (0-0.9) 2.5 TH/MM3 (0-0.9) Blood Urea Nitrogen 22 MG/DL (7-18) 24 MG/DL (7-18) 22 MG/DL (7-18) Creatinine 2.57 MG/DL (0.60-1.30) 2.33 MG/DL (0.60-1.30) 2.22 MG/DL (0.60-1.30) Random Glucose 208 MG/DL (74-106) 193 MG/DL (74-106) 119 MG/DL (74-106) Albumin 2.0 GM/DL (3.4-5.0) 1.9 GM/DL (3.4-5.0) 2.1 GM/DL (3.4-5.0) Alkaline Phosphatase 163 U/L (45-117) 145 U/L (45-117) 166 U/L (45-117) Alanine Aminotransferase (ALT/SGPT) 10 U/L (12-78) Sodium Level 134 MEQ/L (136-145) 135 MEQ/L (136-145) Potassium Level 5.7 MEQ/L (3.5-5.1) 5.5 MEQ/L (3.5-5.1) Carbon Dioxide Level 18.3 MEQ/L (21.0-32.0) 18.7 MEQ/L (21.0-32.0) 17.5 MEQ/L (21.0-32.0) Estimat Glomerular Filtration Rate 31 ML/MIN (>89) 35 ML/MIN (>89) 37 ML/MIN (>89) Total Protein 6.3 GM/DL (6.4-8.2) Calcium Level 8.2 MG/DL (8.5-10.1) Chloride Level 109 MEQ/L (98-107) 109 MEQ/L (98-107) Monocytes (%) (Auto) 8.5 % (0.0-8.0) 14.1 % (0.0-8.0) Acanthocytes 1+ (NORMAL) Aspartate Amino Transf (AST/SGOT) 52 U/L (15-37) Test 03/08/17 05:55 White Blood Count 12.0 TH/MM3 (4.0-11.0) Red Blood Count 3.46 MIL/MM3 (4.50-5.90) Hemoglobin 10.3 GM/DL (13.0-17.0) Hematocrit 31.2 % (39.0-51.0) Monocytes (%) (Auto) 13.6 % (0.0-8.0) Monocytes # (Auto) 1.6 TH/MM3 (0-0.9) Blood Urea Nitrogen 23 MG/DL (7-18) Creatinine 2.29 MG/DL (0.60-1.30) Random Glucose 137 MG/DL (74-106) Total Protein 6.0 GM/DL (6.4-8.2) Albumin 1.9 GM/DL (3.4-5.0) Calcium Level 8.4 MG/DL (8.5-10.1) Alkaline Phosphatase 134 U/L (45-117) Aspartate Amino Transf (AST/SGOT) 49 U/L (15-37) Chloride Level 109 MEQ/L (98-107) Carbon Dioxide Level 18.3 MEQ/L (21.0-32.0) Estimat Glomerular Filtration Rate 36 ML/MIN (>89) Imaging Last Impressions Renal Ultrasound 03/05/17 0000 Signed Impressions: Service Date/Time: Sunday, March 05, 2017 10:07 - CONCLUSION: Kidneys are unremarkable. Bladder is decompressed with Rodgers. There is free fluid in the pelvis. Domingo Britton MD Chest X-Ray 03/04/17 0000 Signed Impressions: Service Date/Time: Saturday, March 04, 2017 19:36 - CONCLUSION: No acute disease. Domingo Nelson MD Pelvis CT 03/03/17 0000 Signed Impressions: Service Date/Time: Friday, March 03, 2017 07:06 - CONCLUSION: 1. Bilateral perirectal abscess these seen within the posterior soft tissue. The one of the left is larger measuring 6.2 x 7.0 cm. 2. Small amount of pelvic ascites. 3. Air in the urinary bladder to be iatrogenic versus less likely infection or fistula formation. Cecil Tavares MD PE at Discharge GENERAL: Alert and Oriented x 3, NO acute distress. SKIN: Warm and dry. HEAD: Atraumatic. Normocephalic. EYES: Pupils equal and round. No scleral icterus. No injection or drainage. ENT: No nasal bleeding or discharge. Mucous membranes pink and moist. NECK: Trachea midline. No JVD. CARDIOVASCULAR: Regular rate and rhythm. RESPIRATORY: Decreased breath sounds bilateral, no wheezing or crackles. GASTROINTESTINAL: Abdomen soft, non-tender, nondistended. Hepatic and splenic margins not palpable. MUSCULOSKELETAL: Extremities without clubbing, cyanosis, or edema. No obvious deformities. NEUROLOGICAL: Awake and alert. No obvious cranial nerve deficits. PSYCHIATRIC: Appropriate mood and affect; insight and judgment normal. Hospital Course This is a 56-year-old male with past medical history significant for insulin- dependent diabetes mellitus, hypertension who presents to [facility] complaining of left-sided buttock pain and swelling for 2 weeks. The patient is status post surgical station and drainage and cannot give very good history at this moment. History obtained from medical records. The patient states that he saw 2 weeks ago but he could not remember his name. The patient however denies any fevers or chills, patient as per records has history of chronic kidney disease, denies any injury or fall. Denies any chest pain, short of breath, denies nausea, denies vomiting, denies abdominal pain, denies dysuria. Patient stable seen in his bedroom, and discussed with Nurse as per Nephrology specialist okay to discharge and follow with Doctor Silverio Mcfarlane in one week. Assessment and Plan 1. Severe Sepsis, had Leukocytosis and tachycardia, status post I and D by Colorectal Surgery, on IV Ciprofloxacin and IV Flagyl also given Clindamycin in Emergency department, IV fluids given, stable blood cultures growing gram positive cocci in pairs and clusters, wound cultures growing gram negative rods. as per ID recommended Levaquin and Flagyl by mouth, scripts in chart. 2. Left Buttock Abscess status post I and D by Doctor Wong 3. Diabetes Mellitus II, will continue Levemir for basal insulin and continue sliding scale. 4. Hypertension stable on antihypertensives. 5. Hyperlipidemia on Statins. 6. Acute Kidney Injury on chronic kidney disease Stage III Nephrology specialist following, today recommended to discharge and follow by Doctor Silverio Mcfarlane, 7. Hypercalcemia replaced 8. Hyperkalemia Improved recommended by Nephrology for discharge and follow. Assessment and Plan Gi prophylaxis - PPI DVT prophylaxis - SCD's Discharge Planning Okay by Nephrology to discharge today Home with [facility] Pt Condition on Discharge: Good Discharge Disposition: Disch w/ Home Health Serv Discharge Time: > 30 minutes Discharge Instructions DIET: Follow Instructions for: Diabetic Diet, Renal Failure Diet Activities you can perform: Regular-No Restrictions Ty Quarles MD Mar 08, 2017 14:56
[2017-03-08 16:00] VITALS: BP 102/58; PULSE 91; RESP 16; TEMP 98.4; O2SAT 98
--- NOTE | 2017-03-26 09:26 | PQ ---
Physician Query Response Document PATIENT: GERARDO HOLDEN : 1960 ADMIT DATE: 03/03/2017 9:51 AM DISCH DATE: 03/08/2017 5:24 PM RESPONDING PROVIDER #: [email or web address] QUERY TEXT: Debridement Type Based on your medical judgment, can you further clarify the precise methods of wound debridement util ized in this case, such as: --EXCISIONAL debridement --NON-EXCISIONAL debridement --Other debridement --Other Specify PLEASE CALL [facility] @ [facility] [id number] FOR ASSISTANCE The patient's Clinical Indicators include: PER OPERATIVE REPORT: After further debridement of some necrotic fat, hemostasis was achieved Query created by: Cathy Rodarte on 03/06/2017 9:39 AM RESPONSE TEXT: Excisional debridement Electronically signed by: Howie Wong MD 03/26/2017 9:22 AM
== END 2017-03-08 17:24 | disposition home health service (06) | DRG 854 ==
LOC: NEPC 05:34 → NEDA 09:51 → HOCB 11:33
PROVIDERS: ADMIT Internal Medicine; ATTEND Internal Medicine
PROC: 0J9B0ZX Drainage of Perineum Subcutaneous Tissue and Fascia, Open Approach, Diagnostic (ICD-10-PCS; 2017-03-03)
PROC: 0JB90ZZ Excision of Buttock Subcutaneous Tissue and Fascia, Open Approach (ICD-10-PCS; principal; 2017-03-05)
DX: A41.9 Sepsis, unspecified organism (principal); E87.2 Acidosis; E11.22 Type 2 diabetes mellitus with diabetic chronic kidney disease; N17.9 Acute kidney failure, unspecified; N18.3 Chronic kidney disease, stage 3 (moderate); E87.1 Hypo-osmolality and hyponatremia; K61.3 Ischiorectal abscess; E11.65 Type 2 diabetes mellitus with hyperglycemia; E83.51 Hypocalcemia; E87.5 Hyperkalemia; I12.9 Hypertensive chronic kidney disease with stage 1 through stage 4 chronic kidney disease, or unspecified chronic kidney disease; K21.9 Gastro-esophageal reflux disease without esophagitis; B19.20 Unspecified viral hepatitis C without hepatic coma; F17.210 Nicotine dependence, cigarettes, uncomplicated; M19.90 Unspecified osteoarthritis, unspecified site; G47.30 Sleep apnea, unspecified; I25.10 Atherosclerotic heart disease of native coronary artery without angina pectoris; R65.20 Severe sepsis without septic shock; E78.5 Hyperlipidemia, unspecified; K64.9 Unspecified hemorrhoids; Z23 Encounter for immunization; Z79.4 Long term (current) use of insulin; I25.2 Old myocardial infarction
CPT/HCPCS: 71010; 72192; 76775; 76937; 80048; 80053; 82948; 83605; 83735; 84100; 85007; 85025; 85027; 85610; 85730; 86403; 86850; 86900; 86901; 87015; 87040; 87070; 87077; 87102; 87116; 87186; 87205; 87206; 90471; 90472; 90686; 90732; 93005; 94150; 94640; 94664; 96365; 96366; C9113; G0008; G0009; J0610; J0690; J0744; J1815; J2250; J2270; J2405; J2543; J2710; J3010; J3370; J3480; J7030; J7050; J7512; Q2038

== ENCOUNTER 2017-04-14 17:04 | Inpatient (IN) | payer MEDICARE, OTHER ==
[~2017-04-14] VITALS: Ht 175.3 cm; Wt 70.0 kg
[~2017-04-14 17:04] MED LIST changes: -ASPI1TAB69 PO; +CIPR500T2 PO; -HYDR-3534 PO; +LEVEMIR SQ; -LISI10TA3 PO; -MEGE40SU PO; +METR-1 PO; -NATU400T PO; -OMEP20TA PO; +OMEP20TA93 PO; -VITA500T PO
[2017-04-14 17:12] VITALS: BP 135/82; PULSE 95; RESP 15; TEMP 99.3; O2SAT 98
[2017-04-14] MEDS ORDERED: ATOR40TA16 PO (17:40)
[2017-04-14] MEDS ORDERED: OMEP20TA93 PO (17:40)
[2017-04-14] MEDS ORDERED: GABA300C5 PO (17:40)
[2017-04-14] MEDS ORDERED: LISI-515 PO (17:40)
[2017-04-14] MEDS ORDERED: MIRTA15 PO (17:40)
[2017-04-14] MEDS ORDERED: ASPI-516 CHEW (17:40)
[2017-04-14] MEDS ORDERED: PROP20TA3 PO (17:40)
[2017-04-14] MEDS ORDERED: OXYC1CAP PO (17:40)
[2017-04-14 18:03] LABS: AUTOMATED NEUTROPHIL # 8.2 TH/MM3 (1.8-7.7); BASOPHIL % 0.2 % (0.0-2.0); EOSINOPHIL # 0.1 TH/MM3 (0-0.4); EOSINOPHIL % 0.7 % (0.0-4.0); HEMATOCRIT 36.8 % (39.0-51.0); HEMO FLAGS DIFF FINAL; LYMPH % 18.8 % (9.0-44.0); LYMPHOCYTE # 2.2 TH/MM3 (1.0-4.8); MEAN CELL VOLUME 92.8 FL (80.0-100.0); MEAN CORPUSCULAR HEMOGLOBIN 30.5 PG (27.0-34.0); MEAN CORPUSCULAR HGB CONC 32.8 % (32.0-36.0); MONO % 10.5 % (0.0-8.0); NEUT % 69.8 % (16.0-70.0); PLATELET COUNT 105 TH/MM3 (150-450); RED BLOOD COUNT 3.96 MIL/MM3 (4.50-5.90); RED CELL DISTRIBUTION WIDTH 15.1 % (11.6-17.2); WHITE BLOOD COUNT 11.8 TH/MM3 (4.0-11.0)
[2017-04-14 18:10] LABS: ANION GAP 10 MEQ/L (5-15); AST (GOT) 22 U/L (15-37); BICARBONATE 18.9 MEQ/L (21.0-32.0); BLOOD UREA NITROGEN 10 MG/DL (7-18); CHLORIDE 109 MEQ/L (98-107); GLOMERULAR FILTRATION RATE 49 ML/MIN (>89); POTASSIUM 3.4 MEQ/L (3.5-5.1); SODIUM (NA) 138 MEQ/L (136-145)
[2017-04-14 18:11] LABS: ALT (GPT) 14 U/L (12-78)
[2017-04-14 18:13] LABS: ALKALINE PHOSPHATASE 108 U/L (45-117); TOTAL BILIRUBIN ADULT 0.9 MG/DL (0.2-1.0)
[2017-04-14 19:25] LABS: BACTERIA, URINE RARE /hpf; BLOOD, URINE NEG (NEG); COMMENT (UR) CULT NOT INDICATED; CULTURE IF INDICATED CULT NOT INDICATED; GLUCOSE,URINE NEG (NEG); KETONE, URINE NEG (NEG); MUCUS URINE FEW /lpf (OCC); NITRITE,URINE NEG (NEG); URINE COLOR YELLOW (YELLW/STRAW)
--- NOTE | 2017-04-14 20:37 | PD ---
HPI Chief Complaint: Abdominal Pain Time Seen by Provider: 20:34 Travel History International Travel<30 days: No Contact w/Intl Traveler<30days: No Traveled to known affect area: No History of Present Illness HPI The patient is a 56 year old male who presents to the [facility] [address] emergency department with a history of abdominal pain that began 1 and 1/2 months ago. It has been coming and going. It became constant 1 and 1/2 weeks ago. The pain is in the lower abdomen and is worse on the right compared to the left. He underwent incision and drainage of perirectal abscess by Dr. Wong recently and was discharged from the hospital in early March. He last had a follow up appt. approximately 3 weeks ago. His abdominal pain is worse with eating. He completed antibiotic in mid March. He is having nausea. He has had diarrhea 20 x per day for the last 2 days. His diarrhea began in mid March. He has blood in his stool. He began to have bloody stool a week ago that is getting worse with time. On review of systems, he denies having any fevers, no worsening cough or congestion, neck pain, chest pain, worsening shortness of breath or neurologic symptoms. He has urinary frequency and urgency for the last week. PCP: Dr. Batres. [facility] Past Medical History Narrative Medical The Patient's past medical history is significant for diabetes, chronic bronchitis, CAD, hypertension, chronic kidney disease on hemodialysis which was discontinued approximately a year ago, GERD, tobacco use, arthritis, PA x2, sleep apnea. Hx Anticoagulant Therapy: Yes Cancer: No Cardiovascular Problems: Yes (PA) COPD: Yes Cerebrovascular Accident: No Diabetes: Yes (IDDM) Patient Takes Glucophage: No Diminished Hearing: No Endocrine: Yes Gastrointestinal Disorders: Yes (GERD) GERD: Yes Genitourinary: No Hepatitis: Yes (hep C) Hiatal Hernia: No Hypertension: Yes Immune Disorder: No Musculoskeletal: Yes ( ARTHRITIS IN SHOULDERS & BACK & NECK) Neurologic: Yes (states in accident years ago and had spine, neck injuries chronic pain) Psychiatric: No Reproductive: No Respiratory: Yes (SLEEP APNEA) Migraines: Yes Myocardial Infarction: Yes (X 2) Thyroid Disease: No Past Surgical History Narrative Surgical The patient's past surgical history is significant for left knee surgery, AV fistula, incision and drainage of bilateral rectal abscesses, perirectal abscesses. Abdominal Surgery: No AICD: No Body Medical Devices: AV FISTULA TO RUE, VAS CATH TO RIGHT CHEST Cardiac Surgery: No Ear Surgery: No Endocrine Surgery: No Genitourinary Surgery: No Joint Replacement: Yes (SCREW PLACED/REMOVED in left knee) Pacemaker: No Thoracic Surgery: No Other Surgery: Yes (AV FISTULA R ARM) Social History Alcohol Use: No Tobacco Use: Yes (6-7 cigarettes per day) Substance Use: No Allergies-Medications (Allergen,Severity, Reaction): Coded Allergies: Penicillins (Verified Allergy, Severe, Throat closes up, 03/05/17) cetirizine (Unverified Allergy, Severe, RASH, 01/14/17) shellfish derived (Unverified Allergy, Intermediate, 01/14/17) fish and shellfish Reported Meds & Prescriptions Reported Meds & Active Scripts Active Reported Gabapentin 300 Mg Cap 300 Mg PO HS Omeprazole 20 Mg Tab 20 Mg PO DAILY Propranolol (Propranolol HCl) 20 Mg Tab 20 Mg PO Q12HR Mirtazapine 15 Mg Tab 15 Mg PO HS Atorvastatin (Atorvastatin Calcium) 40 Mg Tab 40 Mg PO HS Oxycodone (Oxycodone HCl) 5 Mg Cap 5 Mg PO TID PRN Aspirin 81 Mg Chew 81 Mg CHEW DAILY Lisinopril 20 Mg Tab 20 Mg PO DAILY Review of Systems Except as stated in HPI: all other systems reviewed are Neg General / Constitutional: No: Fever Eyes: No: Visual changes HENT: No: Headaches Cardiovascular: No: Chest Pain or Discomfort Respiratory: Positive: Cough, No: Shortness of Breath Gastrointestinal: Positive: Nausea, Diarrhea, Abdominal Pain, Hematochezia, Changes in Bowel Habits, No: Vomiting, Hematemesis, Indigestion, Loss of Appetite Genitourinary: Positive: Urgency, Frequency, No: Dysuria Musculoskeletal: No: Pain Skin: No Rash Neurologic: No: Weakness Psychiatric: No: Depression Endocrine: No: Polydipsia Hematologic/Lymphatic: No: Easy Bruising Physical Exam Narrative General: The patient is a well-developed well-nourished male in no acute distress. Head and Neck exam: Head is normocephalic atraumatic. Eyes: EOMI, pupils are equal round and reactive to light. Nose: Midline septum with pink mucous membranes Mouth: Dentition unremarkable. Moist mucus membranes. Posterior oropharynx is not erythematous. No tonsillar hypertrophy. Uvula midline. Airway patent. Neck: No palpable lymphadenopathy. No nuchal rigidity. No thyromegaly. Cardiovascular: Regular rate and rhythm without murmurs, gallops, or rubs. Lungs: Clear to auscultation bilaterally. No wheezes, rhonchi, or rales. Abdomen: Soft, with tenderness on palpation of the suprapubic area and right lower quadrant of the abdomen. No guarding, rebound, or rigidity. Negative [place] sign. Normal bowel sounds are audible. No point tenderness specifically on palpation over McBurney's point. Extremities: No clubbing, cyanosis, or edema. 2+ pulses in all 4 extremities. No calf tenderness on palpation. Right upper extremity with AV fistula palpated with palpable thrill. Back: No spinous process tenderness to palpation. The patient has right-sided CVA tenderness on palpation. Neurologic Exam: Grossly nonfocal. Skin Exam: On examination of the patient's buttock area the patient is noted to have 2, clean, dry, intact bandages in place. These were removed by me and he was noted to have clean incisions with pink granulation tissue, no active drainage. No surrounding edema or erythema. No surrounding warmth or tenderness to touch. Intact skin that is warm and dry. Data Data Last Documented VS Vital Signs Date Time Temp Pulse Resp B/P (MAP) Pulse Ox O2 Delivery O2 Flow Rate FiO2 04/14/17 17:12 99.3 95 15 135/82 (99) 98 Room Air Orders Orders Complete Blood Count With Diff (04/14/17 17:21) Comprehensive Metabolic Panel (04/14/17 17:21) Urinalysis - C+S If Indicated (04/14/17 17:21) Iv Access Insert/Monitor (04/14/17 17:21) Oxygen Administration (04/14/17 17:21) Oximetry (04/14/17 17:21) Lipase (04/14/17 17:21) Ct Abd/Pel W Iv Contrast(Rout) (04/14/17 20:48) Prothrombin Time / Inr (Pt) (04/14/17 20:59) Act Partial Throm Time (Ptt) (04/14/17 20:59) Blood Culture (04/14/17 20:59) Enteric Path (Stool) (04/14/17 20:59) C Diff Toxin Pcr (04/14/17 20:59) Chest, Single Ap (04/14/17 20:59) Ecg Monitoring (04/14/17 20:59) Type And Screen (04/14/17 20:59) Stool Wbc (Leukocytes) (04/14/17 20:59) Sodium Chlor 0.9% 1000 Ml Inj (Ns 1000 M (04/14/17 21:00) Ondansetron Inj (Zofran Inj) (04/14/17 21:00) Iohexol 350 Inj (Omnipaque 350 Inj) (04/14/17 21:48) Potassium Chloride (Kcl) (04/14/17 22:15) Metronidazole 500 Mg Inj (Flagyl 500 Mg (04/14/17 23:15) Admit Order (Ed Use Only) (04/14/17 23:05) Labs Laboratory Tests Test 04/14/17 17:35 04/14/17 18:38 04/14/17 20:00 04/14/17 21:15 White Blood Count 11.8 TH/MM3 Red Blood Count 3.96 MIL/MM3 Hemoglobin 12.1 GM/DL Hematocrit 36.8 % Mean Corpuscular Volume 92.8 FL Mean Corpuscular Hemoglobin 30.5 PG Mean Corpuscular Hemoglobin Concent 32.8 % Red Cell Distribution Width 15.1 % Platelet Count 105 TH/MM3 Mean Platelet Volume 8.4 FL Neutrophils (%) (Auto) 69.8 % Lymphocytes (%) (Auto) 18.8 % Monocytes (%) (Auto) 10.5 % Eosinophils (%) (Auto) 0.7 % Basophils (%) (Auto) 0.2 % Neutrophils # (Auto) 8.2 TH/MM3 Lymphocytes # (Auto) 2.2 TH/MM3 Monocytes # (Auto) 1.2 TH/MM3 Eosinophils # (Auto) 0.1 TH/MM3 Basophils # (Auto) 0.0 TH/MM3 CBC Comment DIFF FINAL Differential Comment Blood Urea Nitrogen 10 MG/DL Creatinine 1.75 MG/DL Random Glucose 226 MG/DL Total Protein 6.7 GM/DL Albumin 2.5 GM/DL Calcium Level 8.6 MG/DL Alkaline Phosphatase 108 U/L Aspartate Amino Transf (AST/SGOT) 22 U/L Alanine Aminotransferase (ALT/SGPT) 14 U/L Total Bilirubin 0.9 MG/DL Sodium Level 138 MEQ/L Potassium Level 3.4 MEQ/L Chloride Level 109 MEQ/L Carbon Dioxide Level 18.9 MEQ/L Anion Gap 10 MEQ/L Estimat Glomerular Filtration Rate 49 ML/MIN Lipase 106 U/L Urine Color YELLOW Urine Turbidity HAZY Urine pH 6.0 Urine Specific [place] 1.008 Urine Protein 30 mg/dL Urine Glucose (UA) NEG mg/dL Urine Ketones NEG mg/dL Urine Occult Blood NEG Urine Nitrite NEG Urine Bilirubin NEG Urine Urobilinogen LESS THAN 2.0 MG/DL Urine Leukocyte Esterase NEG Urine RBC LESS THAN 1 /hpf Urine WBC 1 /hpf Urine Amorphous Sediment FEW Urine Bacteria RARE /hpf Urine Mucus FEW /lpf Microscopic Urinalysis Comment CULT NOT INDICATED Prothrombin Time 12.8 SEC Prothromb Time International Ratio 1.2 RATIO Activated Partial Thromboplast Time 33.[address] [facility] Medical Decision Making Medical Screen Exam Complete: Yes Emergency Medical Condition: Yes Medical Record Reviewed: Yes Interpretation(s) Last Impressions Chest X-Ray 04/14/172058 Signed Impressions: Service Date/Time: Friday, April 14, 2017 21:01 - CONCLUSION: Normal examination. Free air is not seen. Domingo Nelson MD Differential Diagnosis Diverticulitis, versus pyelonephritis, versus diverticular abscess, versus bowel perforation, versus C. difficile colitis Narrative Course During the course of the patients emergency department visit, the patients history, examination, and differential diagnosis were reviewed with the patient. The patient was placed on a quality assurance monitor final with oximetry and frequent blood pressure monitoring. The patient had IV access obtained and blood work sent for analysis. Stool studies were ordered including a C. difficile toxin. The patient was initially provided normal saline 1 L IV fluid bolus. The patients laboratory studies were reviewed and remarkable for a white count of 11.8, hemoglobin 12.1, platelets 105 with 10.5 monocytes, CMP is remarkable for potassium of 3.4, chloride 109, CO2 18.9, creatinine 1.75, glucose 226, albumin 2.5, lipase 106, urinalysis shows 30 protein rare bacteria. Radiology studies were reviewed and remarkable for a chest x-ray that shows no acute cardiopulmonary disease, no free air. CT scan of the abdomen and pelvis shows a diffuse colitis. Gallstones are noted. Given the patient's recent antibiotic use I am concerned about the possibility of C. difficile colitis. The patient was given Flagyl 500 mg IV. The patient had stool studies ordered. The patient will be admitted for IV fluids and antibiotic. The patients results were discussed with the patient, including the plan of care. I explained that further testing and/ or monitoring is indicated based on the patients history, examination, and/ or laboratory findings. Therefore, I recommended admission for additional evaluation. The patient expressed understanding and was agreeable with this plan. The patient was admitted to the hospital in stable condition and sent to a bed under the care of the [facility] service. Physician Communication Physician Communication The patient's case including history, pertinent physical examination findings, and laboratory studies were discussed with Dr. Simmons. It was agreed that the patient would be admitted to the [facility] service. Diagnosis Primary Impression: Abdominal pain Qualified Codes: R10.84 - Generalized abdominal pain Additional Impression: Colitis Admitting Information Admitting Physician Requests: Kaitlynn Seay MD Apr 14, 2017 20:37
[2017-04-14] MEDS ORDERED: SODIUM CHLOR 0.9% 1000 ML INJ 1,000 ML IV ONE (21:00)
[2017-04-14] MEDS ORDERED: ONDANSETRON HCL 4 MG/2 ML VIAL IV ONE (21:00)
[2017-04-14] MEDS ORDERED: IOHEXOL 350 MG/ML 10 ML VIAL (for RAD DIAG) IVCONTRAST ONE (21:48)
[2017-04-14] MEDS ORDERED: POTASSIUM CHLORIDE 20 MEQ CONTROLLED RELEASE TAB PO ONE (22:15)
--- NOTE | 2017-04-14 22:17 | RADRPT ---
EXAM DATE/TIME: 04/14/2017 21:01 [facility] COMPARISON: CHEST SINGLE AP, March 04, 2017, 19:36. INDICATIONS : Free air MEDICAL HISTORY : Myocardial infarction. Arthritis. Hepatitis C. Migraines. Coronary artery disease. SURGICAL HISTORY : Reattached retina. Dialysis. Orthopedic surgery, left knee. AV Fistula right arm ENCOUNTER: Initial ACUITY: 2 weeks PAIN SCORE: 4/10 LOCATION: Bilateral chest FINDINGS: A single view of the chest demonstrates the lungs to be symmetrically aerated without evidence of mas s, infiltrate or effusion. The cardiomediastinal contours are unremarkable. Osseous structures are intact. CONCLUSION: Normal examination. Free air is not seen. Domingo Nelson MD on April 14, 2017 at 22:15 Board Certified Radiologist. This report was verified electronically.
[2017-04-14 22:21] LABS: APTT (PATIENT) 33.6 SEC (24.3-30.1); INTERNATIONAL NORMALIZED RATIO 1.2 RATIO; PROTHROMBIN TIME - PATIENT 12.8 SEC (9.8-11.6)
--- NOTE | 2017-04-14 23:00 | RADRPT ---
EXAM DATE/TIME: 04/14/2017 21:45 [facility] COMPARISON: No previous studies available for comparison. INDICATIONS : Medial abdominal pain with bloody stool. IV CONTRAST: 90 cc Omnipaque 350 (iohexol) IV ORAL CONTRAST: No oral contrast ingested. RADIATION DOSE: 6.58 CTDIvol (mGy) MEDICAL HISTORY : Cardiovascular disease. Gastroesophageal reflux disease. Chronic obstructive pu lmonary disease. Myocardial infarction. CAD. Hypertension. Diabetes. SURGICAL HISTORY :None. ENCOUNTER: Initial ACUITY: 1 month PAIN SCALE: 7/10 LOCATION: Medial abdomen TECHNIQUE: Volumetric scanning of the abdomen and pelvis was performed. Using automated exposure control and adjustment of the mA and/or kV according to patient size, radiation dose was kept as low as reasonably achievable to obtain optimal diagnostic quality images. DICOM format image data is av ailable electronically for review and comparison. FINDINGS: Much of the colon appears thickened. There is some inflammatory change seen around the colon. The liver appears diffusely abnormal with hypertrophy at the left lobe and atrophy of the right lobe. The liver does demonstrate a nodular surface concerning for cirrhosis. There does appear to be rec analized paraumbilical vein typically seen with portal hypertension. Calcified gallstones are seen i n the gallbladder. The spleen appears grossly normal. The pancreas, adrenal glands and kidneys are unremarkable. The aorta and IVC are unremarkable. There is a prostatic calcification otherwise the p elvic structures appear grossly intact. There is a mild amount of ascites seen around the liver and in the right paracolic gutter region. The lung bases are grossly clear. The bony structures are unr emarkable. CONCLUSION: 1. Diffuse colitis. 2. Gallstones. Domingo Nelson MD on April 14, 2017 at 22:51 Board Certified Radiologist. This report was verified electronically.
[2017-04-14] MEDS ORDERED: metroNIDAZOLE 500 MG INJ 100 ML IV ONE (23:15)
[2017-04-15] VITALS (12 sets, daily range): BP systolic 110–131; BP diastolic 57–80; PULSE 69–90; RESP 16–18; TEMP 96.6–98.8; O2SAT 96–100
[2017-04-15] MEDS ORDERED: ACETAMINOPHEN 325 MG TAB PO PRN
[2017-04-15] MEDS ORDERED: NALOXONE HCL 0.4 MG/ML AMP IV PUSH PRN
[2017-04-15] MEDS ORDERED: ONDANSETRON HCL 4 MG/2 ML VIAL IVP PRN
[2017-04-15] MEDS ORDERED: SODIUM CHLORIDE 0.9% FLUSH 10 ML FLUSH IV FLUSH PRN
[2017-04-15 00:46] LABS: C. DIFF EPI 027 PRESUMPTIVE NEGATIVE (NEGATIVE)
[2017-04-15] MEDS ORDERED: ENOXAPARIN SODIUM 40 MG/0.4 ML SYRINGE SQ SCH (01:00)
[2017-04-15] MEDS ORDERED: DEXTROSE 50% IN WATER 50 ML VIAL(D50) IV PUSH PRN (03:30)
[2017-04-15] MEDS ORDERED: GLUCAGON 1 MG/ML VIAL OTHER PRN (03:30)
--- NOTE | 2017-04-15 03:34 | HHI.HP ---
[facility] Service [facility] Primary Care Physician Domingo Batres, DO Admission Diagnosis Colitis, suspected C diff, bloody diarrhea Diagnoses: Travel History International Travel<30 Days: No Contact w/Intl Traveler <30 Da: No Traveled to Known Affected Are: No History of Present Illness 56-year-old male with a past medical history significant for insulin-dependent diabetes mellitus, coronary artery disease and hypertension who presents to the emergency department with a 1 month history of diarrhea. The patient [place] [facility] [place] he was admitted for sepsis related to the left buttock abscess. He is status post I&D by Dr. Wong. He states he has had diarrhea since his discharge however his abdominal pain and diarrhea has been worsening over the past week. He now reports blood in his stools. He states he had diarrhea approximately 20 times yesterday. He denies fever/chills. Endorses nausea. On last admission he was treated with multiple antibiotics including Flagyl, clindamycin and Levaquin. He has daily dressing changes with a home health nurse for his perirectal abscess which is healing well. He has a mild leukocytosis of 11.8, UA is unremarkable, chest x-ray within normal limits, CT of the abdomen and pelvis significant for diffuse colitis. H&H is 12.1/36.8. Review of Systems Denies fever or chills Denies blurry vision, otorrhea, rhinorrhea Denies sore throat and cough No chest pain, palpitations, shortness of breath Positive abdominal pain Positive nausea and diarrhea with bloody stools Denies muscle pain/weakness No rashes Past Family Social History Past Medical History Insulin-dependent diabetes mellitus CAD Hypertension CKD GERD Osteoarthritis Sleep apnea GA 2 History of acute on chronic renal failure requiring dialysis in 2016 Past Surgical History AV fistula right arm IND perirectal abscess Cataract surgery Left knee surgery Reported Medications Reported Meds & Active Scripts Active Reported Gabapentin 300 Mg Cap 300 Mg PO HS Omeprazole 20 Mg Tab 20 Mg PO DAILY Propranolol (Propranolol HCl) 20 Mg Tab 20 Mg PO Q12HR Mirtazapine 15 Mg Tab 15 Mg PO HS Atorvastatin (Atorvastatin Calcium) 40 Mg Tab 40 Mg PO HS Oxycodone (Oxycodone HCl) 5 Mg Cap 5 Mg PO TID PRN Aspirin 81 Mg Chew 81 Mg CHEW DAILY Lisinopril 20 Mg Tab 20 Mg PO DAILY Allergies: Coded Allergies: Penicillins (Verified Allergy, Severe, Throat closes up, 03/05/17) cetirizine (Unverified Allergy, Severe, RASH, 01/14/17) shellfish derived (Unverified Allergy, Intermediate, 01/14/17) fish and shellfish Family History Patient does not know his family history Social History Smokes a half a pack per day 32 years. Denies alcohol, marijuana or illicit drugs Physical Exam Vital Signs Vital Signs Date Time Temp Pulse Resp B/P (MAP) Pulse Ox O2 Delivery O2 Flow Rate FiO2 04/15/17 01:43 98.4 72 18 128/74 (92) 97 04/15/17 01:34 80 04/15/17 00:19 16 97 Room Air 04/15/17 00:19 97 Room Air 04/15/17 00:19 04/14/17 17:12 99.3 95 15 135/82 (99) 98 Room Air Physical Exam GENERAL: male lying in bed SKIN: Two incisions with pink granulation tissue, no active drainage on the buttock region. Dressings intact. No surrounding erythema or induration. HEAD: Atraumatic. Normocephalic. No temporal or scalp tenderness. EYES: Pupils equal round and reactive. Extraocular motions intact. No scleral icterus. No injection or drainage. ENT: Nose without bleeding, purulent drainage or septal hematoma. Throat without erythema, tonsillar hypertrophy or exudate. Uvula midline. Airway patent. NECK: Trachea midline. No JVD or lymphadenopathy. Supple, nontender, no meningeal signs. CARDIOVASCULAR: Regular rate and rhythm without murmurs, gallops, or rubs. RESPIRATORY: Clear to auscultation. Breath sounds equal bilaterally. No wheezes , rales, or rhonchi. GASTROINTESTINAL: Abdomen soft, diffusely tender to palpation, nondistended. No hepato-splenomegaly, or palpable masses. No guarding. MUSCULOSKELETAL: Extremities without clubbing, cyanosis, or edema. No joint tenderness, effusion, or edema noted. No calf tenderness. NEUROLOGICAL: Awake and alert. Cranial nerves II through XII intact. Motor and sensory grossly within normal limits. Normal speech. Laboratory Laboratory Tests Test 04/14/17 17:35 04/14/17 18:38 04/14/17 20:00 04/14/17 21:15 White Blood Count 11.8 Red Blood Count 3.96 Hemoglobin 12.1 Hematocrit 36.8 Mean Corpuscular Volume 92.8 Mean Corpuscular Hemoglobin 30.5 Mean Corpuscular Hemoglobin Concent 32.8 Red Cell Distribution Width 15.1 Platelet Count 105 Mean Platelet Volume 8.4 Neutrophils (%) (Auto) 69.8 Lymphocytes (%) (Auto) 18.8 Monocytes (%) (Auto) 10.5 Eosinophils (%) (Auto) 0.7 Basophils (%) (Auto) 0.2 Neutrophils # (Auto) 8.2 Lymphocytes # (Auto) 2.2 Monocytes # (Auto) 1.2 Eosinophils # (Auto) 0.1 Basophils # (Auto) 0.0 CBC Comment DIFF FINAL Differential Comment Blood Urea Nitrogen 10 Creatinine 1.75 Random Glucose 226 Total Protein 6.7 Albumin 2.5 Calcium Level 8.6 Alkaline Phosphatase 108 Aspartate Amino Transf (AST/SGOT) 22 Alanine Aminotransferase (ALT/SGPT) 14 Total Bilirubin 0.9 Sodium Level 138 Potassium Level 3.4 Chloride Level 109 Carbon Dioxide Level 18.9 Anion Gap 10 Estimat Glomerular Filtration Rate 49 Lipase 106 Urine Color YELLOW Urine Turbidity HAZY Urine pH 6.0 Urine Specific [place] 1.008 Urine Protein 30 Urine Glucose (UA) NEG Urine Ketones NEG Urine Occult Blood NEG Urine Nitrite NEG Urine Bilirubin NEG Urine Urobilinogen LESS THAN 2.0 Urine Leukocyte Esterase NEG Urine RBC LESS THAN 1 Urine WBC 1 Urine Amorphous Sediment FEW Urine Bacteria RARE Urine Mucus FEW Microscopic Urinalysis Comment CULT NOT INDICATED Stool C. difficile Toxin (PCR) POSITIVE Stl C. difficile Toxin Epiderm 027 PRESUMPTIVE NEGATIVE Prothrombin Time 12.8 Prothromb Time International Ratio 1.2 Activated Partial Thromboplast Time 33.6 Date/Time Source Procedure Growth Status 04/14/17 21:15 Blood Peripheral Aerobic Blood Culture Pending Received 04/14/17 21:15 Blood Peripheral Anaerobic Blood Culture Pending Received 04/14/17 20:00 Stool Stool Stool Pus (OLLIE) Pending Received Result Diagram: 04/14/17 1735 04/14/17 173 Caprin VTE Risk Assessment Caprini VTE Risk Assessment: Mod/High Risk (score >= 2) Caprini Risk Assessment Model Point Value = 1 Point Value = 2 Point Value = 3 Point Value = 5 Age 41-60 Minor surgery BMI > 25 kg/m2 Swollen legs Varicose veins or History of unexplained or recurrent spontaneous Oral contraceptives or hormone replacement Sepsis (< 1 month) Serious lung disease, including pneumonia (< 1 month) Abnormal pulmonary function Acute myocardial infarction Congestive heart failure (< 1 month) History of inflammatory bowel disease Medical patient at bed rest Age 61-74 Arthroscopic surgery Major open surgery (> 45 min) Laparoscopic surgery (> 45 min) Malignancy Confined to bed (> 72 hours) Immobilizing plaster cast Central venous access Age >= 75 History of VTE Family history of VTE Factor V Leiden Prothrombin [id number] Lupus anticoagulant Anticardiolipin antibodies Elevated serum homocysteine Heparin-induced thrombocytopenia Other congenital or acquired thrombophilia Stroke (< 1 month) Elective arthroplasty Hip, pelvis, or leg fracture Acute spinal cord injury (< 1 month) Prophylaxis Regimen Total Risk Factor Score Risk Level Prophylaxis Regimen 0-1 Low Early ambulation 2 Moderate Order ONE of the following: *Sequential Compression Device (SCD) *Heparin 5000 units SQ BID 3-4 Higher Order ONE of the following medications: *Heparin 5000 units SQ TID *Enoxaparin/Lovenox 40 mg SQ daily (WT < 150 kg, CrCl > 30 mL/min) *Enoxaparin/Lovenox 30 mg SQ daily (WT < 150 kg, CrCl > 10-29 mL/min) *Enoxaparin/Lovenox 30 mg SQ BID (WT < 150 kg, CrCl > 30 mL/min) AND/OR *Sequential Compression Device (SCD) 5 or more Highest Order ONE of the following medications: *Heparin 5000 units SQ TID (Preferred with Epidurals) *Enoxaparin/Lovenox 40 mg SQ daily (WT < 150 kg, CrCl > 30 mL/min) *Enoxaparin/Lovenox 30 mg SQ daily (WT < 150 kg, CrCl > 10-29 mL/min) *Enoxaparin/Lovenox 30 mg SQ BID (WT < 150 kg, CrCl > 30 mL/min) AND *Sequential Compression Device (SCD) Assessment and Plan Assessment and Plan 56-year-old male with a past medical history significant for insulin-dependent diabetes mellitus, coronary artery disease, hypertension and chronic kidney disease presents with diffuse colitis and a 1 month history of diarrhea. For the past week the patient has been having bloody stools. 1. C. difficile colitis/bloody stools/abdominal pain C. difficile toxin positive CT of the abdomen and pelvis showing diffuse colitis IV Flagyl Monitor CBC for signs of acute blood loss 2. Perirectal abscess, status post I&D Healing well Wound care consulted, appreciate assistance 3. Chronic kidney disease Patient's creatinine 1.75, baseline 2.3 Stable Continue to monitor 4. Insulin-dependent diabetes mellitus The patient reports he is on sliding scale insulin plus a long-acting although he cannot remember the dose SSI, add basal insulin prn A1C pending 5. Hypertension Continue home medications 6. Neuropathy Continue gabapentin 7. Hyperlipidemia Continue home statin FEN Heart healthy diet Electrolytes: K+ 3.4, supplemented Heparin Physician Certification 2 Midnight Certification Type: Admission for Inpatient Services Order for Inpatient Services The services are ordered in accordance with Medicare regulations or non- Medicare payer requirements, as applicable. In the case of services not specified as inpatient-only, they are appropriately provided as inpatient services in accordance with the 2-midnight benchmark. Estimated LOS (days): 2 2 days is the estimated time the patient will need to remain in the hospital, assuming treatment plan goals are met and no additional complications. Post-Hospital Plan: Not yet determined Alaina Simmons MD Apr 15, 2017 03:34
[2017-04-15] MEDS: HEPARIN SODIUM - SQ 10,000 UNITS/ML VIAL SQ SCH ×3 (05:31→22:00)
[2017-04-15] MEDS: metroNIDAZOLE 500 MG INJ 100 ML IV SCH ×2 (07:48→15:29)
[2017-04-15 08:00] LABS: AUTOMATED NEUTROPHIL # 5.1 TH/MM3 (1.8-7.7); BASOPHIL % 0.3 % (0.0-2.0); EOSINOPHIL # 0.2 TH/MM3 (0-0.4); HEMATOCRIT 34.4 % (39.0-51.0); HEMO FLAGS DIFF FINAL; LYMPH % 26.7 % (9.0-44.0); LYMPHOCYTE # 2.4 TH/MM3 (1.0-4.8); MEAN CELL VOLUME 92.2 FL (80.0-100.0); MEAN CORPUSCULAR HEMOGLOBIN 30.6 PG (27.0-34.0); MEAN CORPUSCULAR HGB CONC 33.2 % (32.0-36.0); MONO % 13.1 % (0.0-8.0); NEUT % 57.9 % (16.0-70.0); PLATELET COUNT 103 TH/MM3 (150-450); RED BLOOD COUNT 3.73 MIL/MM3 (4.50-5.90); RED CELL DISTRIBUTION WIDTH 15.2 % (11.6-17.2); WHITE BLOOD COUNT 8.9 TH/MM3 (4.0-11.0)
[2017-04-15] MEDS: INSULIN ASPART SUPPLEMENTAL SCALE SQ SCH ×4 (08:00→21:20)
[2017-04-15 08:25] LABS: BICARBONATE 20.9 MEQ/L (21.0-32.0); POTASSIUM 3.5 MEQ/L (3.5-5.1)
[2017-04-15] MEDS: SODIUM CHLORIDE 0.9% FLUSH 10 ML FLUSH IV FLUSH SCH ×2 (10:19→21:00)
[2017-04-15] MEDS: ASPIRIN 81 MG CHEW TAB CHEW SCH (10:20)
[2017-04-15] MEDS: PANTOPRAZOLE SOD 20 MG DELAYED RELEASE TAB PO SCH (10:20)
[2017-04-15] MEDS: PROPRANOLOL HCL 20 MG TAB PO SCH ×2 (10:20→22:22)
[2017-04-15] MEDS: LISINOPRIL 20 MG TAB PO SCH (10:20)
[2017-04-15 17:55] LABS: HEMOGLOBIN A1a 0.8 %; HEMOGLOBIN A1b 1.8 %; HEMOGLOBIN Ao 84.1 %; HEMOGLOBIN LA1C 2.4 %; HEMOGLOBIN P3 3.8 %
[2017-04-15] MEDS: GABAPENTIN 300 MG CAP PO SCH (21:20)
[2017-04-15] MEDS: MIRTAZAPINE 15 MG TAB PO SCH (21:20)
[2017-04-15] MEDS: ATORVASTATIN 40 MG TAB PO SCH (21:21)
[2017-04-16] VITALS (9 sets, daily range): BP systolic 106–141; BP diastolic 61–77; PULSE 60–77; RESP 16–21; TEMP 96–98.7; O2SAT 95–98
[2017-04-16] MEDS: metroNIDAZOLE 500 MG INJ 100 ML IV SCH ×2 (00:42→08:36)
[2017-04-16] MEDS: HEPARIN SODIUM - SQ 10,000 UNITS/ML VIAL SQ SCH ×3 (05:42→21:09)
[2017-04-16] MEDS: INSULIN ASPART SUPPLEMENTAL SCALE SQ SCH ×4 (08:00→21:47)
[2017-04-16] MEDS: PROPRANOLOL HCL 20 MG TAB PO SCH ×2 (08:36→21:06)
[2017-04-16] MEDS: PANTOPRAZOLE SOD 20 MG DELAYED RELEASE TAB PO SCH (08:36)
[2017-04-16] MEDS: LISINOPRIL 20 MG TAB PO SCH (08:36)
[2017-04-16] MEDS: ASPIRIN 81 MG CHEW TAB CHEW SCH (08:37)
[2017-04-16] MEDS: SODIUM CHLORIDE 0.9% FLUSH 10 ML FLUSH IV FLUSH SCH ×2 (08:37→21:07)
[2017-04-16] MEDS ORDERED: SODIUM CHLORID 0.9% 500 ML INJ 500 ML IV ONE (10:15)
--- NOTE | 2017-04-16 10:17 | HHI.PR ---
Subjective Remarks Seen in follow-up today for C. difficile colitis Less bowel movements and tenderness Patient feels better Plan of care discussed with patient and RN Objective Vitals Vital Signs Date Time Temp Pulse Resp B/P (MAP) Pulse Ox O2 Delivery O2 Flow Rate FiO2 04/16/17 07:24 98.5 77 21 118/77 (91) 95 04/16/17 03:55 96.0 75 16 133/61 (85) 97 04/16/17 03:20 75 04/16/17 00:12 75 04/15/17 23:28 96.6 78 16 111/57 (75) 96 04/15/17 22:04 98.7 80 18 111/65 (80) 97 04/15/17 20:05 79 04/15/17 16:06 98.8 71 18 131/79 (96) 98 04/15/17 15:10 69 04/15/17 11:34 98.5 79 18 120/69 (86) 98 I/O 04/15/17 04/15/17 04/15/17 04/16/17 04/16/17 04/16/17 07:00 15:00 23:00 07:00 15:00 23:00 Intake Total 240 ml 100 ml Balance 240 ml 100 ml Intake Oral 240 ml IV Total 100 ml # Voids 4 1 # Bowel Movements 4 1 Result Diagram: 04/15/1736 04/15/1736 Imaging Last Impressions Chest X-Ray 04/14/172058 Signed Impressions: Service Date/Time: Friday, April 14, 2017 21:01 - CONCLUSION: Normal examination. Free air is not seen. Domingo Nelson MD Abdomen/Pelvis CT 04/14/172047 Signed Impressions: Service Date/Time: Friday, April 14, 2017 21:45 - CONCLUSION: 1. Diffuse colitis. 2. Gallstones. Domingo Nelson MD Objective Remarks GENERAL: This is a well-nourished, well-developed patient, in no apparent distress. CARDIOVASCULAR: Regular rate and rhythm without murmurs, gallops, or rubs. RESPIRATORY: Clear to auscultation. Breath sounds equal bilaterally. No wheezes , rales, or rhonchi. GASTROINTESTINAL: Abdomen soft, non-tender, nondistended. Normal active bowel sounds MUSCULOSKELETAL: Extremities without clubbing, cyanosis, or edema. NEURO: Alert & Oriented x4 to person, place, time, situation. Moves all ext x4 A/P Problem List: (1) C. difficile colitis ICD Code: A04.72 - Enterocolitis due to Clostridium difficile, not specified as recurrent Plan: PO metronidazole x14d improved probiotic (2) Diabetes mellitus ICD Code: E11.9 - Type 2 diabetes mellitus without complications Status: Chronic Plan: On insulin per sliding scale, controlled Last hemoglobin A1c 6.7 (3) Hypertension ICD Code: I10 - Essential (primary) hypertension Status: Chronic Plan: Continue lisinopril and Inderal (4) CKD (chronic kidney disease), stage III ICD Code: N18.3 - Chronic kidney disease, stage 3 (moderate) Plan: avoid further nephrology toxic injury Improved after IV hydration (5) Acidosis, metabolic ICD Code: E87.2 - Acidosis Plan: due to sepsis, improved Assessment and Plan heparin 88 Discharge Planning Likely discharge in [place] Gold MD Apr 16, 2017 10:17
[2017-04-16] MEDS: LACTOBACILLUS ACIDOPHILUS 1 GM PACKET PO SCH ×2 (13:06→17:33)
[2017-04-16] MEDS: metroNIDAZOLE 500 MG TAB PO SCH ×2 (17:33→23:23)
--- NOTE | 2017-04-16 17:52 | PD.WCN.NOT ---
Wound Consult Description: Received consult from Doctor Simmons for wound management of perirectal wound Communicated with: FLORENCIA Bautista H pod and Spoke with Doctor Leong regarding orders. Received telephone order for wound care orders. Recommendation: 1.Please cleanse wound to L buttock with normal saline or wound cleanser and pack wound with Calcium Alginate (Maxorb II) and cover with bordered gauze. Please apply skin prep to intact skin before applying bordered gauze.Change dressing every 2 days or PRN if saturated or dislodged 2.Cleanse wound to R buttock with normal saline or wound cleanser and pat dry. Cover wound with bordered gauze and change dressing daily or PRN if saturated or dislodged. Please apply skin prep to intact skin before applying bordered gauze dressing. Additional Information: Patient seen on H pod for wound management of Estrellita rectal area. Patient is S/P I &D that was done in March. Home health care nurse have been changing dressings and wound has been healing per patient. Patient positioned himself in prone position for wound assessment. Removed bordered gauze dressing in place to L buttock to reveal full thickness wound. Wound measures 0.9cm x 1.5cm x 2.6 cm Wound has no tunneling or undermining. Wound bed is noted with clean 100% red granulation tissue. Wound drainage is scant and sero-sanguinous with out foul odor. Periwound is unremarkable. Cleansed L buttock wound with normal saline and pat dry. Packed wound with Maxorb II (Calcium Alginate) dressing and applied skin prep to periwound before securing dressing with bordered gauze. R buttock wound is shallow and non draining. Wound measures ~0.8cm x ~1cm x~ 0.1cm. Wound appears clean with 100% pink tissue. Cleansed wound with normal saline and applied skin prep to periwound before covering wound with bordered gauze. Patient positioned self for comfort. Bed was lowered to a safe height before leaving room. Patient tolerated dressing change well. Andressa Severino [facility] Apr 16, 2017 17:52
[2017-04-16] MEDS: MIRTAZAPINE 15 MG TAB PO SCH (21:05)
[2017-04-16] MEDS: ATORVASTATIN 40 MG TAB PO SCH (21:05)
[2017-04-16] MEDS: GABAPENTIN 300 MG CAP PO SCH (21:05)
[2017-04-17 00:15] VITALS: PULSE 75
[2017-04-17 00:58] VITALS: BP 116/61; PULSE 78; RESP 17; TEMP 96.9; O2SAT 96
[2017-04-17 04:00] VITALS: PULSE 77
[2017-04-17 04:08] VITALS: BP 102/61; PULSE 75; RESP 16; TEMP 96.7; O2SAT 95
[2017-04-17] MEDS: HEPARIN SODIUM - SQ 10,000 UNITS/ML VIAL SQ SCH (06:37)
[2017-04-17] MEDS: metroNIDAZOLE 500 MG TAB PO SCH (08:00)
[2017-04-17] MEDS: INSULIN ASPART SUPPLEMENTAL SCALE SQ SCH (08:00)
[2017-04-17 08:03] VITALS: BP 108/66; PULSE 73; RESP 18; TEMP 98.7; O2SAT 95
[2017-04-17] MEDS: SODIUM CHLORIDE 0.9% FLUSH 10 ML FLUSH IV FLUSH SCH (08:56)
[2017-04-17] MEDS: ASPIRIN 81 MG CHEW TAB CHEW SCH (08:56)
[2017-04-17] MEDS: LACTOBACILLUS ACIDOPHILUS 1 GM PACKET PO SCH (08:57)
[2017-04-17] MEDS: PROPRANOLOL HCL 20 MG TAB PO SCH (08:57)
[2017-04-17] MEDS: LISINOPRIL 20 MG TAB PO SCH (08:57)
[2017-04-17] MEDS: PANTOPRAZOLE SOD 20 MG DELAYED RELEASE TAB PO SCH (08:57)
[2017-04-17] MEDS ORDERED: METR1TAB76 PO (09:38)
--- NOTE | 2017-04-17 09:38 | HHI.DCPOC ---
Discharge Care Plan Diagnosis: (1) C. difficile colitis Goals to Promote Your Health * To prevent worsening of your condition and complications * To maintain your health at the optimal level Directions to Meet Your Goals Take your medications as prescribed Follow your dietary instruction Follow activity as directed Keep your appointments as scheduled Take your immunizations and boosters as scheduled If your symptoms worsen call your PCP, if no PCP go to Urgent Care Center or Emergency Room Smoking is Dangerous to Your Health. Avoid second hand smoke Call the 24-hour hour crisis hotline for domestic abuse at Socorro Leong MD Apr 17, 2017 09:38
--- NOTE | 2017-04-17 09:41 | HHI.DS ---
Discharge Summary Admission Date Apr 15, 2017 at 02:34 Discharge Date: Apr 17, 2017 Admitting Diagnosis Colitis, suspected C diff, bloody diarrhea (1) C. difficile colitis ICD Code: A04.72 - Enterocolitis due to Clostridium difficile, not specified as recurrent (2) Diabetes mellitus ICD Code: E11.9 - Type 2 diabetes mellitus without complications Status: Chronic (3) Hypertension ICD Code: I10 - Essential (primary) hypertension Status: Chronic (4) CKD (chronic kidney disease), stage III ICD Code: N18.3 - Chronic kidney disease, stage 3 (moderate) (5) Acidosis, metabolic ICD Code: E87.2 - Acidosis Procedures none Brief History - From Admission 56-year-old male with a past medical history significant for insulin-dependent diabetes mellitus, coronary artery disease and hypertension who presents to the emergency department with a 1 month history of diarrhea. The patient was recently discharged from [facility] [place] on 03/08/17 where he was admitted for sepsis related to the left buttock abscess. He is status post I&D by Dr. Wong. He states he has had diarrhea since his discharge however his abdominal pain and diarrhea has been worsening over the past week. He now reports blood in his stools. He states he had diarrhea approximately 20 times yesterday. He denies fever/chills. Endorses nausea. On last admission he was treated with multiple antibiotics including Flagyl, clindamycin and Levaquin. He has daily dressing changes with a home health nurse for his perirectal abscess which is healing well. He has a mild leukocytosis of 11.8, UA is unremarkable, chest x-ray within normal limits, CT of the abdomen and pelvis significant for diffuse colitis. H&H is 12.1/36.8. CBC/BMP: 04/15/17 0636 04/15/17 0636 Significant Findings Laboratory Tests Test 04/14/17 17:35 04/14/17 18:38 04/14/17 20:00 04/14/17 21:15 White Blood Count 11.8 TH/MM3 (4.0-11.0) Red Blood Count 3.96 MIL/MM3 (4.50-5.90) Hemoglobin 12.1 GM/DL (13.0-17.0) Hematocrit 36.8 % (39.0-51.0) Platelet Count 105 TH/MM3 (150-450) Monocytes (%) (Auto) 10.5 % (0.0-8.0) Neutrophils # (Auto) 8.2 TH/MM3 (1.8-7.7) Monocytes # (Auto) 1.2 TH/MM3 (0-0.9) Creatinine 1.75 MG/DL (0.60-1.30) Random Glucose 226 MG/DL (74-106) Albumin 2.5 GM/DL (3.4-5.0) Potassium Level 3.4 MEQ/L (3.5-5.1) Chloride Level 109 MEQ/L (98-107) Carbon Dioxide Level 18.9 MEQ/L (21.0-32.0) Estimat Glomerular Filtration Rate 49 ML/MIN (>89) Urine Turbidity HAZY (CLEAR) Urine Protein 30 mg/dL (NEG-TRACE) Urine Bacteria RARE /hpf (NONE) Urine Mucus FEW /lpf (OCC) Stool C. difficile Toxin (PCR) POSITIVE (NEGATIVE) Prothrombin Time 12.8 SEC (9.8-11.6) Activated Partial Thromboplast Time 33.6 SEC (24.3-30.1) Test 04/15/17 06:36 Red Blood Count 3.73 MIL/MM3 (4.50-5.90) Hemoglobin 11.4 GM/DL (13.0-17.0) Hematocrit 34.4 % (39.0-51.0) Platelet Count 103 TH/MM3 (150-450) Monocytes (%) (Auto) 13.1 % (0.0-8.0) Monocytes # (Auto) 1.2 TH/MM3 (0-0.9) Creatinine 1.68 MG/DL (0.60-1.30) Random Glucose 177 MG/DL (74-106) Calcium Level 8.1 MG/DL (8.5-10.1) Chloride Level 112 MEQ/L (98-107) Carbon Dioxide Level 20.9 MEQ/L (21.0-32.0) Estimat Glomerular Filtration Rate 51 ML/MIN (>89) Hemoglobin A1c 6.7 % (4.3-6.0) Imaging Last Impressions Chest X-Ray 04/14/172058 Signed Impressions: Service Date/Time: Friday, April 14, 2017 21:01 - CONCLUSION: Normal examination. Free air is not seen. Domingo Nelson MD Abdomen/Pelvis CT 04/14/172047 Signed Impressions: Service Date/Time: Friday, April 14, 2017 21:45 - CONCLUSION: 1. Diffuse colitis. 2. Gallstones. Domingo Nelson MD PE at Discharge GENERAL: This is a well-nourished, well-developed patient, in no apparent distress. CARDIOVASCULAR: Regular rate and rhythm without murmurs, gallops, or rubs. RESPIRATORY: Clear to auscultation. Breath sounds equal bilaterally. No wheezes , rales, or rhonchi. GASTROINTESTINAL: Abdomen soft, non-tender, nondistended. Normal active bowel sounds MUSCULOSKELETAL: Extremities without clubbing, cyanosis, or edema. NEURO: Alert & Oriented x4 to person, place, time, situation. Moves all ext x4 Pt update on day of discharge Patient doing better, minimal diarrhea and no pain. Discharge plans discussed with patient and he is aware and agreeable Hospital Course This patient is a 56-year-old gentleman with recent procedures who developed C. difficile colitis. He was treated appropriately with oral antibiotics and his symptoms improved. His diabetes and hypertension were managed well and he was discharged home. His perirectal wound was evaluated by wound care and wound care continued Pt Condition on Discharge: Good Discharge Disposition: Discharge Home Discharge Time: <= 30 minutes Discharge Instructions DIET: Follow Instructions for: Diabetic Diet Activities you can perform: Regular-No Restrictions Follow up Referrals: PCP Follow-up - 1 Week New Medications: Metronidazole (Metronidazole) 500 Mg Tab 500 MG PO TID for Infection, #33 TAB 0 Refills Continued Medications: Aspirin (Aspirin) 81 Mg Chew 81 MG CHEW DAILY, TAB 0 Refills Atorvastatin (Atorvastatin) 40 Mg Tab 40 MG PO HS for Cholesterol Management, #30 TAB 0 Refills Gabapentin (Gabapentin) 300 Mg Cap 300 MG PO HS, #30 CAP 0 Refills Lisinopril (Lisinopril) 20 Mg Tab 20 MG PO DAILY, #30 TAB 0 Refills Mirtazapine (Mirtazapine) 15 Mg Tab 15 MG PO HS for Depression Control, #30 TAB 0 Refills Omeprazole (Omeprazole) 20 Mg Tab 20 MG PO DAILY, #30 TAB 0 Refills Oxycodone (Oxycodone) 5 Mg Cap 5 MG PO TID PRN for PAIN, CAP 0 Refills Propranolol (Propranolol) 20 Mg Tab 20 MG PO Q12HR, #60 TAB 0 Refills Additional Information 1.Please cleanse wound to L buttock with normal saline or wound cleanser and pack wound with Calcium Alginate (Maxorb II) and cover with bordered gauze. Please apply skin prep to intact skin before applying bordered gauze.Change dressing every 2 days or PRN if saturated or dislodged 2.Cleanse wound to R buttock with normal saline or wound cleanser and pat dry. Cover wound with bordered gauze and change dressing daily or PRN if saturated or dislodged. Please apply skin prep to intact skin before applying bordered gauze dressing. Socorro Leong MD Apr 17, 2017 09:41
== END 2017-04-17 10:41 | disposition home or self-care (01) | DRG 372 ==
LOC: NEPC 17:04 → NEDA 23:07 → UNDOADMIN 23:07 → NEDA 23:57 → INTOOBSV 23:57 → NEPHCDU 04-15 00:49 → OBSVTOIN 04-15 02:34
PROVIDERS: ADMIT Hospitalist; ATTEND Hospitalist
DX: A04.72 Enterocolitis due to Clostridium difficile, not specified as recurrent (principal); K61.1 Rectal abscess; E11.22 Type 2 diabetes mellitus with diabetic chronic kidney disease; E87.2 Acidosis; G62.9 Polyneuropathy, unspecified; K21.9 Gastro-esophageal reflux disease without esophagitis; I12.9 Hypertensive chronic kidney disease with stage 1 through stage 4 chronic kidney disease, or unspecified chronic kidney disease; N18.9 Chronic kidney disease, unspecified; J44.9 Chronic obstructive pulmonary disease, unspecified; I25.10 Atherosclerotic heart disease of native coronary artery without angina pectoris; I25.2 Old myocardial infarction; G47.30 Sleep apnea, unspecified; K80.20 Calculus of gallbladder without cholecystitis without obstruction; E78.5 Hyperlipidemia, unspecified; M19.90 Unspecified osteoarthritis, unspecified site; F17.210 Nicotine dependence, cigarettes, uncomplicated; Z79.4 Long term (current) use of insulin; Z88.0 Allergy status to penicillin; Z91.013 Allergy to seafood
CPT/HCPCS: 71010; 74177; 80048; 80053; 81001; 82948; 83036; 83690; 85025; 85610; 85730; 86850; 86900; 86901; 87040; 87077; 87186; 87205; 87493; 87506; 96361; 96374; J1644; J1650; J1815; J2405; J7030; J7040; Q9967